=== PATIENT | female | born 1950 | race Caucasian/White ===

== ENCOUNTER → 2017-04-02 | Outpatient (CLI) | payer OTHER ==
--- NOTE | 2017-04-02 16:41 | MAMMOGRAPHY REPORT ---
BILATERAL DIGITAL SCREENING MAMMOGRAM WITH CAD: 04/02/2017 CLINICAL HISTORY: Routine screening. Patient has no complaints. TECHNIQUE: Bilateral CC and MLO views were obtained. Current study was also evaluated with a Comput er Aided Detection (CAD) system. COMPARISON: Comparison is made to exams dated: 03/29/2016 mammogram, 03/28/2015 mammogram, 01/13/2014 m ammogram - [facility], 01/20/2013 mammogram, and 02/02/2013 mammogram - [facility]. BREAST COMPOSITION: The tissue of both breasts is heterogeneously dense, which may obscure small ma sses. FINDINGS: There is a 10 mm focal asymmetry in the upper outer posterior left breast, for which charlie tional spot compression tomosynthesis views and targeted ultrasound are recommended. A possible clu ster of microcalcifications in the posterior left breast, along the posterior nipple line on the CC view, thought to project inferiorly on the MLO view, warrant additional spot magnification views. There are stable postsurgical changes in the right breast, with a few stable coarse benign-appearing calcifications. No other suspicious mass, architectural distortion or cluster of microcalcification s is seen. IMPRESSION: ACR BI-RADS CATEGORY 0: INCOMPLETE EVALUATION: NEED ADDITIONAL IMAGING EVALUATION The 10 mm focal asymmetry in the left upper outer breast, and possible cluster of microcalcification s in the posterior left breast need additional evaluation. The patient will be called to schedule an appointment. Approximately 10% of breast cancers are not detected with mammography. A negative mammographic repor t should not delay biopsy if a clinically suggestive mass is present. Johana Hahn M.D. ay/:04/02/2017 15:35:44 Line Repairer: Katya LOMBARDO(Lou)(Malia), [facility] letter sent: Addl Imaging 0 BI-RADS Code: ACR BI-RADS Category 0: Incomplete Evaluation: Need Additional Imaging Evaluation
== END | disposition home or self-care (01) ==
LOC: C.MAMM 08:57
PROVIDERS: ATTEND Family Medicine
DX: Z12.31 Encounter for screening mammogram for malignant neoplasm of breast (principal); N64.9 Disorder of breast, unspecified

== ENCOUNTER → 2017-04-10 | Outpatient (CLI) | payer OTHER ==
--- NOTE | 2017-04-10 14:11 | MAMMOGRAPHY REPORT ---
UNILATERAL LEFT DIGITAL DIAGNOSTIC MAMMOGRAM TOMOSYNTHESIS AND TARGETED LEFT ULTRASOUND: 04/10/2017 CLINICAL HISTORY: Callback from screening mammogram for left breast asymmetry and left breast calcif ications. TECHNIQUE: Breast tomosynthesis in addition to standard 2D mammography was performed. Spot giorgi khris left CC and MLO 2-D and tomosynthesis images, spot magnification left CC and ML views, and 2-D left MLO views were obtained. COMPARISON: Comparison is made to exams dated: 04/02/2017 mammogram, 03/29/2016 mammogram, 03/28/2015 mammogram, 01/13/2014 mammogram, 10/02/2013 specimen, and 10/02/2013 [facility]. BREAST COMPOSITION: The tissue of the left breast is heterogeneously dense, which may obscure small masses. FINDINGS: Spot compression views of the left breast demonstrate a focal asymmetry in the left upper outer quadrant with a nodular 7 mm component, best seen on the MLO view. The asymmetry appears some what similar to the January 2014 exam although the nodular component is new. Spot magnification views of the left breast demonstrate a 9 mm group of punctate and round calcifications in the left centra l breast posteriorly, which appear slightly increased compared to prior exams. Given the interval i ncrease, the calcifications are indeterminate and stereotactic biopsy is recommended for further dmitry luation. Targeted ultrasound was performed of the left upper outer quadrant in the region of the focal asymme try. In the left breast at 1:00, 8 cm from the nipple, there is a grouping of 3 oval anechoic circu mscribed masses, two measuring 4 mm and the other measuring 3 mm. These are consistent with benign simple cysts and correspond with the focal asymmetry. No suspicious solid masses are seen in this r egion. IMPRESSION: ACR BI-RADS CATEGORY 4: SUSPICIOUS, TARGETED ULTRASOUND ACR BI-RADS CATEGORY 4: SUSPICI OUS 1. Grouped calcifications in the left central breast posteriorly are increased compared to prior ex ams and are therefore indeterminant. Recommend stereotactic biopsy for further evaluation. 2. Group of 3 adjacent benign cysts in the left breast at 1:00 on ultrasound, which correspond with the mammographic focal asymmetry. A phone call was made to the physician's office to confirm faxed results were received. The patient has been verbally notified of the results. She tentatively scheduled the biopsy before leaving the department. Approximately 10% of breast cancers are not detected with mammography. A negative mammographic repor t should not delay biopsy if a clinically suggestive mass is present. Martina Ty M.D. ah/:04/10/2017 12:03:17 Pathology Manager: Kellie PHAM (R)), [facility] letter sent: Abnormal 4/5 BI-RADS Code: ACR BI-RADS Category 4: Suspicious Ultrasound BI-RADS: ACR BI-RADS Category 4: Suspic ious
== END | disposition home or self-care (01) ==
LOC: C.MAMM 11:16
PROVIDERS: ATTEND Family Medicine
DX: R92.0 Mammographic microcalcification found on diagnostic imaging of breast (principal)

== ENCOUNTER → 2017-04-16 | Outpatient (CLI) | payer OTHER ==
--- NOTE | 2017-04-16 13:29 | Discharge Instructions ---
Discharge Instructions Procedure Procedure Date: Apr 16, 2017. Reason for visit: Left Calcifications. Discharge Discharge Date: Apr 16, 2017. Discharge Diagnosis: post left breast stereotactic guided biopsy Instructions Activity Recommendations: Additional Limitations (see below) Return to School/Work: no limitations Recommended Home Diet: No Limitations Provider Instructions: ACTIVITY RECOMMENDATIONS: * No lifting, pushing, pulling or exercising the affected side for three days. RETURN TO SCHOOL/WORK: * You may return to work/school after the procedure, but do not perform any strenuous activities for 24 to 48 hours. MEDICATIONS: * Tylenol (two 325 mg) every four to six hours if needed for mild pain (if not allergic to Tylenol). DIET: * Resume previous diet. SPECIAL CARE INSTRUCTIONS: * Keep biopsy site dry for 24 hours. May shower after 24 hours, but do not soak (bathe) incision. * May remove Tegaderm (plastic patch) tomorrow AFTER showering. * Leave the steri-strips on for one week. Allow the steri-strips to fall off by themselves. If not off after one week, you may remove them. You may place a Bandaid crosswise over the strips, if desired. * Apply ice 10 minutes on and 10 minutes off as needed. * Wear a bra at bedtime to sleep more comfortably for 2-3 days. * Your referring physician should have the results after approximately 5 to 7 business days. * Call for unusual bleeding, fever, drainage, etc or if you have any questions call [phone] during normal business hours or after hours call Dr Hahn, . FOLLOW UP VISIT: Follow-up with Referring Physician as scheduled. Allergies Coded Allergies: Propoxyphene (Verified Allergy, Unknown, GI SYMPTOMS, 10/02/13) Tom Coronado Recommendations: Call your doctor if: * Temperature above 101 degrees * Pain not relieved by pain medicine ordered * There is increased drainage or redness from any incision * You have any unanswered questions or concerns. Your Doctors Instructions noted above were prepared by provider Johana Hahn. Patient Signature Section: Patient Instructions Signature Page Suzanne Maddox Patient (or Guardian) Signature/Date: I have read and understand the instructions given to me by my caregivers. Caregiver/RN/Doctor Signature/Date: The above-named patient and/or guardian has received patient instructions on this date. + Original Patient Signature Page (only) stays with chart. Please make copy for patient.
--- NOTE | 2017-04-16 16:15 | MAMMOGRAPHY REPORT ---
THIS REPORT HAS BEEN AMENDED. AMENDMENT: 04/24/2017 Johana Hahn M.D. Pathology results from a stereotactic guided biopsy of clustered microcalcifications in the 6:00 post erior left breast yielded a fibroadenomatoid nodule with microcalcifications. Negative for in situ a nd invasive carcinoma. The pathology results are concordant with the imaging appearance. Given that a another similar appearing cluster of microcalcifications was identified posterior to the biopsied cluster during the biopsy imaging, a six-month follow-up diagnostic left mammogram including repeat s pot magnification views is recommended to ensure stability of the other cluster in 6 months. STEREOTACTIC GUIDED BIOPSY LEFT BREAST: 04/16/2017 CLINICAL HISTORY: Indeterminate clustered microcalcifications in the 6:00 posterior left breast. Pat ient present for stereotactic biopsy. COMPARISON: Comparison is made to exams dated: 04/10/2017 ultrasound, 04/10/2017 mammogram, 04/02/2017 mammogram, 03/29/2016 mammogram, 03/28/2015 mammogram, and 01/13/2014 mammogram - [facility]. PATIENT CONSENT: After explaining the risks, benefits and alternatives of the procedure to the patien t, informed consent was obtained both verbally and in writing. Specific risks include: Bleeding, inf ection, puncture of adjacent structure, pain, nontarget biopsy, sampling error, metal allergy and med ication reaction. PROCEDURE DESCRIPTION: A time-out was performed and the left breast was confirmed as the site of biop sy. The patient was placed prone on the stereotactic biopsy table and the breast was placed in CC fro m below compression. A battery plate remover image was obtained that demonstrated the clustered microcalcifications i n question. They are amenable to sterotactic biopsy. Then +15 and -15 stereo pair images were obta ined. The calcifications were targeted utilizing the coordinates obtained by the computer. The skin was prepped with Betadine. 1% Lidocaine with and without epinipherine was administered as local anest hesia. A small skin incision was made. Through the incision, the needle was inserted to the depth de termined by the computer. 6 samples were obtained using a batterii 9-gauge vacuum-assisted biopsy device. The specimen radiograph demonstrated several sales representative sales manager microcalcifications, therefore, a metallic marker was placed at the biopsy site. There was no immediate complication. Hemostasis was a chieved after several minutes of manual compression. The samples were sent to pathology in 1 appropr iately labeled container, as calcifications were scattered throughout all of the specimen obtained. Postprocedure CC and ML views of the left breast were obtained. There is a new dumbbell shaped meta llic biopsy marker and no significant hematoma in the 6:00 far posterior left breast, at the site of the clustered microcalcifications in question. It should be noted that a second similar appearing cl uster of round and punctate microcalcifications is identified 16 mm posterior to the metallic biopsy marker, which are located more posterior than the biopsied cluster and were not identified on prior e xams given the far posterior location. Given that the morphology is similar to the biopsied cluster, pending benign pathology results could follow this additional cluster in 6 months to ensure stabilit y. IMPRESSION: STEREOTACTIC GUIDED BIOPSY 1. Status post left breast stereotactic guided biopsy of a cluster of microcalcifications in the 6:0 0 posterior left breast, with biopsy marker placed at the site. 2. A second similar appearing cluster of rounded punctate microcalcifications was visualized posteri or to the biopsy marker clip on the postprocedure mammograms, and given the far posterior location wa s not seen on prior screening or diagnostic mammograms. Given that the morphology is similar to the biopsied cluster, pending benign pathology results could follow this second cluster in 6 months to en sure stability. The patient will receive notification of the biopsy results from her referring physician. Johana Hahn M.D. ay/:04/16/2017 13:41:27 Attending Technologist: Katya Russell RT(R)(M), [facility] Senior Ios Software Engineer: Ame LOMBARDO(R)(M), [facility]
--- NOTE | 2017-04-16 16:17 | MAMMOGRAPHY REPORT ---
UNILATERAL LEFT DIGITAL DIAGNOSTIC MAMMOGRAM: 04/16/2017 CLINICAL HISTORY: Status post stereotactic guided biopsy of clustered microcalcifications in the 6:00 posterior left breast. Please refer to the report from left breast stereotactic biopsy performed at the same time for full d etail. IMPRESSION: POST PROCEDURE IMAGING FOR MARKER PLACEMENT Please refer to the report from left breast stereotactic biopsy performed at the same time for full d etail. Approximately 10% of breast cancers are not detected with mammography. A negative mammographic report should not delay biopsy if a clinically suggestive mass is present. Johana Hahn M.D. ay/:04/16/2017 13:30:16 Attending Technologist: Katya Russell RT(R)(M), [facility] [employer] Specialists: Ame Rothman RT(R)(M), [facility] BI-RADS Code: Post Procedure Imaging For Marker Placement
== END | disposition home or self-care (01) ==
LOC: C.MAMM 12:06
PROVIDERS: ATTEND Family Medicine
DX: R92.0 Mammographic microcalcification found on diagnostic imaging of breast (principal); D24.2 Benign neoplasm of left breast

== ENCOUNTER → 2017-10-17 | Outpatient (CLI) | payer OTHER ==
--- NOTE | 2017-10-17 14:36 | MAMMOGRAPHY REPORT ---
UNILATERAL LEFT DIGITAL DIAGNOSTIC MAMMOGRAM WITH CAD: 10/17/2017 CLINICAL HISTORY: History of benign stereotactic biopsy of left breast calcifications, with pathology yielding a fibroadenomatoid nodule. The patient presents for short interval follow-up another clust er of calcifications in the left breast. TECHNIQUE: Current study was also evaluated with a Computer Aided Detection (CAD) system. Left CC a nd MLO and spot magnification left CC and MLO views were obtained. COMPARISON: Comparison is made to exams dated: 04/16/2017 mammogram, 04/16/2017 stereotactic biopsy, 03/13 ultrasound, 04/10/2017 mammogram, 04/02/2017 mammogram, and 03/29/2016 mammogram - [facility]. BREAST COMPOSITION: The tissue of the left breast is heterogeneously dense, which may obscure small masses. FINDINGS: A biopsy marker clip is seen within the left 6:00 posterior breast from prior benign stere otactic biopsy. In the left central breast, posterior to the biopsy marker clip on the cc view, ther e is a small 2 mm cluster of punctate calcifications. The calcifications are stable compared to the postprocedural mammograms dated 04/16/2017. Additionally, the calcifications appear similar to the rec ently biopsied calcifications which yielded benign pathology. The calcifications are probably benign and another short interval follow-up is recommended. The remainder of the left breast is stable compared to prior exams, without suspicious masses, calcif ications, or areas of architectural distortion noted. Other scattered benign-appearing calcification s are not significantly changed. Left superior breast asymmetry on the MLO view is stable compared t o multiple prior exams. IMPRESSION: ACR-BI-RADS CATEGORY 3: PROBABLY BENIGN Small 2 mm cluster of calcifications in the left central posterior breast is stable compared to the J une 2017 exam and appears similar to the recently biopsied calcifications which yielded benign pathol ogy. The calcifications are probably benign and recommend bilateral diagnostic mammograms in 6 month s to reevaluate the left breast calcifications and for routine mammography of the right breast. The patient has been verbally notified of the results. Approximately 10% of breast cancers are not detected with mammography. A negative mammographic report should not delay biopsy if a clinically suggestive mass is present. Martina Ty M.D. ah/:10/17/2017 14:09:17 Spray Gun Sizer: Susu Carter, [facility] letter sent: Follow Up Recommended 3 BI-RADS Code: ACR-BI-RADS Category 3: Probably Benign
== END | disposition home or self-care (01) ==
LOC: C.MAMM 13:19
PROVIDERS: ATTEND Family Medicine
DX: Z12.31 Encounter for screening mammogram for malignant neoplasm of breast (principal); R92.1 Mammographic calcification found on diagnostic imaging of breast

== ENCOUNTER 2018-01-21 17:45 | Inpatient (IN) | payer OTHER ==
[~2018-01-21] VITALS: Ht 165.1 cm; Wt 91.2 kg
[2018-01-21] MEDS ORDERED: DILTIAZEM HCL 5 MG/ML 5 ML VIAL IV STA (19:57)
[2018-01-21] MEDS ORDERED: DILTIAZEM BOLUS / DRIP IV STA ×2 (19:57→21:01)
[2018-01-21] MEDS ORDERED: COEN1CAP PO (20:12)
[2018-01-21] MEDS ORDERED: FERR1TAB13 PO (20:12)
[2018-01-21] MEDS ORDERED: GLC/500 PO (20:12)
[2018-01-21] MEDS ORDERED: CRS10 PO (20:12)
[2018-01-21] MEDS ORDERED: GLIM1TAB PO (20:12)
[2018-01-21] MEDS ORDERED: KRIL1CAP24 (20:12)
[2018-01-21] MEDS ORDERED: CZR50 PO (20:12)
[2018-01-21] MEDS ORDERED: FURO-85 PO (20:12)
[2018-01-21] MEDS ORDERED: FERR1TAB23 PO (20:12)
[2018-01-21 20:24] LABS: BASO % 0.2 %; BASO ABS # 0.02 K/uL (0-0.2); EOS % 0.1 %; EOS ABS # 0.01 K/uL (0-0.5); HEMATOCRIT 40.3 % (37-47); HEMOGLOBIN 13.5 g/dL (12.0-16.0); IG# 0.03 K/uL (0.00-0.02); LYMPH % 15.7 %; LYMPH ABS # 1.72 K/uL (1.2-3.4); MEAN CELL VOLUME 83.8 fL (80-100); MEAN CORPUSCULAR HEMOGLOBIN 28.1 pg (25-34); MEAN CORPUSCULAR HGB CONC 33.5 g/dl (32-36); MEAN PLATELET VOLUME 10.3 fL (7.4-10.4); MONO % 5.3 %; MONO ABS # 0.58 K/uL (0.11-0.59); NEUT % 78.4 %; NEUT ABS # 8.63 K/uL (1.4-6.5); PLATELET COUNT 487 K/uL (130-400); RED CELL DISTRIBUTION WIDTH SD 46.4 fL (36.4-46.3); WHITE BLOOD COUNT 10.99 K/uL (4.8-10.8)
[2018-01-21] MEDS: DILTIAZEM HCL INJ 125 MG in DEXTROSE 5% 100ML IV PRN (20:35)
[2018-01-21 20:38] LABS: CALCIUM 9.6 mg/dl (8.5-10.1); CREATININE 1.01 mg/dl (0.60-1.20); POTASSIUM 3.7 mmol/L (3.5-5.1)
--- NOTE | 2018-01-21 20:42 | DIAGNOSTIC IMAGING REPORT ---
CHEST ONE VIEW PORTABLE CLINICAL HISTORY: Shortness of breath. COMPARISON STUDY: No previous studies for comparison. FINDINGS: Lung volumes are normal. No pneumothorax or pleural effusion is noted. There is no evidence for pulmonary edema. Moderate cardiomegaly is noted. Lower mediastinal contour abnormality favors a hiatal hernia. IMPRESSION: 1. No consolidation to suggest pneumonia. 2. Moderate cardiomegaly without evidence for pulmonary edema. 3. Lower mediastinal contour abnormality which is nonspecific but favors a hiatal hernia. Follow-up PA and lateral chest radiographs are recommended. Electronically signed by: Hussain German M.D. 01/21/2018 8:41 PM Dictated Date/Time: 01/21/2018 8:40 PM
[2018-01-21] MEDS ORDERED: ALUMINUM/MAGNESIUM/SIMETH (MAALOX MAX) 30 ML UDC PO PRN (21:15)
[2018-01-21] MEDS ORDERED: ACETAMINOPHEN 325 MG TAB PO PRN (21:15)
[2018-01-21] MEDS ORDERED: ONDANSETRON INJ 2 MG/ML 2 ML VIAL IV PRN (21:15)
[2018-01-21] MEDS ORDERED: POLYETHYLENE (MIRALAX) 17 GM PACK PO PRN (21:15)
[2018-01-21] MEDS ORDERED: MAGNESIUM HYDROXIDE SUSP 30 ML UDC PO PRN (21:15)
[2018-01-21] MEDS ORDERED: MoRPHine SULFATE 2 MG/ML CARP IV PRN (21:15)
[2018-01-21] MEDS ORDERED: ZOLPIDEM TARTRATE 5 MG TAB PO PRN (21:15)
[2018-01-21] MEDS ORDERED: ENOXAPARIN 100 MG/1ML SYR SQ STA (21:30)
--- NOTE | 2018-01-21 21:37 | History and Physical ---
History & Physical Date & Time of Service: Jan 21, 2018 at 21:29 Chief Complaint: A-Fib,Irregular Heart Beat Primary Care Physician: Rickey Maddox D.O. History of Present Illness Source: patient, hospital records 67 y/o F Hx DM II, HTN, HPL, obese. Pt visited her primary MD for a 3 month routine DM visit. Her MD listened to her heart and noted and irregular rapid rate. AN EKG was obtained confirming AF w a rapid response. She was referred to the hospital for further evaluation. She denies CP, SOB, N/V or fevers. She c/o some fatigue over the last few months. She has otherwise not been aware of her irregular, rapid heart rhythm. Past Medical/Surgical History 1) DM 2) HTN 3) HPL 4) Obese Family History No pertinent family history Mother living - DM Father CAD Social History Smoking Status: Never Smoker Allergies Coded Allergies: Propoxyphene (Verified Allergy, Unknown, GI SYMPTOMS, 01/21/18) Home Medications Scheduled Ferrous Sulfate (Kp Ferrous Sulfate), 1 TAB PO DAILY Furosemide (Lasix), 20 MG PO DAILY Glimepiride (Amaryl), 1 MG PO QPM Losartan Potassium (Losartan Potassium), 50 MG PO DAILY Metformin Hcl (Glucophage), 500 MG PO BID Rosuvastatin Calcium (Crestor), 10 MG PO QPM Miscellaneous Medications Coenzyme Q10 (Ubidecarenone) (Co Q10), 1 CAP PO Ferrous Sulfate (Iron), 325 MG PO Krill Oil (Krill Oil 500 mg) Review of Systems Constitutional: + fatigue, No fever, No chills, No sweats Eyes: No worsening of vision ENT: No hearing loss, No nasal symptoms Respiratory: No cough, No sputum, No wheezing Cardiovascular: No chest pain, No orthopnea, No PND Abdomen: No pain, No nausea, No vomiting Musculoskeletal: No joint pain Genitourinary - Female: No dysuria, No urinary frequency, No urinary urgency Neurologic: No memory loss, No paralysis, No weakness Psychiatric: No depression symptoms Endocrine: + fatigue Hematologic / Lymphatic: No abnormal bleeding/bruising Integumentary: No rash Physical Exam Vital Signs Date Time Temp Pulse Resp B/P (MAP) Pulse Ox O2 Delivery O2 Flow Rate FiO2 01/21/18 20:15 135 16 97 01/21/18 20:14 137 01/21/18 20:11 128/97 01/21/18 18:00 96 Room Air 01/21/18 17:56 36.9 123 20 136/97 96 Room Air General Appearance: WD/WN, no apparent distress Head: normocephalic Eyes: normal inspection ENT: normal ENT inspection, pharynx normal Neck: supple, no adenopathy, no JVD Respiratory/Chest: chest non-tender, lungs clear, normal breath sounds Cardiovascular: regular rate, rhythm, no edema, no gallop Abdomen/GI: normal bowel sounds, non tender, soft Back: normal inspection, no CVA tenderness Extremities/Musculoskelatal: normal inspection, no calf tenderness, normal capillary refill Neurologic/Psych: nozzle operator II-XII nml as tested, no motor/sensory deficits, alert Skin: normal color Diagnostics Laboratory Results Results Past 24 Hours Test 01/21/18 20:05 01/21/18 20:10 Range/Units White Blood Count 10.99 4.8-10.8 K/uL Red Blood Count 4.81 4.2-5.4 M/uL Hemoglobin 13.5 12.0-16.0 g/dL Hematocrit 40.3 37-47 % Mean Corpuscular Volume 83.8 80-100 fL Mean Corpuscular Hemoglobin 28.1 25-34 pg Mean Corpuscular Hemoglobin Concent 33.5 32-36 g/dl Platelet Count 487 130-400 K/uL Mean Platelet Volume 10.3 7.4-10.4 fL Neutrophils (%) (Auto) 78.4 % Lymphocytes (%) (Auto) 15.7 % Monocytes (%) (Auto) 5.3 % Eosinophils (%) (Auto) 0.1 % Basophils (%) (Auto) 0.2 % Neutrophils # (Auto) 8.63 1.4-6.5 K/uL Lymphocytes # (Auto) 1.72 1.2-3.4 K/uL Monocytes # (Auto) 0.58 0.11-0.59 K/uL Eosinophils # (Auto) 0.01 0-0.5 K/uL Basophils # (Auto) 0.02 0-0.2 K/uL RDW Standard Deviation 46.4 36.4-46.3 fL RDW Coefficient of Variation 15.0 11.5-14.5 % Immature Granulocyte % (Auto) 0.3 % Immature Granulocyte # (Auto) 0.03 0.00-0.02 K/uL Prothrombin Time 10.6 9.0-12.0 SECONDS Prothromb Time International Ratio 1.0 0.9-1.1 Activated Partial Thromboplast Time 26.0 21.0-31.0 SECONDS Partial Thromboplastin Ratio 1.0 Sodium Level 136 136-145 mmol/L Potassium Level 3.7 3.5-5.1 mmol/L Chloride Level 101 98-107 mmol/L Carbon Dioxide Level 26 21-32 mmol/L Anion Gap 9.0 3-11 mmol/L Blood Urea Nitrogen 12 7-18 mg/dl Creatinine 1.01 0.60-1.20 mg/dl Est Creatinine Clear Calc Drug Dose 59.3 ml/min Estimated GFR () 65.8 Estimated GFR (Non- 56.8 BUN/Creatinine Ratio 11.9 10-20 Random Glucose 215 70-99 mg/dl Calcium Level 9.6 8.5-10.1 mg/dl Magnesium Level 2.2 1.8-2.4 mg/dl Thyroid Stimulating Hormone (TSH) 2.090 0.300-4.500 uIu/ml Free Thyroxine 1.20 0.80-1.60 ng/dl Bedside Troponin I 0.030 0-0.045 ng/ml EKG AF, RVR - rate ~ 150 Impression Assessment and Plan 67 y/o F Hx DM II, HTN, HPL, obese. Pt visited her primary MD for a 3 month routine DM visit. Her MD listened to her heart and noted and irregular rapid rate. AN EKG was obtained confirming AF w a rapid response. She was referred to the hospital for further evaluation. She denies CP, SOB, N/V or fevers. She c/o some fatigue over the last few months. She has otherwise not been aware of her irregular, rapid heart rhythm. 1) AF/RVR - placed on a Cardizem drip and anticoagulated with Lovenox. We will request an echo and cardiology evaluation AM. She is seemingly a good candidate for oral anticoagulation and qualifies based on her CHADs score. 2) HTN - Losartan held to allow for additional rate agents at present 3) DM - placed on SS 4) HPL - cont Crestor Full code - Lovenox prophylaxis Total time for this admit including review of labs, meds, imaging, records, EKG - discussion with pt and ER attending - 45 min Resuscitation Status VTE Prophylaxis Will order VTE Prophylaxis: Yes
[2018-01-21] MEDS: INSULIN ASPART 100 UNITS/ML 3 ML PEN SC SCH (22:00)
--- NOTE | 2018-01-21 22:09 | EMERGENCY ROOM VISIT NOTE ---
History Report prepared by Mani: Ramirez Miramontes Under the Supervision of: Dr. Edilberto Tan M.D. First contact with patient: 19:50 Chief Complaint: IRREGULAR HEARTBEAT Stated Complaint: A-FIB,IRREGULAR HEART BEAT Nursing Triage Summary: Patient ambulatory to triage with an upright and steady gait, states "I had my 3 month diabetes check with my PCP. He listened to my heart and said it was irregular. He said my heart has never sounded like this before. I have been told that I have an extra beat before. Today, they did an EKG and said that I am in A.Fib. I have never had that before. I have been feeling tired a lot recently. Sometimes, while doing steps, I feel short of breath." History of Present Illness The patient is a 67 year old female with a history of diabetes who presents to the Emergency Room with complaints of a persistent irregular heartbeat that was detected earlier this afternoon. She states that she went to her primary care physician's office for a routine checkup, and the doctor noticed that the patient had an irregular heartbeat that was most likely atrial fibrillation. The patient says that she has been a bit fatigued recently, and has noticed some shortness of breath when walking up and down stairs, but has mostly been feeling fine. She notes that she has not been having any pain. The patient adds that a year ago her primary care physician noticed that the patient had an extra beat. She denies any history of bleeding in her head or abdomen. The patient denies any fevers, chest pain, sensations of heart racing, vomiting, diarrhea, melena, or hematochezia. She also denies ever feeling like she will pass out. Source of History: patient Onset: Detected earlier this afternoon Position: other (heart) Symptom Intensity: atrial fibrillation Quality: other (irregular heartbeat) Timing: other (persistent) Associated Symptoms: No LOC, No fevers, No chest pain, No melena, No hematochezia Note: Associated symptoms: Denies sensations of heart racing. Review of Systems See HPI for pertinent positives & negatives. A total of 10 systems reviewed and were otherwise negative. Past Medical & Surgical Medical Problems: (1) Atrial fibrillation with rapid ventricular response (2) Diabetes (3) History of irregular heartbeat Family History No pertinent family history Social History Smoking Status: Never Smoker Drug Use: none Marital Status: Housing Status: lives with family Current/Historical Medications Scheduled Ferrous Sulfate ( Ferrous Sulfate), 1 TAB PO DAILY Furosemide (Lasix), 20 MG PO DAILY Glimepiride (Amaryl), 1 MG PO QPM Losartan Potassium (Losartan Potassium), 50 MG PO DAILY Metformin Hcl (Glucophage), 500 MG PO BID Rosuvastatin Calcium (Crestor), 10 MG PO QPM Miscellaneous Medications Coenzyme Q10 (Ubidecarenone) (Co Q10), 1 CAP PO Ferrous Sulfate (Iron), 325 MG PO Krill Oil (Krill Oil 500 mg) Allergies Coded Allergies: Propoxyphene (Verified Allergy, Unknown, GI SYMPTOMS, 01/21/18) Physical Exam Vital Signs Date Time Temp Pulse Resp B/P (MAP) Pulse Ox O2 Delivery O2 Flow Rate FiO2 01/21/18 21:06 132/90 01/21/18 21:05 126 14 97 01/21/18 21:01 117/87 01/21/18 21:00 126 15 97 01/21/18 20:56 125/84 01/21/18 20:55 122 12 97 01/21/18 20:51 117/80 01/21/18 20:50 124 12 96 01/21/18 20:46 127/105 01/21/18 20:45 136 12 97 01/21/18 20:41 127/88 01/21/18 20:40 121 13 97 01/21/18 20:36 124/99 01/21/18 20:35 116 21 97 01/21/18 20:33 132/95 01/21/18 20:31 128/92 01/21/18 20:30 125 14 99 01/21/18 20:25 142 19 97 01/21/18 20:20 134 14 97 01/21/18 20:15 135 16 97 01/21/18 20:14 137 01/21/18 20:11 128/97 01/21/18 18:00 96 Room Air 01/21/18 17:56 36.9 123 20 136/97 96 Room Air Physical Exam Constitutional: Vital signs reviewed. Eyes: Pupils are equal round reactive to light. Conjunctiva are noninjected. ENT: Pharynx is clear without erythema or exudate. Mucous membranes are moist. Neck supple without meningeal signs. Respiratory: Clear to auscultation bilaterally. Breath sounds are equal bilaterally. Cardiovascular: Tachycardic with a rate of 150. No rubs or gallops. GI: Soft, nondistended and nontender. Bowel sounds are present. Musculoskeletal: No peripheral edema. No lower extremity tenderness. Integumentary: No cyanosis. Neurological: The patient is awake and alert. No focal deficits. Psychiatric: Normal affect. Medical Decision & Procedures ER Provider Diagnostic Interpretation: X-ray results as stated below per interpretation by me and the radiologist: CHEST ONE VIEW PORTABLE CLINICAL HISTORY: Shortness of breath. COMPARISON STUDY: No previous studies for comparison. FINDINGS: Lung volumes are normal. No pneumothorax or pleural effusion is noted. There is no evidence for pulmonary edema. Moderate cardiomegaly is noted. Lower mediastinal contour abnormality favors a hiatal hernia. IMPRESSION: 1. No consolidation to suggest pneumonia. 2. Moderate cardiomegaly without evidence for pulmonary edema. 3. Lower mediastinal contour abnormality which is nonspecific but favors a hiatal hernia. Follow-up PA and lateral chest radiographs are recommended. Electronically signed by: Hussain German M.D. 01/21/2018 8:41 PM Dictated Date/Time: 01/21/2018 8:40 PM Laboratory Results 01/21/18 20:05 Red Blood Count 4.81, Mean Corpuscular Volume 83.8, Mean Corpuscular Hemoglobin 28.1, Mean Corpuscular Hemoglobin Concent 33.5, Mean Platelet Volume 10.3, Neutrophils (%) (Auto) 78.4, Lymphocytes (%) (Auto) 15.7, Monocytes (%) (Auto) 5.3, Eosinophils (%) (Auto) 0.1, Basophils (%) (Auto) 0.2, Neutrophils # (Auto) 8.63, Lymphocytes # (Auto) 1.72, Monocytes # (Auto) 0.58, Eosinophils # (Auto) 0.01, Basophils # (Auto) 0.02 01/21/18 20:05 Test 01/21/18 20:05 01/21/18 20:10 White Blood Count 10.99 K/uL (4.8-10.8) Red Blood Count 4.81 M/uL (4.2-5.4) Hemoglobin 13.5 g/dL (12.0-16.0) Hematocrit 40.3 % (37-47) Mean Corpuscular Volume 83.8 fL (80-100) Mean Corpuscular Hemoglobin 28.1 pg (25-34) Mean Corpuscular Hemoglobin Concent 33.5 g/dl (32-36) Platelet Count 487 K/uL (130-400) Mean Platelet Volume 10.3 fL (7.4-10.4) Neutrophils (%) (Auto) 78.4 % Lymphocytes (%) (Auto) 15.7 % Monocytes (%) (Auto) 5.3 % Eosinophils (%) (Auto) 0.1 % Basophils (%) (Auto) 0.2 % Neutrophils # (Auto) 8.63 K/uL (1.4-6.5) Lymphocytes # (Auto) 1.72 K/uL (1.2-3.4) Monocytes # (Auto) 0.58 K/uL (0.11-0.59) Eosinophils # (Auto) 0.01 K/uL (0-0.5) Basophils # (Auto) 0.02 K/uL (0-0.2) RDW Standard Deviation 46.4 fL (36.4-46.3) RDW Coefficient of Variation 15.0 % (11.5-14.5) Immature Granulocyte % (Auto) 0.3 % Immature Granulocyte # (Auto) 0.03 K/uL (0.00-0.02) Prothrombin Time 10.6 SECONDS (9.0-12.0) Prothromb Time International Ratio 1.0 (0.9-1.1) Activated Partial Thromboplast Time 26.0 SECONDS (21.0-31.0) Partial Thromboplastin Ratio 1.0 Anion Gap 9.0 mmol/L (3-11) Est Creatinine Clear Calc Drug Dose 59.3 ml/min Estimated GFR () 65.8 Estimated GFR (Non- 56.8 BUN/Creatinine Ratio 11.9 (10-20) Calcium Level 9.6 mg/dl (8.5-10.1) Magnesium Level 2.2 mg/dl (1.8-2.4) Thyroid Stimulating Hormone (TSH) 2.090 uIu/ml (0.300-4.500) Free Thyroxine 1.20 ng/dl (0.80-1.60) Bedside Troponin I 0.030 ng/ml (0-0.045) Laboratory results as reviewed by me. Medications Administered Medications (Trade) Dose Ordered Sig/Charis Route Start Time Stop Time Status Last Admin Dose Admin Diltiazem HCl (Cardizem Inj) 10 mg NOW STAT IV 01/21/18 19:57 01/21/18 20:00 DC 01/21/18 20:13 10 MG Diltiazem HCl 125 mg/Dextrose 125 ml @ 0 mls/hr Q0M PRN IV 01/21/18 20:30 02/20/18 20:29 01/21/18 20:35 10 MLS/HR ECG Per My Interpretation Indication: other (irregular heartbeat) Rate (beats per minute): 156 Rhythm: atrial fibrillation Findings: other (no ST elevations, QTS is 84 ms) ED Course 1950: The patient was evaluated in room B10. A complete history and physical exam was performed. 1956: Cardizem Inj 10 mg IV, Cardizem Bolus/Drip 1 ea IV. 2049: I reevaluated the patient and the Cardizem drip is running. Her heart rate is 125. She has no complaints. I discussed the test results and treatment plan with her, and she is agreeable. She will be evaluated for further treatment. 2058: Heparin on hold as hospitalist put in order for Lovenox. 2104: I reevaluated the patient and her heart rate is in the 120s still. I discussed the risk and benefits of IV Heparin. 2107: Dr. Pineda of [facility] internal medicine was informed of the patient. The patient will be further evaluated by Dr. Pineda. Medical Decision This is a 67-year-old female presents with an irregular heartbeat. Differential diagnosis includes dysrhythmia, atrial fibrillation, A. fib with RVR, electrolyte abnormality, metabolic derangement. I did perform a limited focused review of portions of the patient's old chart on the electronic medical record. The patient has had no recent pertinent visits to this hospital. I did evaluate the patient as noted above. IV access was established. The patient was placed on a continuous groundwater monitoring technician. I did order and personally review the patient's 12-lead EKG and chest x-ray as described above. The patient has atrial fibrillation with RVR. I did treat her with Cardizem 10 mg IV. She was also started on a Cardizem drip at 10 mg/h IV. I did order and review the patient's blood work as noted in the electronic medical record. I did discuss the case with the geriatric case manager. The hospitalist was informed of the patient. I did discuss risks and benefits of IV heparin with her. I did initially order IV heparin but told the nurse to hold this as the hospitalist had written for Lovenox. I did reassess the patient multiple times. Her heart rate did improve significantly. Medication Reconcilliation Current Medication List: was personally reviewed by me Blood Pressure Screening Patient's blood pressure: Elevated blood pressure Consults Time Called: 2100 Consulting Physician: Dr. Pineda of [facility] internal medicine Returned Call: [id number] Dr. Pineda of [facility] internal medicine was informed of the patient. The patient will be further evaluated by Dr. Pineda. Impression Primary Impression: Atrial fibrillation with RVR Additional Impression: New onset a-fib Critical Care I have personally spent 33 minutes of critical care time in the direct management of this patient. This includes bedside care, interpretation of diagnostic studies and testing, discussion with consultants and patient, and other required patient management activities. This time is in excess of all separately billable procedures. Scribe Attestation The scribe's documentation has been prepared under my direct and personally reviewed by me in its entirety. I confirm that the note above accurately reflects all work, treatment, procedures, and medical decision making performed by me. Departure Information Dispostion Being Evaluated By Hospitalist Referrals Rickey Maddox D.O. (PCP) Patient Instructions My [facility] Problem Qualifiers
[2018-01-21 22:40] VITALS: BP 149/94; PULSE 122; TEMP 36.8; O2SAT 96; Ht 165.1 cm; Wt 91.2 kg
[2018-01-21] MEDS ORDERED: DEXTROSE 50% 50 ML SYR IV PRN (22:45)
[2018-01-21] MEDS ORDERED: GLUCOSE 10 TABS/TUBE PO PRN (22:45)
[2018-01-21] MEDS ORDERED: GLUCOSE 40% GEL 15 GM TUBE PO PRN (22:45)
[2018-01-21] MEDS ORDERED: GLUCAGON FOR INJ 1 MG VIAL SQ PRN (22:45)
[2018-01-21] MEDS ORDERED: POTASSIUM CHLORIDE 20 MEQ TABCR PO SCH (23:00)
[2018-01-21] MEDS: ROSUVASTATIN CALCIUM 10 MG TAB PO SCH (23:35)
[2018-01-22] VITALS (16 sets, daily range): BP systolic 107–135; BP diastolic 61–104; PULSE 91–121; TEMP 36.4–37; O2SAT 95–97
[2018-01-22] MEDS: DILTIAZEM HCL INJ 125 MG in DEXTROSE 5% 100ML IV PRN (06:02)
[2018-01-22 06:45] LABS: HEMOGLOBIN 12.2 g/dL (12.0-16.0); MEAN CELL VOLUME 83.5 fL (80-100); MEAN CORPUSCULAR HEMOGLOBIN 27.5 pg (25-34); PLATELET COUNT 432 K/uL (130-400); RED CELL DISTRIBUTION WIDTH CV 15.1 % (11.5-14.5); RED CELL DISTRIBUTION WIDTH SD 46.2 fL (36.4-46.3); WHITE BLOOD COUNT 9.22 K/uL (4.8-10.8)
--- NOTE | 2018-01-22 06:57 | Family Medicine Progress Note ---
Progress Note Date of Service Jan 22, 2018. Subjective Pt evaluation today including: conversation w/ patient, physical exam, chart review, lab review, review of studies, conversation w/ computer consultant, review of inpatient medication list Patient feeling better since her heart rate has come down. In retrospect, she feels she started appreciating a sensation of fluttering ~2 days ago. She denies chest pain, lightheadedness, orthopnea or PND. She has noted more dyspnea with exertion and fatigued generally but attributed this to residual symptoms from a respiratory illness several months ago. She otherwise denies fevers/chills, headaches, abdominal pain. She has had mild chronic lower extremity swelling, for which she takes furosemide PRN. She has not noted recent worsening in the swelling. She has been tolerating diet without nausea or vomiting, ambulating without exacerbating symptoms, and voiding and stooling appropriately. ROS is unremarkable except as noted above. Objective Vital Signs Date Time Temp Pulse Resp B/P (MAP) Pulse Ox O2 Delivery O2 Flow Rate FiO2 01/22/18 06:04 102 133/73 (93) 01/22/18 05:30 93 121/80 (94) 01/22/18 04:14 37.0 108 20 130/85 (100) 95 Room Air 01/22/18 04:00 102 124/73 (90) 01/22/18 04:00 95 Room Air 01/22/18 03:30 121 132/79 (96) 01/22/18 02:00 99 109/61 (77) 01/22/18 01:30 107 132/104 (113) 01/22/18 01:07 101 121/95 (104) 01/22/18 00:30 108 118/82 (94) 01/22/18 00:00 121 135/97 (110) 01/21/18 22:40 36.8 122 149/94 96 Room Air 01/21/18 22:28 116 15 141/113 97 Room Air 01/21/18 22:01 127/91 01/21/18 21:56 129 16 97 01/21/18 21:46 118/82 01/21/18 21:41 115 18 94 01/21/18 21:31 128/80 01/21/18 21:26 137 16 97 01/21/18 21:20 111/90 01/21/18 21:11 124 24 96 01/21/18 21:06 132/90 01/21/18 21:05 126 14 97 01/21/18 21:01 117/87 01/21/18 21:00 126 15 97 01/21/18 20:56 125/84 01/21/18 20:55 122 12 97 01/21/18 20:51 117/80 01/21/18 20:50 124 12 96 01/21/18 20:46 127/105 01/21/18 20:45 136 12 97 01/21/18 20:41 127/88 01/21/18 20:40 121 13 97 01/21/18 20:36 124/99 01/21/18 20:35 116 21 97 01/21/18 20:33 132/95 01/21/18 20:31 128/92 01/21/18 20:30 125 14 99 01/21/18 20:25 142 19 97 01/21/18 20:20 134 14 97 01/21/18 20:15 135 16 97 01/21/18 20:14 137 01/21/18 20:11 128/97 01/21/18 18:00 96 Room Air 01/21/18 17:56 36.9 123 20 136/97 96 Room Air Physical Exam General Appearance: WD/WN, no apparent distress Eyes: normal inspection ENT: hearing grossly normal Neck: supple Respiratory/Chest: lungs clear, normal breath sounds, no respiratory distress, no accessory muscle use Cardiovascular: + tachycardia, + irregularly irregular Abdomen: normal bowel sounds, non tender, soft Extremities: normal inspection, no pedal edema Neurologic/Psychiatric: alert, normal mood/affect, oriented x 3 Skin: normal color, warm/dry, no rash Laboratory Results Results Past 24 Hours Test 01/21/18 20:05 01/21/18 20:10 01/21/18 23:03 01/22/18 06:23 Range/Units White Blood Count 10.99 9.22 4.8-10.8 K/uL Red Blood Count 4.81 4.43 4.2-5.4 M/uL Hemoglobin 13.5 12.2 12.0-16.0 g/dL Hematocrit 40.3 37.0 37-47 % Mean Corpuscular Volume 83.8 83.5 80-100 fL Mean Corpuscular Hemoglobin 28.1 27.5 25-34 pg Mean Corpuscular Hemoglobin Concent 33.5 33.0 32-36 g/dl Platelet Count 487 432 130-400 K/uL Mean Platelet Volume 10.3 10.0 7.4-10.4 fL Neutrophils (%) (Auto) 78.4 % Lymphocytes (%) (Auto) 15.7 % Monocytes (%) (Auto) 5.3 % Eosinophils (%) (Auto) 0.1 % Basophils (%) (Auto) 0.2 % Neutrophils # (Auto) 8.63 1.4-6.5 K/uL Lymphocytes # (Auto) 1.72 1.2-3.4 K/uL Monocytes # (Auto) 0.58 0.11-0.59 K/uL Eosinophils # (Auto) 0.01 0-0.5 K/uL Basophils # (Auto) 0.02 0-0.2 K/uL RDW Standard Deviation 46.4 46.2 36.4-46.3 fL RDW Coefficient of Variation 15.0 15.1 11.5-14.5 % Immature Granulocyte % (Auto) 0.3 % Immature Granulocyte # (Auto) 0.03 0.00-0.02 K/uL Prothrombin Time 10.6 9.0-12.0 SECONDS Prothromb Time International Ratio 1.0 0.9-1.1 Activated Partial Thromboplast Time 26.0 21.0-31.0 SECONDS Partial Thromboplastin Ratio 1.0 Sodium Level 136 140 136-145 mmol/L Potassium Level 3.7 3.8 3.5-5.1 mmol/L Chloride Level 101 104 98-107 mmol/L Carbon Dioxide Level 26 29 21-32 mmol/L Anion Gap 9.0 6.0 3-11 mmol/L Blood Urea Nitrogen 12 9 7-18 mg/dl Creatinine 1.01 0.82 0.60-1.20 mg/dl Est Creatinine Clear Calc Drug Dose 59.3 72.9 ml/min Estimated GFR () 65.8 84.6 Estimated GFR (Non- 56.8 73.0 BUN/Creatinine Ratio 11.9 10.8 10-20 Random Glucose 215 140 70-99 mg/dl Calcium Level 9.6 8.9 8.5-10.1 mg/dl Magnesium Level 2.2 2.2 1.8-2.4 mg/dl Thyroid Stimulating Hormone (TSH) 2.090 0.300-4.500 uIu/ml Free Thyroxine 1.20 0.80-1.60 ng/dl Bedside Troponin I 0.030 0-0.045 ng/ml Bedside Glucose 124 70-90 mg/dl Troponin I < 0.015 0-0.045 ng/ml Test 01/22/18 07:00 Range/Units Bedside Glucose 131 70-90 mg/dl Assessment and Plan 67 year old female with PMHx DM II, HTN, HLD, obesity, referred to hospital by PCP for new found a.fib Afib with RVR Cardiology consulted, recs appreciated - Diltiazem 60mg qid initiated, with titration down of diltiazem drip as appropriate to maintain rate control - Anticoagulation with Eliquis 5mg BID - Echo pending - May consider anti-arrhythmics and elective cardioversion once rate controlled , and depending on echo findings hx of snoring and new onset a fib - consider sleep study as outpatient. DMII - Home regimen held, placed on ISS HTN - Losartan held to allow for additional rate agents at present HLD - Continue atorvastatin Leg edema - Furosemide PRN worsening swelling Full code Continued [facility] stay due to: abnormal vital signs Discharge planning: home Resident Tracking Resident Involvement: Resident Care Provided Care Provided: Adult Hospital Medicine Reviewed: Pt Seen/Exam by Me History palpitation better on questioning - does reports significant snoring Constitutional: denies: fever Respiratory: negative: short of breath Cardiovascular: denies chest pain General Appearance: no apparent distress Respiratory: lungs clear, no respiratory distress Cardiovascular: irregularly irregular Neurologic/Psychiatric: alert, oriented x 3 Skin Characteristics: warm/dry Assessment/Plan Resident Physician Supervision Note: I independently interviewed and examined the patient and verified the davis history and physical, reviewed labs and image studies, discussed the case with the resident Dr. Kelly and agree with the findings and care plan.
[2018-01-22 07:24] LABS: BLOOD UREA NITROGEN 9 mg/dl (7-18); CALCIUM 8.9 mg/dl (8.5-10.1); CARBON DIOXIDE 29 mmol/L (21-32); CREATININE 0.82 mg/dl (0.60-1.20); GLUCOSE 140 mg/dl (70-99); POTASSIUM 3.8 mmol/L (3.5-5.1); SODIUM 140 mmol/L (136-145)
[2018-01-22] MEDS: INSULIN ASPART 100 UNITS/ML 3 ML PEN SC SCH ×4 (08:41→21:33)
[2018-01-22] MEDS: FUROSEMIDE 20 MG TAB PO SCH (08:41)
[2018-01-22] MEDS ORDERED: ENOXAPARIN 100 MG/1ML SYR SQ SCH (10:00)
--- NOTE | 2018-01-22 11:01 | CARDIOLOGY CONSULTATION ---
DATE OF CONSULTATION: 01/22/2018 REQUESTING PHYSICIAN: Dr. Paula Kelly. FIREPERSON: Masood Nichols D.O., [facility]. REASON FOR CONSULTATION: Atrial fibrillation with a rapid ventricular response. Dear Dr. Kelly, Thank you for requesting cardiology consultation with regards to Suzanne's new onset of atrial fibrillation. She notes she had a very significant upper respiratory tract infection in November and over a 2-week period, she was incredibly ill. She had no appetite. She was short of breath. She felt very tired. She notes food, which is not appealing. She was having a regularly scheduled followup with her primary care provider. During the examination, her heart rate was found to be very fast and irregular. An EKG confirmed atrial fibrillation with a rapid ventricular response. In questioning her in retrospect once she was told she was in atrial fibrillation, she might have noticed some very mild fluttering in her chest, but prior to that, she really did not notice any palpitations or fluttering or feeling her heart racing. She did not notice any increasing shortness of breath, chest tightness, chest pressure, lightheadedness, dizziness nor did she notice any worsening heart failure symptoms. In questioning her whether she has noticed a decline in her exercise capacity in the last 3-6 months, she has not really noticed any change. She was able to climb the basement stairs. 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 She can climb 2 flights of stairs denying any chest pain or chest pressure at the top nor does she note any panting when she reaches the top of 2 flights. Today, she does seem slightly short of breath talking in sentences, although she describes this as normal. She denies any palpitations, lightheadedness, dizziness, presyncope, or syncope. She does have mild chronic lower extremity edema for which she takes Lasix as needed. She sleeps on 1-1/2-2 pillows normally. She denies any bleeding, bruising, dark stools, black stools, fevers, chills, sweats, cough, or productive sputum. Her appetite and weight have been stable. She denies any increased abdominal distention. PAST MEDICAL HISTORY: 1. Atrial fibrillation of unknown duration, although she notes being having an office visit in November for which she was told she had extra beats, but was not described to be in atrial fibrillation. 2. Hypertension. 3. Diabetes mellitus type 2. 4. Hyperlipidemia. 5. Obesity. FAMILY HISTORY: Mom is still living at 94 with diabetes. Her father in his early to mid 80s from a heart attack. SOCIAL HISTORY: She is a lifetime nonsmoker. She denies any significant alcohol. She is . 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 ALLERGIES: PROPOXYPHENE. MEDICATIONS: Outpatient medications are reviewed as well as her inpatient medications are reviewed. PHYSICAL EXAMINATION: GENERAL: She is awake, alert, oriented x3. She is in no acute distress. VITAL SIGNS: Her heart rate is 91, respirations 16, blood pressure 118/70. Her sats are 95% on room air. HEENNT: 1+ carotid upstrokes, no evidence of carotid bruits. Jugular venous pressure appeared normal. Her sclerae is anicteric. Her hearing is normal. LUNGS: Clear to auscultation bilaterally. No rales, rhonchi or wheezing. HEART: Irregular rate and rhythm. No appreciable murmurs, rubs or gallops. There is no evidence of an RV lift. ABDOMEN: Soft, nontender, nondistended. Positive bowel sounds. EXTREMITIES: Mild bilateral lower extremity edema to the mid tibia. PSYCHIATRIC: Affect appeared appropriate. DIAGNOSTIC STUDIES: Chest x-ray no pneumonia, moderate cardiomegaly, no evidence of pulmonary edema, hiatal hernia. LABORATORY DATA: Her hemoglobin is 12.2. Her platelet count is 432. Her BMP is normal. Her troponins are negative. Her TSH and free T4 were normal. Her coags were normal. EKG, as interpreted by me, coarse atrial fibrillation with a rapid ventricular response, poor R-wave progression. IMPRESSION: 1. Atrial fibrillation of unknown duration with a CHADS2-VASc score of 4, that being her age, gender, hypertension and diabetes. 2. Longstanding diabetes mellitus type 2. 3. Longstanding hypertension. 4. Chronic mild lower extremity edema, question diastolic dysfunction. PLAN AND RECOMMENDATIONS: As I discussed with Suzanne, our first priority is to slow her heart rate down and protect her from having a stroke with her elevated CHADS2-VASc score. It sounds like at least in November when she was last evaluated in her family physician's office, she was in sinus rhythm, possibly with PACs or PVCs and now she has atrial fibrillation. I discussed with her the idea of rate control versus rhythm control strategies. Once we slow her heart rate down, we will have to see how she feels. Based on that, we can make a determination with regards to elective cardioversion. She is awaiting an echocardiogram and it will be important to assess her LV function and also her left atrial size. I would not be surprised with longstanding hypertension and diabetes that she has significant diastolic dysfunction and a dilated left atrium, which will make maintenance of sinus rhythm if we consider cardioversion much more difficult without antiarrhythmic therapy. At this point, I have stopped her Lovenox and switched her over to apixaban 5 mg b.i.d. I have added diltiazem 60 mg q.i.d. and her diltiazem drip can be titrated down as her heart rate and blood pressure allow. If we have difficulty controlling her heart rate, then at that point TANJA/cardioversion becomes an option. All this was discussed with her in detail. Clinically, she is not in heart failure nor is she having any anginal symptoms. Thank you for allowing us to participate in her care. WALI
[2018-01-22] MEDS: APIXABAN 2.5 MG TAB PO SCH ×2 (12:29→21:34)
[2018-01-22] MEDS: DILTIAZEM HCL 60 MG TAB PO SCH ×3 (12:29→21:34)
--- NOTE | 2018-01-22 14:12 | DIAGNOSTIC IMAGING REPORT ---
CHEST 2 VIEWS ROUTINE HISTORY: 67 years-old Female assess for hiatal as per radiology recommendations follow-up study to assess a mediastinal contour abnormality seen on comparison chest radiograph. COMPARISON: Chest radiograph 01/21/2018 TECHNIQUE: PA and lateral views of the chest FINDINGS: Cardiac silhouette is enlarged, unchanged. Atherosclerosis of the aorta. Moderate sized hiatal hernia with partially intrathoracic stomach redemonstrated. There is no pneumothorax, pleural effusion or overt pulmonary edema. Linear subsegmental left basilar opacities compatible with atelectasis/scarring. The lungs are mildly hyperinflated. There is increased kyphotic curvature of the thoracic spine with mildly demineralized appearance of the bones. Degenerative changes are seen within the shoulders and spine. IMPRESSION: 1. Cardiomegaly without acute process. 2. Moderate sized hiatal hernia. 3. Linear subsegmental left basilar opacities compatible with scarring/atelectasis. The above report was generated using voice recognition software. It may contain grammatical, syntax or spelling errors. Electronically signed by: Phoenix Noel M.D. 01/22/2018 2:11 PM Dictated Date/Time: 01/22/2018 2:08 PM
--- NOTE | 2018-01-22 17:20 | ECHOCARDIOGRAM REPORT ---
*NOTICE TO RECEIVING LIBERTARIAN AGENCY This information is strictly Confidential and protected under [place] law. [place] law prohibits you from making any further disclosure of this information unless further disclosure is expressly permitted by the written consent of the person to whom it pertains or is authorized by law. A general authorization for the release of medical or other information is not sufficient for this purpose. Hospital accepts no responsibility if the information is made available to any other person, INCLUDING THE PATIENT. Interpretation Summary * Name: BETSEY MUNIZ Study Date: 01/22/2018 01:20 PM BP: 125/95 mmHg * Patient Location: .2E\S\E210\S\1 HR: 96 * : 1950 (M/d/yyyy) Gender: Female Height: 65 in * Age: 67 yrs Ethnicity: [place] Weight: 204 lb * Ordering Physician: Paula Kelly. * Referring Physician: Rickey Maddox D.O. * Performed By: Rupal Franco RCS * * Reason For Study: A-FIB * BSA: 2.0 m2 * -- Conclusions -- * 1. Normal LV size, mild concentric LVH. * 2. Normal LV systolic function. LVEF 55-60%. No regional wall motion abnormalities. * 3. Normal RV size and function. * 4. Mild mitral regurgitation. * 5. Severe biatrial enlargement. * 6. Diastolic dysfunction. * 7. Severe pulmonary hypertension. Est PASP >60 mmHg. * 8. No prior studies for comparison. Procedure Details * A complete two-dimensional transthoracic echocardiogram was performed (2D, M-mode, Doppler and color flow Doppler). Left Ventricle * The left ventricle is grossly normal size. * There is mild concentric left ventricular hypertrophy. * Ejection Fraction = 55-60%. * No regional wall motion abnormalities noted. Right Ventricle * The right ventricle is grossly normal size. * The right ventricular systolic function is normal as assessed by tricuspid annular plane systolic excursion (TAPSE) (normal >1.5 cm). Atria * The left atrium is severely dilated. * The right atrium is severely dilated. * No ASD detected; PFO is not assessed. Mitral Valve * The mitral valve is grossly normal. * There is no mitral valve stenosis. * There is mild mitral regurgitation. Tricuspid Valve * There is no tricuspid stenosis. * There is mild to moderate tricuspid regurgitation. * Right ventricular systolic pressure is elevated at 50-60mmHg. Aortic Valve * The aortic valve opens well. * The aortic valve is trileaflet. * No hemodynamically significant valvular aortic stenosis. * There is no significant aortic regurgitation. Pulmonic Valve * There is no pulmonic valvular stenosis. * Trace pulmonic valvular regurgitation. Great Vessels * The aortic root and proximal ascending aorta are normal sized. Pericardium/Pleural * There is no pericardial effusion. Great Vessels * Dilated inferior vena cava with reduced collapsability with sniff indicates an elevated right atrial pressure of 15 mmHg Left Ventricular Diastolic Function * Diastolic dysfunction. MMode 2D Measurements and Calculations IVSd 1.4 cm IVSs 1.7 cm LVIDd 4.9 cm LVIDs 4.4 cm LVPWs 1.9 cm FS 10.3 % EDV(Teich) 111.9 ml ESV(Teich) 86.8 ml EF(Teich) 22.4 % EDV(cubed) 116.5 ml ESV(cubed) 84.1 ml EF(cubed) 27.8 % % IVS thick 18.4 % LV mass(C)s 356.2 grams LV mass(C)sI 178.6 grams/m\S\2 SV(Teich) 25.1 ml SI(Teich) 12.6 ml/m\S\2 SV(cubed) 32.4 ml SI(cubed) 16.2 ml/m\S\2 Ao root diam 3.3 cm Ao root area 8.3 cm\S\2 ACS 1.8 cm LA dimension 4.4 cm LA/Ao 1.3 LVOT diam 2.0 cm LVOT area 3.1 cm\S\2 LVAd ap4 23.4 cm\S\2 LVLd ap4 6.3 cm EDV(MOD-sp4) 69.2 ml EDV(sp4-el) 73.5 ml LVAs ap4 17.3 cm\S\2 LVLs ap4 5.5 cm ESV(MOD-sp4) 44.5 ml ESV(sp4-el) 46.5 ml EF(MOD-sp4) 35.7 % EF(sp4-el) 36.8 % SV(MOD-sp4) 24.7 ml SI(MOD-sp4) 12.4 ml/m\S\2 SV(sp4-el) 27.0 ml SI(sp4-el) 13.5 ml/m\S\2 Doppler Measurements and Calculations MV E max marshal 73.3 cm/sec MV P1/2t max marshal 97.6 cm/sec MV P1/2t 59.7 msec MVA(P1/2t) 3.7 cm\S\2 MV dec slope 479.1 cm/sec\S\2 MV dec time 0.16 sec Ao V2 max 106.8 cm/sec Ao max PG 4.6 mmHg Ao max PG (full) 2.2 mmHg [place](V,A) 2.2 cm\S\2 [place](V,D) 2.2 cm\S\2 LV V1 max PG 2.3 mmHg LV V1 max 76.0 cm/sec MR max marshal 427.9 cm/sec MR max PG 73.3 mmHg PA V2 max 77.0 cm/sec PA max PG 2.4 mmHg PI max marshal 219.6 cm/sec PI max PG 19.3 mmHg PI dec slope 240.0 cm/sec\S\2 PI P1/2t 267.9 msec TR max marshal 303.1 cm/sec
[2018-01-22] MEDS: ROSUVASTATIN CALCIUM 10 MG TAB PO SCH (21:33)
[2018-01-23] VITALS (9 sets, daily range): BP systolic 112–128; BP diastolic 67–100; PULSE 87–118; TEMP 36.5–37; O2SAT 95–96
[2018-01-23] MEDS: INSULIN ASPART 100 UNITS/ML 3 ML PEN SC SCH ×4 (07:00→21:00)
[2018-01-23] MEDS: APIXABAN 2.5 MG TAB PO SCH ×2 (07:42→21:00)
[2018-01-23] MEDS: DILTIAZEM HCL 60 MG TAB PO SCH ×4 (07:42→20:59)
[2018-01-23] MEDS: FUROSEMIDE 20 MG TAB PO SCH (07:43)
--- NOTE | 2018-01-23 08:26 | Cardiology Follow-Up ---
Subjective General Date of Service: Jan 23, 2018. Pt evaluation today including: conversation w/ patient, chart review, lab review, review of studies History of Present Illness The patient is a 67 year old female Allergies Coded Allergies: Propoxyphene (Verified Allergy, Unknown, GI SYMPTOMS, 01/21/18) Social History Smoking Status: Unknown if Ever Smoked Hx Tobacco Use In Past Year?: No Hx Alcohol Use - Type And Amou: No Hx Substance Use - Type And Am: No Problem List Medical Problems: (1) Atrial fibrillation with RVR Status: Acute (2) New onset a-fib Status: Acute Review of Systems Respiratory: No cough, No shortness of breath, No dyspnea at rest Cardiac: + edema, + palpitations, No chest pain Physical Exam Vital Signs Last Vital Signs Documentation Date Time Temp Pulse Resp B/P (MAP) Pulse Ox O2 Delivery O2 Flow Rate FiO2 01/23/18 08:00 96 Room Air 01/23/18 07:26 36.8 112 16 126/82 (97) Physical Exam Constitutional: General Apperance: heathly-appearing Level of Distress: NAD Lungs: Respiratory effort: no dyspnea Auscultation: breath sounds normal, no wheezing, no rales/crackles, no rhonchi Cardiovascular: Heart Auscultation: no murmurs, no rubs, tachycardia, irregular rate rhythm Abdomen: Bowel Sounds: normal Inspection & Palpation: soft, non-distended, no tenderness, guarding & rebound Extremities: edema (mild ) Assessment and Plan Assessment and Plan IMPRESSION: 1. Atrial fibrillation of unknown duration with a CHADS2-VASc score of 4, that being her age, gender, hypertension and diabetes. 2. Longstanding diabetes mellitus type 2. 3. Longstanding hypertension. 4. Chronic mild lower extremity edema- diastolic dysfunction and Pulm HTN 5. Severe Pulm HTN 6. Severe Biatrial enlargement Increase cardizem to 90 Q6 Dig load 0.25 x 3 doses then 0.125 daily Apixaban 5 BID Continue with lasix with severe Pum HTN and severe biatrial enlargement she will not maintain NSR even with an attempted CV needs outpt sleep study as she likely has JAZMYNE and possibly Obesity hypoventilation syndrome needs V/Q scan to r/o chronic thromboembolic disease (no Hx DVT or PE) Needs autoimmune workup (ESR, CELESTE, RF, CRP). If rate still fast tomorrow with change cardizem to 240mg CD BID Laboratory Results Last 24 Hours Test 01/22/18 11:26 01/22/18 16:12 01/22/18 20:41 01/23/18 06:32 Bedside Glucose 126 mg/dl 120 mg/dl 145 mg/dl 145 mg/dl
--- NOTE | 2018-01-23 09:02 | Family Medicine Progress Note ---
Progress Note Date of Service Jan 23, 2018. Subjective Pt evaluation today including: conversation w/ patient, physical exam, chart review, lab review, review of studies, conversation w/ business intelligence consultant, review of inpatient medication list Patient was feeling palpitations overnight. She feels better since her heart rate has come down with the increase in the diltiazem dose. She denies chest pain, lightheadedness, dyspnea at rest. She denies fevers/chills, headaches, abdominal pain. She has not noted changes in her lower extremity swelling. She has been tolerating diet without nausea or vomiting, and voiding and stooling appropriately. ROS is unremarkable except as noted above. Objective Vital Signs Date Time Temp Pulse Resp B/P (MAP) Pulse Ox O2 Delivery O2 Flow Rate FiO2 01/23/18 08:00 96 Room Air 01/23/18 07:26 36.8 112 16 126/82 (97) 96 Room Air 01/23/18 04:00 36.8 118 18 126/100 (109) 96 Room Air 01/23/18 04:00 96 Room Air 01/23/18 00:00 96 Room Air 01/23/18 00:00 36.5 115 123/73 (90) 96 Room Air 01/22/18 20:10 96 Room Air 01/22/18 19:26 36.7 107 20 126/93 (104) 96 Room Air 01/22/18 16:00 97 Room Air 01/22/18 15:30 36.8 95 18 107/69 (82) 96 Room Air 01/22/18 12:00 Room Air 01/22/18 11:03 36.5 102 18 125/95 (105) 96 01/22/18 09:08 Room Air Physical Exam Notes: General Appearance: WD/WN, no apparent distress Eyes: normal inspection ENT: hearing grossly normal Neck: supple Respiratory/Chest: lungs clear, normal breath sounds, no respiratory distress, no accessory muscle use Cardiovascular: + tachycardia, + irregularly irregular Abdomen: normal bowel sounds, non tender, soft Extremities: normal inspection, no pedal edema Neurologic/Psychiatric: alert, normal mood/affect, oriented x 3 Skin: normal color, warm/dry, no rash Laboratory Results Results Past 24 Hours Test 01/23/18 06:32 01/23/18 11:36 01/23/18 16:36 3/15/18 21:01 Range/Units Bedside Glucose 145 135 112 111 70-90 mg/dl Assessment and Plan 67 year old female with PMHx DM II, HTN, HLD, obesity, referred to hospital by PCP for new found a.fib Afib with RVR Cardiology consulted, recs appreciated - Diltiazem increased to 90mg qid to improve rate control - Echo showed severe biatrial enlargement, this makes her not ideal for cardioversion due to high likelihood of recurrence. As such anti-arrhythmic digoxin started: loading dose 250mcg x 3, followed by maintenance dose 125mcg daily. - Anticoagulation with Eliquis 5mg BID Right sided increased pressure and Severe pulmonary HTN - Echo shows severe pulmonary hypertension with estimated PASP >60 mmHg. Associated with normal RV size and function, mild mitral regurgitation, diastolic dysfunction - Given also the history of snoring and new onset a fib, consider sleep study as outpatient. - Likely contributing to leg edema DMII - Home regimen held, placed on ISS HTN - Consistent with echo findings of mild concentric LVH, LVEF normal 55-60% - Losartan held to allow for additional rate agents at present HLD - Continue atorvastatin Leg edema - Furosemide PRN worsening swelling Full code Continued [facility] stay due to: abnormal vital signs Discharge planning: home Resident Tracking Resident Involvement: Resident Care Provided Care Provided: Adult Hospital Medicine Reviewed: Pt Seen/Exam by Me History breathing and palpitation better Constitutional: denies: fever Cardiovascular: denies chest pain General Appearance: no apparent distress Respiratory: lungs clear, no respiratory distress Cardiovascular: irregularly irregular Neurologic/Psychiatric: alert, oriented x 3 Assessment/Plan Resident Physician Supervision Note: I independently interviewed and examined the patient and verified the davis history and physical, reviewed labs and image studies, discussed the case with the resident Dr. Kelly and agree with the findings and care plan.
[2018-01-23] MEDS: DIGOXIN IV 250 MCG in SYRINGE 9 ML IV SCH ×3 (10:05→20:59)
[2018-01-23] MEDS: ROSUVASTATIN CALCIUM 10 MG TAB PO SCH (21:00)
[2018-01-24] VITALS (7 sets, daily range): BP systolic 124–131; BP diastolic 77–95; PULSE 81–108; TEMP 36.5–36.8; O2SAT 95–96
[2018-01-24 07:00] LABS: HEMATOCRIT 44.7 % (37-47); HEMOGLOBIN 14.7 g/dL (12.0-16.0); MEAN CELL VOLUME 84.5 fL (80-100); MEAN CORPUSCULAR HEMOGLOBIN 27.8 pg (25-34); MEAN CORPUSCULAR HGB CONC 32.9 g/dl (32-36); MEAN PLATELET VOLUME 10.5 fL (7.4-10.4); PLATELET COUNT 494 K/uL (130-400); RED CELL DISTRIBUTION WIDTH SD 46.3 fL (36.4-46.3)
[2018-01-24] MEDS: INSULIN ASPART 100 UNITS/ML 3 ML PEN SC SCH ×2 (07:00→11:00)
[2018-01-24 07:28] LABS: CALCIUM 9.2 mg/dl (8.5-10.1); CREATININE 0.89 mg/dl (0.60-1.20); POTASSIUM 3.9 mmol/L (3.5-5.1)
[2018-01-24] MEDS: DILTIAZEM HCL 60 MG TAB PO SCH (08:30)
[2018-01-24] MEDS: FUROSEMIDE 20 MG TAB PO SCH (08:31)
[2018-01-24] MEDS: APIXABAN 2.5 MG TAB PO SCH (08:31)
--- NOTE | 2018-01-24 08:54 | Cardiology Follow-Up ---
Subjective General Date of Service: Jan 24, 2018. Pt evaluation today including: conversation w/ patient, chart review, lab review, review of studies History of Present Illness The patient is a 67 year old female Allergies Coded Allergies: Propoxyphene (Verified Allergy, Unknown, GI SYMPTOMS, 01/21/18) Social History Smoking Status: Unknown if Ever Smoked Hx Tobacco Use In Past Year?: No Hx Alcohol Use - Type And Amou: No Hx Substance Use - Type And Am: No Problem List Medical Problems: (1) Atrial fibrillation with RVR Status: Acute (2) New onset a-fib Status: Acute Review of Systems Respiratory: No shortness of breath, No dyspnea at rest Cardiac: + edema, No chest pain, No palpitations Additional ROS Details: Feels better Physical Exam Vital Signs Last Vital Signs Documentation Date Time Temp Pulse Resp B/P (MAP) Pulse Ox O2 Delivery O2 Flow Rate FiO2 01/24/18 07:58 36.5 108 18 129/95 (106) 95 Room Air Physical Exam Constitutional: General Apperance: heathly-appearing Level of Distress: NAD Lungs: Respiratory effort: no dyspnea Auscultation: breath sounds normal, no wheezing, no rales/crackles, no rhonchi Cardiovascular: Heart Auscultation: no murmurs, no rubs, tachycardia, irregular rate rhythm Abdomen: Bowel Sounds: normal Inspection & Palpation: soft, non-distended, no tenderness, guarding & rebound Extremities: edema ( left minimal right side) Assessment and Plan Assessment and Plan IMPRESSION: 1. Atrial fibrillation of unknown duration with a CHADS2-VASc score of 4, that being her age, gender, hypertension and diabetes. 2. Longstanding diabetes mellitus type 2. 3. Longstanding hypertension. 4. Chronic mild lower extremity edema- diastolic dysfunction and Pulm HTN 5. Severe Pulm HTN 6. Severe Biatrial enlargement Increase cardizem to CD 240mg BID Dig 0.125 daily Apixaban 5 BID Continue with lasix with severe Pum HTN and severe biatrial enlargement she will not maintain NSR even with an attempted CV needs outpt sleep study as she likely has JAZMYNE and possibly Obesity hypoventilation syndrome needs V/Q scan to r/o chronic thromboembolic disease (no Hx DVT or PE) Needs autoimmune workup (ESR, CELESTE, RF, CRP). Ok to home. rates much better although still room to improve (reason for increase cardizem this am) will arrange for outpt follow up next week Laboratory Results Last 24 Hours Test 01/23/18 11:36 01/23/18 16:36 01/23/18 21:01 01/24/18 06:21 Bedside Glucose 135 mg/dl 112 mg/dl 111 mg/dl 141 mg/dl Test 01/24/18 06:50 01/24/18 07:46 White Blood Count 12.10 K/uL Red Blood Count 5.29 M/uL Hemoglobin 14.7 g/dL Hematocrit 44.7 % Mean Corpuscular Volume 84.5 fL Mean Corpuscular Hemoglobin 27.8 pg Mean Corpuscular Hemoglobin Concent 32.9 g/dl RDW Standard Deviation 46.3 fL RDW Coefficient of Variation 15.0 % Platelet Count 494 K/uL Mean Platelet Volume 10.5 fL Sodium Level 137 mmol/L Potassium Level 3.9 mmol/L Chloride Level 103 mmol/L Carbon Dioxide Level 27 mmol/L Anion Gap 7.0 mmol/L Blood Urea Nitrogen 8 mg/dl Creatinine 0.89 mg/dl Est Creatinine Clear Calc Drug Dose 66.6 ml/min Estimated GFR () 76.6 Estimated GFR (Non- 66.1 BUN/Creatinine Ratio 8.8 Random Glucose 152 mg/dl Calcium Level 9.2 mg/dl Erythrocyte Sedimentation Rate 30 mm/hr C-Reactive Protein < 0.29 mg/dl
[2018-01-24] MEDS ORDERED: DILTIAZEM HCL 240 MG CAPCR PO SCH (09:00)
[2018-01-24] MEDS ORDERED: ELQ25 PO (10:17)
[2018-01-24] MEDS ORDERED: DLTCD/240 PO (10:17)
[2018-01-24] MEDS ORDERED: LNX125 PO (10:17)
[2018-01-24] MEDS ORDERED: APIX1TAB3 PO (10:34)
--- NOTE | 2018-01-24 10:55 | Discharge Instructions ---
Discharge Instructions Date of Service Jan 24, 2018. Admission Reason for Admission: A-Fib W/ Rapid Ventricular Response Discharge Discharge Diagnosis / Problem: Atrial fibrillation with rapid venrticular rate Discharge Goals Goal(s): Decrease discomfort, Improve disease control, Diagnostic testing, Therapeutic intervention Activity Recommendations Activity Limitations: resume your previous activity . Instructions / Follow-Up Instructions / Follow-Up You were admitted to the hospital with newly discovered atrial fibrillation with rapid ventricular rate. While in the hospital, goal of treatment was to control the rate of the heart. The ultra sound of the heart helped to determine that the addition of a rhythm control medication was also necessary. On discharge Diltazem (Cardizem) CD 240mg has been prescribed to be taken twice daily, and digoxin 125mcg is to be taken once daily. Additionally, it is recommended that we keep the blood anticoagulated. For this you have been prescribed apixaban (Eliquis) 5mg to be taken twice daily also. Follow up with cardiology, Dr Nichols, can be arranged in 1-2 weeks, and he will help to organize a V/Q mismatch scan. The echo also showed severe pulmonary hypertension. This can be caused by a number of things. We have ordered some blood tests, which are pending on discharge, to rule out rheumatologic causes. The most likely culprit is sleep apnea and or chronic thromboembolic disease On follow up with your PCP, please discuss referral for a sleep study. Please continue all other medications as previous. Thank you for allowing us to participate in your care. Current Hospital Diet Patient's current hospital diet: AHA Diet (Heart Healthy), Diabetes Type 2 Diet Discharge Diet Recommended Diet: AHA Diet (Heart Healthy), Diabetes Type 2 Diet Pending Studies Studies pending at discharge: yes List of pending studies: RF, CELESTE Medical Emergencies . Who to Call and When: Medical Emergencies: If at any time you feel your situation is an emergency, please call 911 immediately. . Non-Emergent Contact Non-Emergency issues call your: Primary Care Provider, Hospice Home Health Aide . . "Provider Documentation" section prepared by Paula Kelly. . Resident Tracking Resident Involvement: Resident Care Provided Care Provided: Adult Hospital Medicine
--- NOTE | 2018-01-24 10:59 | Discharge Summary ---
Discharge Summary Date of Service Jan 24, 2018. Discharge Summary Admission Date: Jan 21, 2018 at 21:08 Discharge Date: Jan 24, 2018 Discharge Disposition: Home Principal Diagnosis: Afib with RVR Problems/Secondary Diagnoses: Severe pulm HTN Procedures: ECHOCARDIOGRAM Interpretation Summary * Name: BETSEY MUNIZ Study Date: 01/22/2018 01:20 PM BP: 125/95 mmHg * -- Conclusions -- * 1. Normal LV size, mild concentric LVH. * 2. Normal LV systolic function. LVEF 55-60%. No regional wall motion abnormalities. * 3. Normal RV size and function. * 4. Mild mitral regurgitation. * 5. Severe biatrial enlargement. * 6. Diastolic dysfunction. * 7. Severe pulmonary hypertension. Est PASP >60 mmHg. * 8. No prior studies for comparison. Procedure Details * A complete two-dimensional transthoracic echocardiogram was performed (2D, M-mode, Doppler and color flow Doppler). Left Ventricle * The left ventricle is grossly normal size. * There is mild concentric left ventricular hypertrophy. * Ejection Fraction = 55-60%. * No regional wall motion abnormalities noted. Right Ventricle * The right ventricle is grossly normal size. * The right ventricular systolic function is normal as assessed by tricuspid annular plane systolic excursion (TAPSE) (normal >1.5 cm). Atria * The left atrium is severely dilated. * The right atrium is severely dilated. * No ASD detected; PFO is not assessed. Mitral Valve * The mitral valve is grossly normal. * There is no mitral valve stenosis. * There is mild mitral regurgitation. Tricuspid Valve * There is no tricuspid stenosis. * There is mild to moderate tricuspid regurgitation. * Right ventricular systolic pressure is elevated at 50-60mmHg. Aortic Valve * The aortic valve opens well. * The aortic valve is trileaflet. * No hemodynamically significant valvular aortic stenosis. * There is no significant aortic regurgitation. Pulmonic Valve * There is no pulmonic valvular stenosis. * Trace pulmonic valvular regurgitation. Great Vessels * The aortic root and proximal ascending aorta are normal sized. Pericardium/Pleural * There is no pericardial effusion. Great Vessels * Dilated inferior vena cava with reduced collapsability with sniff indicates an elevated right atrial pressure of 15 mmHg Left Ventricular Diastolic Function * Diastolic dysfunction. Medication Reconciliation New Medications: Apixaban (Eliquis) 5 Mg Tab 5 MG PO BID, #60 TAB Digoxin (Digoxin) 0.125 Mg Tab 0.125 MG PO DAILY@16, #30 TAB 2 Refills Diltiazem Hcl (Diltiazem Cd) 240 Mg Capcr 240 MG PO BID, #60 TAB 2 Refills Continued Medications: Coenzyme Q10 (Ubidecarenone) (Co Q10) 30 Mg Cap 1 CAP PO, CAP Ferrous Sulfate (Iron) 325 Mg Tab 325 MG PO Ferrous Sulfate (Kp Ferrous Sulfate) 325 Mg Tab 1 TAB PO DAILY for 30 Days, #30 TAB 3 Refills Furosemide (Lasix) 20 Mg Tab 20 MG PO DAILY, TAB Glimepiride (Amaryl) 1 Mg Tab 1 MG PO QPM, TAB Krill Oil (Krill Oil 500 mg) 1 Cap Cap Metformin Hcl (Glucophage) 500 Mg Tab 500 MG PO BID, TAB Rosuvastatin Calcium (Crestor) 10 Mg Tab 10 MG PO QPM Discontinued Medications: Losartan Potassium (Losartan Potassium) 50 Mg Tab 50 MG PO DAILY Discharge Exam Patient has feeling well with the increased dose of medication. She denies chest pain, lightheadedness, dyspnea at rest. She denies fevers/chills, headaches, abdominal pain. She has not noted changes in her lower extremity swelling. She has been tolerating diet without nausea or vomiting, and voiding and stooling appropriately. ROS is unremarkable except as noted above. Physical Exam General Appearance: WD/WN, no apparent distress Eyes: normal inspection ENT: hearing grossly normal Neck: supple Respiratory/Chest: lungs clear, normal breath sounds, no respiratory distress, no accessory muscle use Cardiovascular: + irregularly irregular Abdomen: normal bowel sounds, non tender, soft Extremities: normal inspection, no pedal edema Neurologic/Psychiatric: alert, normal mood/affect, oriented x 3 Skin: normal color, warm/dry, no rash Hospital Course 67 year old female with PMHx DM II, HTN, HLD, obesity, referred to hospital by PCP for new found a.fib Afib with RVR - Cardiology consulted - Echo showed severe biatrial enlargement, reducing her candidacy for cardioversion due to high likelihood of recurrence. - On discharge, prescribed diltiazem CD 240mg BID + digoxin 125mcg daily + anticoagulation with Eliquis 5mg BID Right sided increased pressure and Severe pulmonary HTN - Echo shows severe pulmonary hypertension with estimated PASP >60 mmHg. Associated with normal RV size and function, mild mitral regurgitation, diastolic dysfunction. Likely contributing to leg edema - Given also the history of snoring and new onset a fib, most likely culprit is sleep apnea, - rheumatoid factor and CELESTE are pending at discharge, ordered to rule out rheumatologic causes/?pul fibrosis - Follow up with cardiology, Dr Nichols, in 1-2 weeks, and he will help to organize a V/Q mismatch scan to rule out chronic thromboembolic disease - Follow up with your PCP, and consider referral for a sleep study. DMII - Continue home regimen HTN - Consistent with echo findings of mild concentric LVH, LVEF normal 55-60% - Losartan held to allow for additional rate agents while in hospital. - Continue to hold on discharge, as BP adequately controlled with diltiazem - Follow up with PCP for titration/re-addition of losartan if BP elevated HLD - Continue atorvastatin Leg edema - Continue furosemide PRN worsening swelling Full code Total Time Spent: Greater than 30 minutes This includes examination of the patient, discharge planning, medication reconciliation, and communication with other providers. Discharge Instructions Please refer to the electronic Patient Visit Report (Discharge Instructions) for additional information. Additional Copies To Rickey Maddox D.O. Resident Tracking Resident Involvement: Resident Care Provided Care Provided: Adult Hospital Medicine Reviewed: Pt Seen/Exam by Me Constitutional: denies: fever Respiratory: negative: cough, short of breath Cardiovascular: denies chest pain, denies palpitations General Appearance: no apparent distress Respiratory: lungs clear, no respiratory distress Cardiovascular: irregularly irregular Neurologic/Psychiatric: alert, oriented x 3 Skin Characteristics: warm/dry Assessment/Plan Resident Physician Supervision Note: I independently interviewed and examined the patient and verified the davis history and physical, reviewed labs and image studies, discussed the case with the resident Dr. Kelly and agree with the findings and care plan. Time spent in discharge 35 min
[2018-01-24] MEDS ORDERED: DIGOXIN 0.125 MG TAB PO SCH (16:00)
[2018-01-27 14:40] LABS: ANA SCREEN TC 249X NEGATIVE (NEGATIVE)
== END 2018-01-24 14:43 | disposition home or self-care (01) | DRG 310 ==
LOC: C.EDB 17:46 → C.2E 21:08 → ENRESERV 22:08
PROVIDERS: ADMIT Internal Medicine; ATTEND Family Medicine
DX: I48.91 Unspecified atrial fibrillation (principal); I27.20 Pulmonary hypertension, unspecified; R60.0 Localized edema; E11.9 Type 2 diabetes mellitus without complications; I10 Essential (primary) hypertension; E78.5 Hyperlipidemia, unspecified; E66.9 Obesity, unspecified; Z68.34 Body mass index [BMI] 34.0-34.9, adult; Z79.84 Long term (current) use of oral hypoglycemic drugs; Z79.899 Other long term (current) drug therapy; Z88.8 Allergy status to other drugs, medicaments and biological substances; Z83.3 Family history of diabetes mellitus

== ENCOUNTER → 2018-02-13 | Outpatient (CLI) | payer OTHER ==
[~2018-02-13] MED LIST: APIX1TAB3 PO; COEN1CAP PO; CRS10 PO; DLTCD/240 PO; FERR1TAB13 PO; FERR1TAB23 PO; FURO-85 PO; GLC/500 PO; GLIM1TAB PO; KRIL1CAP24; LNX125 PO
[2018-02-13 18:06] LABS: BLOOD UREA NITROGEN 10 mg/dl (7-18); CALCIUM 9.1 mg/dl (8.5-10.1); CARBON DIOXIDE 28 mmol/L (21-32); CREATININE 0.97 mg/dl (0.60-1.20); GLUCOSE 175 mg/dl (70-99); POTASSIUM 3.2 mmol/L (3.5-5.1); SODIUM 135 mmol/L (136-145)
== END | disposition home or self-care (01) ==
LOC: C.LABMFLN 15:42
PROVIDERS: ATTEND Physician Assistant
DX: R60.0 Localized edema (principal); I48.91 Unspecified atrial fibrillation

== ENCOUNTER → 2018-02-14 | Outpatient (CLI) | payer OTHER ==
[~2018-02-14] MED LIST changes: +OPTIRAY 320 IV PRN
--- NOTE | 2018-02-14 07:39 | DIAGNOSTIC IMAGING REPORT ---
CT ANGIOGRAM OF THE CHEST CLINICAL HISTORY: Atypical chest pain. Tachycardia. Hypoxia. COMPARISON STUDY: Chest x-ray dated 01/22/2018. TECHNIQUE: Following the IV administration of 93 cc of Optiray 320, CT angiogram of the chest was performed from the upper abdomen to the thoracic inlet utilizing the pulmonary embolus protocol. Images are reviewed in the axial, sagittal, and coronal planes. 3-D MIPS images are created and assessed. IV contrast was administered without complication. A dose lowering technique was utilized adhering to the principles of ALARA. Examination is modestly degraded by motion artifact. CT DOSE: 487.84 mGy.cm FINDINGS: Thyroid: Imaged portions of the thyroid gland are normal in size and attenuation. A small calcification is noted in the left lobe. Thoracic aorta: The thoracic aorta is normal in caliber and demonstrates bovine variant arch anatomy. No dissection is seen. Pulmonary vasculature: The pulmonary trunk is dilated, measuring 3.1 cm in diameter. This suggests pulmonary artery hypertension. There are no filling defects identified in main, lobar, or segmental pulmonary branches to suggest pulmonary embolus. Heart: The heart is enlarged and without pericardial effusion. There are scattered coronary artery calcifications. Lungs and pleural spaces: The trachea and central airways are clear. There are trace pleural effusions. There is bibasilar atelectasis. No lobar consolidation is identified. A calcified granuloma seen in the right upper lobe. Mild tree-in-bud nodularity is noted in the right lower lobe. Mediastinum: Scattered subcentimeter mediastinal lymph nodes are not pathologically enlarged by size criteria. Debbie: No hilar adenopathy is seen. There are calcified right hilar nodes. Axillae: There is no axillary lymphadenopathy. Upper abdomen: There is a large hiatal hernia, with nearly the entire stomach located in the thoracic cavity. A 2.7 cm left adrenal nodule meets CT criteria for a fat-containing adenoma. There is a 9 mm splenic artery aneurysm seen on image #14. Skeletal structures: The skeletal structures are osteopenic. Degenerative change and hyperkyphosis are noted in the thoracic spine. No lytic or blastic bony lesions are seen. IMPRESSION: 1. There is no evidence of pulmonary embolus in the main, lobar, or segmental pulmonary arteries. 2. Tree-in-bud airspace opacities are seen in the right lower lobe. This likely represents a mild infectious/inflammatory pneumonitis. Clinical correlation will be required. 3. Trace pleural effusions. 4. Cardiomegaly with evidence of pulmonary artery hypertension. 5. Large hiatal hernia. 6. There is a 9 mm splenic artery aneurysm. 7. Additional findings as above. Electronically signed by: Italo Winters M.D. 02/14/2018 7:37 AM Dictated Date/Time: 02/14/2018 7:31 AM
== END | disposition home or self-care (01) ==
LOC: C.CTS 06:20
PROVIDERS: ATTEND Physician Assistant
DX: I27.20 Pulmonary hypertension, unspecified (principal); K44.9 Diaphragmatic hernia without obstruction or gangrene; I72.8 Aneurysm of other specified arteries

== ENCOUNTER → 2018-03-04 | Outpatient (CLI) | payer OTHER ==
[~2018-03-04] MED LIST changes: -OPTIRAY 320 IV PRN
[2018-03-04 18:06] LABS: BLOOD UREA NITROGEN 10 mg/dl (7-18); CALCIUM 9.1 mg/dl (8.5-10.1); CARBON DIOXIDE 27 mmol/L (21-32); CREATININE 1.01 mg/dl (0.60-1.20); GLUCOSE 223 mg/dl (70-99); POTASSIUM 3.6 mmol/L (3.5-5.1); SODIUM 135 mmol/L (136-145)
== END | disposition home or self-care (01) ==
LOC: C.LABMFLN 15:42
PROVIDERS: ATTEND Physician Assistant
DX: I10 Essential (primary) hypertension (principal); I48.91 Unspecified atrial fibrillation

== ENCOUNTER → 2018-03-19 | Outpatient (CLI) | payer OTHER ==
[2018-03-19 18:06] LABS: BLOOD UREA NITROGEN 8 mg/dl (7-18); CALCIUM 8.9 mg/dl (8.5-10.1); CARBON DIOXIDE 30 mmol/L (21-32); CREATININE 1.01 mg/dl (0.60-1.20); GLUCOSE 284 mg/dl (70-99); POTASSIUM 3.3 mmol/L (3.5-5.1); SODIUM 137 mmol/L (136-145)
== END | disposition home or self-care (01) ==
LOC: C.LABMFLN 14:45
PROVIDERS: ATTEND Physician Assistant
DX: I48.91 Unspecified atrial fibrillation (principal); R60.0 Localized edema

== ENCOUNTER → 2018-03-31 | Outpatient (CLI) | payer OTHER ==
--- NOTE | 2018-04-01 06:18 | PAP/PSG TECHNICIAN REPORT ---
[facility] Assurance Sourcing Manager Polysomnogram Report Study name: None Report date: 04/01/2018 Study date: 03/31/2018 Referring Physician: EMILY PIÑA PA-C Name: BETSEY MUNIZ Interpreting Physician: Erwin Matamoros D.O. Date of : 1950 Assurance Sourcing Manager: Armando Villanueva RPSGT. Sex: Female Age: 67 StudyType: PSG Weight: 204 lbs Height: 67 years, Height 5' 6" BMI: 32.92 Medications: AMARYL 1 MG, CO-ENZYME Q-10 30 MG, CRESTOR 10 MG, DIGOXIN 125 MCG, DILTLIAZEM CD 240 MG, ELIQUIS 5 MG, FERROUS SULFATE 325 MG, LASIX 20 MG, METFORMIN HCL ER 500 MG, Patient History PATIENT HAS HISTORY OF PULMONARY HYPERTENSION, EDEMA, DYSLIPIDEMIA AND ATRIAL FIBRILLATION. SHE ALSO HAS HISTORY OF SNORING, FATIGUE AND DAYTIME SLEEPINESS. SHE IS HERE TODAY FOR AN EVALUATION FOR JAZMYNE. ESS = 3 RM 1 Parameters Monitored NPSG: E1-M2, E2-M1, Fp1-M2, Fp2-M1, F3-M2, F4-M2, F4-M1, C3-M2, C4-M2, C4-M1, O1-M2, O2-M2, O2-M1, T3-M2, T4-M1, P3-M2, P4-M1, CHIN1, CHIN2, HR, EKG, Legs, PFLOW, SNOR, FLOW, CFLOW, Tidal Volume, THOR, ABDO, SpO2, PLTH, CPRESS, ETCO2 Wave, ETCO2, pH Sleep Architecture Sleep Stages Time at Lights Off 9:52:25 PM STAGES Time (min.) TST (%) Time at Lights On 5:31:25 AM Wake 314.5 -- Total Recording Time (TRT) 459.50 min. N1 34.5 24 Total Sleep Period (TSP) 380.0 min. N2 91.5 63 Total Sleep Time (TST) 144.5min. N3 18.5 13 Awake Time 314.5 min. REM 0.0 0 Wake after Sleep Onset 235.5 min. Sleep Efficiency (SE) 31 % Sleep Onset Latency (BRITTANY) 79.0 min. Number of Stage 1 Shifts None Awakenings 51 Stage Changes 144 Number of REM periods N/A REM 0.0 0 REM Latency NONE min. NREM 144.5 100 Body Position Analysis Supine Right Left Side Prone Vertical Total Sleep Time (min.) 127.0 23.5 105.8 129.34 0.0 0.0 Total Sleep Time (%) 10% 16% 73% 90 0% N/A% Total Sleep Time REM (min.) 0.0 0.0 0.0 None 0.0 0.0 Total Sleep Time NREM (min.) 15.2 23.5 105.8 None 0.0 0.0 Intermittent Wake (min.) 111.8 70.2 132.5 None 0.0 0.0 Total Sleep Period (%) 26% None None None None None Arousals Myoclonus (PLM) * Events Count Index Events Count Index Spontaneous 36 15 Events Awake (PLMW) 193 36.8 Respiratory 34 17.4 Events Asleep w/ Arousal (PLMA) 3 1.2 PLM 3 1 Events Asleep w/o Arousal (PLMS) 30 12.5 Snoring 2 1 Total Asleep 33 13.7 Total 75 31 Total 226 30 Respiratory Analysis * CA OA MA CH H RERA Total Count 1 7 0 0 82 1 90 Index 0.4 2.9 0.0 0 34.0 0 37.8 Mean Duration 17.2 15.6 0.0 0.00 19.8 17.3 19.4 Longest Duration 17.2 18.2 0.0 0.00 0.0 17.3 50.5 Respiratory Event Summary Total Supine ~Supine Right Left Prone REM NREM Apneas Count 8 7 1 1 0 N/A N/A 8 Index 3.3 28 0 2.6 0.0 N/A N/A 3 Hypopneas (4% Desat) Count 82 10 72 30 42 N/A N/A 82 Index 34.0 39.6 33 76.6 23.8 N/A N/A 34.0 Apneas & All Hypopneas Count 90 17 73 31 42 N/A N/A 90 Index 37.4 67 34 79 24 N/A N/A 37.4 Respiratory Events (Rotary Shear Cutter+All Hyp+RERA) Count 90 17 74 31 43 N/A N/A 90 Index 37.8 67 34 79.1 24.4 N/A N/A 37.8 Respiratory Related Arousal Count 34 17 30 15 15 N/A N/A 42 Index 17.4 47 14 38 9 N/A N/A 17 Snoring Analysis Supine Right Left Prone REM NREM Total Snore duration 4.9 min Snores count 1 1 233 N/A N/A 235 235 Snore mean duration 1.3 Sec Snores index 4 3 132 N/A N/A 97.6 97.6 TST with snoring (%) 3.4% Desaturation Event Summary: Minimum %SpO2 Event Count Mean/Min/Max Duration(sec.) Desaturation Index % Time In Bed > 90 157 22.7 / 7.8 / 59.3 38.6 55.5 86 - 90 77 23.6 / 8.5 / 59.3 25.2 41.7 81 - 85 1 12.3 / 12.3 / 12.3 4.9 2.8 76 - 80 0 N/A 0.0 0.0 71 - 75 0 N/A 0.0 0.0 66 - 70 0 N/A 0.0 0.0 61 - 65 0 N/A 0.0 0.0 56 - 60 0 N/A 0.0 0.0 51 - 55 0 N/A 0.0 0.0 < 50 0 N/A 0.0 0.0 Total REM NREM Awake <50% 0.0 min. 0.0 min. 0.0 min. 0.0 min. 51 - 60% 0.0 min. 0.0 min. 0.0 min. 0.0 min. 61 - 70% 0.0 min. 0.0 min. 0.0 min. 0.0 min. 71 - 80% 0.1 min. 0.0 min. 0.0 min. 0.1 min. 81 - 90% 195.6 min. 0.0 min. 112.1 min. 83.5 min. 91 - 100% 244.1 min. 0.0 min. 32.4 min. 211.7 min. Average 90 0 89 91 Minimum SpO2 75 N/A 83 75 Desaturation Event Index 24.7 0.0 39.0 19.5 # Desat. Events below 89% 146 N/A 79 67 Time(%) with Saturation below 89% 23.9 0.0 18.4 5.5 Time(min.) with Saturation below 89% 105.3 0.0 81.0 24.3 Time (mins) REM (mins) NREM (mins) % of TST SpO2 Below 90% 88 N/A N88 68.9 SpO2 Below 88% 30 0 0 35 Heart Rate Analysis Min (bpm) Max (bpm) Average (bpm) Awake 44 300 77 NREM 58 95 77 REM N/A N/A N/A Overall 58 95 77 Supplemental O2 Values Minimum O2 level: None Value Start Time End Time Assurance Sourcing Manager Comments Mrs. Muniz slept in the right, left and supine positions. Irregular EKG noted at times. Leg movements noted. No bruxism noted. Snoring was noted and scored as a 3 on a scale of 1 through 5. (0=no snoring, 5=snoring loud enough to be heard through a closed door or down the freitas way) Mrs. Muniz awoke to use the restroom 3 times during the night. Mrs. Muniz stated I did not sleep as well as I do when I am in my own bed. The final report will be interpreted and signed by a sleep physician. The completed physician report will then be placed in the patient medical record. Therapy (cm H2O) 0 TIB (min.) 459.0 TST (min.) 144.5 Sleep Onset (min.) 79.0 REM Onset From Sleep (min.) NONE Sleep Efficiency % 31 Wakefulness (%) 69 Wakefulness (min.) 314.5 NREM 1 (%) 24 NREM 1 (min.) 34.5 NREM 2 (%) 63 NREM 2 (min.) 91.5 NREM 3 (%) 13 NREM 3 (min.) 18.5 REM (%) 0 REM (min.) 0.0 # Arousals 75 Arousal Index 31 # Snore 235 Snore Index 97.6 AHI 37.4 AHI Supine 67 AHI Non-Supine 34 NREM AHI 37.4 REM AHI N/A RDI 37.8 # Obstructive Apnea 7 # Central Apnea 1 # Mixed Apnea 0 # Hypopneas 82 RERAs 1 Total Respiratory Events 103 Time Below SpO2 89% (min.) 81.0 Mean NREM SpO2 (%) 89 Mean REM SpO2 (%) N/A Mean Sleep SpO2 (%) 89 Min NREM SpO2 (%) 83 Min REM SpO2 (%) N/A Position Supine (min.) 127.0 Position Non-supine (min.) 129.3 LM Index Sleep 13.7 LM Index NREM 13.7 LM Index REM N/A Mean Heart Rate (bpm) 77 Min Heart Rate (bpm) 58
--- NOTE | 2018-04-03 21:32 | POLYSOMNOGRAPH REPORT ---
CLINICAL DATA: The patient is a 67-year-old female who has a history of snoring, fatigue, and daytime sleepiness. She has a history of atrial fibrillation and pulmonary hypertension. Her [place] Sleepiness Scale score is 3. This was an in-lab overnight polysomnography. SLEEP ARCHITECTURE: The total sleep period was 380 minutes. The total sleep time was reduced to 144.5 minutes. The sleep efficiency was severely reduced to 31%. The sleep latency was prolonged to 79 minutes. Wake after sleep onset was prolonged to 235.5 minutes. Sleep consisted of stage N1 of 24%, stage N2 of 63%, stage N3 of 13%, stage REM 0%. AROUSAL DATA: The patient had a total of 75 arousals including 36 spontaneous arousals, 34 respiratory arousals, 3 PLM arousals, and 2 snoring arousals. The arousal index is 31. PLM DATA: The patient had a total of 33 periodic limb movements of sleep for a PLM index of 13.7. There were 3 arousals, associated with limb movements for a PLM arousal index of 1.2. EKG: The underlying cardiac rhythm was atrial fibrillation. The cardiac rates ranged from 58-95 beats per minute with an average heart rate of 77 beats per minute. RESPIRATORY DATA: The patient had a total of 90 respiratory events including 1 central apnea, 7 obstructive apneas, and 82 hypopneas. The longest apnea was 18.2 seconds. The mean duration of the hypopneas was 19.8 seconds. There was 1 RERA. The apnea hypopnea index is elevated at 37.4. This reflects moderately severe obstructive sleep apnea. OXIMETRY DATA: The average saturation for the night was 90%. The minimum saturation was 75%. There was a total of 105.3 minutes with saturations less than 89%. MASTER AT ARMS COMMENTS: Ms. Maddox slept in the right, left, and supine positions. Irregular EKG noted. Leg movements noted. No bruxism noted. Snoring was noted and scored as a 3 on a scale of 1 through 5. Ms. Maddox awakened to use the restroom 3 times during the night. She stated she did not sleep as well as she does in her own bed. IMPRESSION: 1. Moderately severe obstructive sleep apnea. 2. Insomnia. 3. Cardiac arrhythmia -- atrial fibrillation. COMMENTS: The patient had very poor sleep. Her sleep efficiency was severely reduced. When she did sleep, she typically had respiratory events. This was more pronounced when she was supine. The apnea-hypopnea index in the supine position was 67. Her sleep was poorly consolidated. She had no REM sleep at all. RECOMMENDATIONS: 1. It is advised that the patient be treated with nasal CPAP. This could be accomplished either by referring her to the sleep lab for a CPAP titration study or she could be treated with auto CPAP. 2. Consideration could be given to a sleep medicine consultation. 3. The patient should be advised to avoid sleeping in the supine position. 4. Weight loss is advised in light of the elevation of body mass index at 32.92.
== END | disposition home or self-care (01) ==
LOC: C.NEUR 20:00
PROVIDERS: ATTEND Physician Assistant
DX: G47.33 Obstructive sleep apnea (adult) (pediatric) (principal); I27.20 Pulmonary hypertension, unspecified; I48.91 Unspecified atrial fibrillation; G47.00 Insomnia, unspecified

== ENCOUNTER → 2018-07-04 | Outpatient (CLI) | payer OTHER ==
[2018-07-04 12:36] LABS: HEMATOCRIT 39.5 % (37-47); HEMOGLOBIN 12.4 g/dL (12.0-16.0); MEAN CELL VOLUME 87.6 fL (80-100); MEAN CORPUSCULAR HEMOGLOBIN 27.5 pg (25-34); MEAN CORPUSCULAR HGB CONC 31.4 g/dl (32-36); PLATELET COUNT 461 K/uL (130-400); RED CELL DISTRIBUTION WIDTH CV 14.1 % (11.5-14.5); RED CELL DISTRIBUTION WIDTH SD 45.5 fL (36.4-46.3); WHITE BLOOD COUNT 11.17 K/uL (4.8-10.8)
[2018-07-04 12:56] LABS: BLOOD UREA NITROGEN 10 mg/dl (7-18); CARBON DIOXIDE 26 mmol/L (21-32); CREATININE 1.03 mg/dl (0.60-1.20); GLUCOSE 231 mg/dl (70-99); POTASSIUM 3.7 mmol/L (3.5-5.1); SODIUM 137 mmol/L (136-145)
== END | disposition home or self-care (01) ==
LOC: C.LABMFLN 10:40
PROVIDERS: ATTEND Physician Assistant
DX: I48.91 Unspecified atrial fibrillation (principal)

== ENCOUNTER 2020-09-26 14:51 | Inpatient (IN) ==
[2020-09-26] MEDS ORDERED: ACETAMINOPHEN 1,000 MG/100 ML VIAL IV STA (16:32)
[2020-09-26] MEDS ORDERED: SODIUM CHLORIDE 0.9% 1000ML 500 ML IV ONE (16:32)
[2020-09-26] MEDS ORDERED: ONDANSETRON INJ 2 MG/ML 2 ML VIAL IV STA (16:32)
[2020-09-26] MEDS ORDERED: AMPICILLIN/SULBACTAM SOD 3,000 MG in 0.9 % SODIUM CHLORIDE 100 ML IV STA (16:32)
[2020-09-26] MEDS ORDERED: bisacodyL 10 MG SUPP PR STA (16:37)
--- NOTE | 2020-09-26 16:42 | Emergency Department Note ---
Impression & Plan Diffuse abdominal pain, Diverticulitis, Abdominal distension, Leukocytosis ED Provider Note NAME: BETSEY MUNIZ AGE: 69 SEX: F : 1950 ARRIVES VIA: Walk-In INFORMANT: [Patient] ED PROVIDER(S): [Italo Bryan MD] CHIEF COMPLAINT: Abdominal pain HISTORY OF PRESENT ILLNESS: The patient is a 69-year-old female who presents with diffuse abdominal pain. She states there is a colicky nature to the pain. The pain becomes severe at a 7/10 at times. She states that she has not had a bowel movement in a week. She is quite bloated. There has been nausea, no vomiting. No fever. The patient states that she was here last evening. She was discharged home. This morning, she was called back from the ED and told to report once again to our department. The over read on the CT scan was concerning for the possibility of diverticulitis versus fistula. The patient did have a white blood cell count of 15,000 last evening. She states that she tried the magnesium citrate that was suggested last evening however, it did not help her have a bowel movement, she actually felt somewhat worse. REVIEW OF SYSTEMS: See HPI for pertinent positives and negatives. A total of ten systems were reviewed and were otherwise negative. PMHx/PSHx: See Below SOCIAL HISTORY: See Below. PHYSICAL EXAM: GENERAL: Patient is in no acute distress. HEENT: No acute trauma, normocephalic atraumatic, mucous membranes moist, no nasal congestion, no scleral icterus. NECK: No stridor, no adenopathy, no meningismus, trachea is midline. LUNGS: Clear to auscultation bilaterally, no wheeze, no rhonchi, breath sounds equal. HEART: Without murmurs gallops or rubs, slightly irregular rhythm, normal rate. ABDOMEN: Soft, small reducible nontender umbilical hernia. She is significantly distended. There is tympany with percussion and she is mildly diffusely tender. Bowel sounds are heard. EXTREMITIES: No cyanosis or edema, full range of motion of all the joints with out pain or difficulty, no signs for acute trauma. NEUROLOGIC: Oriented x 3, no acute motor or sensory deficits, no focal weakness. SKIN: No rash, no jaundice, no diaphoresis. Rectal: There is no rectal mass felt. There is some stool in the rectal vault although, it is scant DIFFERENTIAL DIAGNOSIS: Appendicitis, ovarian cyst, ovarian torsion, malignancy, infections, divert iculitis, UTI, obstruction, mesenteric ischemia, aortic pathology, inflammatory bowel disease, renal colic, PUD, pancreatitis, biliary pathology, hernia, volvulus, constipation, as well as other pathologies. EMERGENCY DEPARTMENT COURSE/PROCEDURES: ECG: Indication was abdominal pain. The ECG shows atrial fibrillation with a rate of 94. There is diffuse nonspecific ST change. The QTc is 437. There are no PVCs, no ST elevation. Continuous Cardiac Monitoring: An order was placed for continuous cardiac monitoring. The monitor shows a rate of 88 with atrial fibrillation. MEDICAL DECISION MAKING: There is a moderate leukocytosis with a white count of 15,000, platelet count is mildly elevated. No anemia. No significant electrolyte abnormality or kidney failure. Digoxin level is not elevated. CT scan of the abdomen performed last evening did suggest a possible large diverticulum with surrounding inflammation consistent with diverticulitis. There was colonic distention seen. The possibility of a incomplete fistula was noted. Given the abdominal distention, given the lack of a bowel movement in 6 days, given the increasing pain and the leukocytosis, given the abnormal CT scan findings, I do think a hospital stay is warranted. I am concerned about diverticulitis, colonic mass is also a concern. Patient received IV saline, 500 cc. She was given IV Zofran, IV Unasyn and IV Tylenol. She was given a Dulcolax suppository. I did discuss her case with GI and general surgery. For now, no enema is to be administered. Patient is being hospitalized for further work-up and care. I spoke to the patient, I talked to case management, the on-call hospitalist was consulted. At this point, the true cause for all her complaints is not completely clear. Past Med/Surg History Medical History Atrial fibrillation dx 01/2018. on Eliquis. Follows w/ Dr. Harvey. DM type 2 (diabetes mellitus, type 2) NIDDM Hypertension On anticoagulant therapy Pulmonary hypertension Scoliosis Sleep apnea CPAP Surgical History History of benign breast biopsy History of cataract surgery RT History of D&C History of tooth extraction Family History Sister Colorectal cancer Other No family history of adverse response to anesthesia Social History Smoking Status: Never smoker Second Hand Exposure: No; Hx Alcohol Use: No Hx Substance Use: No Preferred Language: Malaysian Communication Ability: Effective Collector [place] Required: No Beliefs That Will Affect Care: None marital status: Current Living Situation: Spouse and Other Current Living Situation Comment: son current occupational status: employed Other Information That Helps Us Care for You: No Feels Safe at Home: Yes Safety Concerns: Feels Safe At This Time Assistive Devices: CPAP Allergies Allergies Allergy/AdvReac Type Severity Reaction Status Date / Time propoxyphene AdvReac Unknown Depression Verified 09/26/20 18:33 Home Meds Home Medications Medication Instructions Recorded Confirmed apixaban 5 mg tablet 5 mg PO BID #60 tab 08/21/19 09/26/20 ferrous sulfate 325 mg (65 mg 325 mg PO QAM #30 tab 08/21/19 09/26/20 iron) tablet metformin 500 mg tablet,extended 500 mg PO BID tab 08/21/19 09/26/20 release 24hr metoprolol succinate 100 mg 100 mg PO QAM #30 tab 08/21/19 09/26/20 tablet,extended release 24 hr rosuvastatin 10 mg tablet 10 mg PO HS #90 tab 08/21/19 09/26/20 empagliflozin 10 mg tablet 10 mg PO QAM 10/27/19 09/26/20 furosemide 40 mg tablet 40 mg PO QAM #45 tab 10/27/19 09/26/20 glimepiride 2 mg PO DAILY 09/26/20 09/26/20 potassium gluconate 595 mg PO DAILY 09/26/20 09/26/20 Previous Rx's Medication Instructions Recorded diltiazem HCl 240 mg 240 mg PO QAM #90 cap 05/27/20 capsule,extended release 24 hr digoxin 125 mcg (0.125 mg) tablet 125 mcg PO QPM #90 tab 07/12/20 Results & Data (ED) Vital Signs Vital Signs - 24 hr 09/26/20 15:09 09/26/20 16:51 09/26/20 18:00 Temperature 36.6 C Temperature Source Oral Pulse Rate 96 H Pulse Rate [Right Finger] 87 78 Respiratory Rate 18 20 20 Respiratory Effort / Characteristics Non-Labored Spontaneous Non-Labored Spontaneous Non-Labored Spontaneous Respiratory Depth Normal Normal Normal Respiratory Pattern Regular Blood Pressure 138/85 Blood Pressure [Left Arm] 154/97 H 128/66 Blood Pressure Mean 102 Blood Pressure Mean [Left Arm] 116 86 Blood Pressure Position Sitting Blood Pressure Position [Left Arm] Sitting Lying Pulse Oximetry 97 96 97 Oxygen Delivery Method Room Air Room Air Room Air Sepsis Recent Fever Within 48 Hours No Sepsis New/Unexplained Change in Mental Status No Sepsis Action Taken by Nursing No Action Required 09/26/20 19:00 Temperature Temperature Source Pulse Rate Pulse Rate [Right Finger] 81 Respiratory Rate 20 Respiratory Effort / Characteristics Respiratory Depth Normal Respiratory Pattern Blood Pressure Blood Pressure [Left Arm] 130/77 Blood Pressure Mean Blood Pressure Mean [Left Arm] 94 Blood Pressure Position Blood Pressure Position [Left Arm] Pulse Oximetry 96 Oxygen Delivery Method Room Air Sepsis Recent Fever Within 48 Hours Sepsis New/Unexplained Change in Mental Status Sepsis Action Taken by Prison Medications Current Medication List: was personally reviewed by me Laboratory Data Attestation: I reviewed the patient's lab results. Result diagrams: 09/26/20 16:50 09/26/20 16:50 Lab Results 09/26/20 09/26/20 09/26/20 Range/Units 15:14 16:50 16:50 WBC 15.41 H (4.8-10.8) K/uL RBC 5.31 (4.2-5.4) M/uL Hgb 15.9 (12.0-16.0) g/dL Hct 47.8 H (37-47) % MCV 90.0 (80-100) fL MCH 29.9 (25-34) pg MCHC 33.3 (32-36) g/dL RDW Std Deviation 45.4 (36.4-46.3) fL RDW Coeff of Ama 13.8 (11.5-14.5) % Plt Count 602 H (130-400) K/uL MPV 11.1 H (7.4-10.4) fL Immature Gran % (Auto) 0.3 % Neut % (Auto) 87.6 % Lymph % (Auto) 7.1 % [place] % (Auto) 4.9 % Eos % (Auto) 0.0 % Baso % (Auto) 0.1 % Neut # (Auto) 13.51 H (1.4-6.5) K/uL Lymph # (Auto) 1.10 L (1.2-3.4) K/uL [place] # (Auto) 0.75 H (0.11-0.59) K/uL Eos # (Auto) 0.00 (0-0.5) K/uL Baso # (Auto) 0.01 (0-0.2) K/uL Immature Gran # (Auto) 0.04 H (0.00-0.02) K/uL Sodium 136 (136-145) mmol/L Potassium 3.8 (3.5-5.1) mmol/L Chloride 99 (98-107) mmol/L Carbon Dioxide 27 (21-32) mmol/L Anion Gap 10.0 (3-11) BUN 15 (7-18) mg/dl Creatinine 1.00 (0.6-1.2) mg/dl Est Cr Clr Drug Dosing 52.8 ml/min Est GFR ( Amer) 65.6 Est GFR (Non-Af Amer) 56.6 BUN/Creatinine Ratio 14.7 (10-20) Glucose 143 H (70-99) mg/dl Lactate (0.4-2.0) mmol/L Calcium 9.7 (8.5-10.1) mg/dl Urine Color Yellow Urine Appearance Cloudy A (Clear) Urine pH 5.0 (4.5-7.5) Ur Specific [place] 1.040 H (1.000-1.030) Urine Protein Negative (Negative) Urine Glucose (UA) 3+ H (Negative) Urine Ketones 1+ H (Negative) Urine Blood Negative (Negative) Urine Nitrite Negative (Negative) Urine Bilirubin Negative (Negative) Urine Urobilinogen Negative (Negative) Ur Leukocyte Esterase Trace H (Negative) Urine WBC (Auto) >30 H (0-5) /hpf Urine RBC (Auto) 0-4 (0-4) /hpf U Hyaline Cast (Auto) 1-5 (0-5) /lpf U Epithel Cells (Auto) >30 H (0-5) /lpf Urine Bacteria (Auto) Negative (Negative) Digoxin (0.8-2.0) ng/ml COVID-19 Eval Order SARS-CoV-2, RNA, NAAT (NEGATIVE) 09/26/20 09/26/20 09/26/20 Range/Units 16:50 17:52 19:15 WBC (4.8-10.8) K/uL RBC (4.2-5.4) M/uL Hgb (12.0-16.0) g/dL Hct (37-47) % MCV (80-100) fL MCH (25-34) pg MCHC (32-36) g/dL RDW Std Deviation (36.4-46.3) fL RDW Coeff of Ama (11.5-14.5) % Plt Count (130-400) K/uL MPV (7.4-10.4) fL Immature Gran % (Auto) % Neut % (Auto) % Lymph % (Auto) % [place] % (Auto) % Eos % (Auto) % Baso % (Auto) % Neut # (Auto) (1.4-6.5) K/uL Lymph # (Auto) (1.2-3.4) K/uL [place] # (Auto) (0.11-0.59) K/uL Eos # (Auto) (0-0.5) K/uL Baso # (Auto) (0-0.2) K/uL Immature Gran # (Auto) (0.00-0.02) K/uL Sodium (136-145) mmol/L Potassium (3.5-5.1) mmol/L Chloride (98-107) mmol/L Carbon Dioxide (21-32) mmol/L Anion Gap (3-11) BUN (7-18) mg/dl Creatinine (0.6-1.2) mg/dl Est Cr Clr Drug Dosing ml/min Est GFR ( Amer) Est GFR (Non-Af Amer) BUN/Creatinine Ratio (10-20) Glucose (70-99) mg/dl Lactate 2.0 (0.4-2.0) mmol/L Calcium (8.5-10.1) mg/dl Urine Color Urine Appearance (Clear) Urine pH (4.5-7.5) Ur Specific [place] (1.000-1.030) Urine Protein (Negative) Urine Glucose (UA) (Negative) Urine Ketones (Negative) Urine Blood (Negative) Urine Nitrite (Negative) Urine Bilirubin (Negative) Urine Urobilinogen (Negative) Ur Leukocyte Esterase (Negative) Urine WBC (Auto) (0-5) /hpf Urine RBC (Auto) (0-4) /hpf U Hyaline Cast (Auto) (0-5) /lpf U Epithel Cells (Auto) (0-5) /lpf Urine Bacteria (Auto) (Negative) Digoxin 0.8 (0.8-2.0) ng/ml COVID-19 Eval [facility] SARS-CoV-2, RNA, NAAT (NEGATIVE) 09/26/20 Range/Units 19:15 WBC (4.8-10.8) K/uL RBC (4.2-5.4) M/uL Hgb (12.0-16.0) g/dL Hct (37-47) % MCV (80-100) fL MCH (25-34) pg MCHC (32-36) g/dL RDW Std Deviation (36.4-46.3) fL RDW Coeff of Ama (11.5-14.5) % Plt Count (130-400) K/uL MPV (7.4-10.4) fL Immature Gran % (Auto) % Neut % (Auto) % Lymph % (Auto) % [place] % (Auto) % Eos % (Auto) % Baso % (Auto) % Neut # (Auto) (1.4-6.5) K/uL Lymph # (Auto) (1.2-3.4) K/uL [place] # (Auto) (0.11-0.59) K/uL Eos # (Auto) (0-0.5) K/uL Baso # (Auto) (0-0.2) K/uL Immature Gran # (Auto) (0.00-0.02) K/uL Sodium (136-145) mmol/L Potassium (3.5-5.1) mmol/L Chloride (98-107) mmol/L Carbon Dioxide (21-32) mmol/L Anion Gap (3-11) BUN (7-18) mg/dl Creatinine (0.6-1.2) mg/dl Est Cr Clr Drug Dosing ml/min Est GFR ( Amer) Est GFR (Non-Af Amer) BUN/Creatinine Ratio (10-20) Glucose (70-99) mg/dl Lactate (0.4-2.0) mmol/L Calcium (8.5-10.1) mg/dl Urine Color Urine Appearance (Clear) Urine pH (4.5-7.5) Ur Specific [place] (1.000-1.030) Urine Protein (Negative) Urine Glucose (UA) (Negative) Urine Ketones (Negative) Urine Blood (Negative) Urine Nitrite (Negative) Urine Bilirubin (Negative) Urine Urobilinogen (Negative) Ur Leukocyte Esterase (Negative) Urine WBC (Auto) (0-5) /hpf Urine RBC (Auto) (0-4) /hpf U Hyaline Cast (Auto) (0-5) /lpf U Epithel Cells (Auto) (0-5) /lpf Urine Bacteria (Auto) (Negative) Digoxin (0.8-2.0) ng/ml COVID-19 Eval Order SARS-CoV-2, RNA, NAAT NEGATIVE (NEGATIVE) Administered Medications Digoxin (Digoxin 0.125 Mg Tab) 0.125 mg PO QPM ZELDA Stop: 10/26/20 20:59 Last Admin: 09/26/20 21:51 Dose: 0.125 mg Documented by: [id number] Sodium Chloride (Nss 1000ml) 1,000 mls @ 80 mls/hr IV .[id number] ZELDA Stop: 10/26/20 19:59 Last Admin: 09/26/20 21:23 Dose: 80 mls/hr Documented by: [id number] Ampicillin Sodium/Sulbactam Sodium 3,000 mg/ Sodium Chloride 108 mls @ 200 mls/hr IV Q6H ZELDA; Protocol Stop: 10/06/20 19:59 Last Infusion: 09/26/20 21:09 Dose: 0 mls/hr Documented by: [id number] Admin: 09/26/20 20:09 Dose: 200 mls/hr Documented by: [id number] Rosuvastatin Calcium (Rosuvastatin Calcium 10 Mg Tab) 10 mg PO HS ZELDA Stop: 10/26/20 20:59 Last Admin: 09/26/20 21:51 Dose: 10 mg Documented by: [id number] Discontinued Medications Bisacodyl (Bisacodyl 10 Mg Supp) 10 mg VT NOW STA Stop: 09/26/20 16:38 Last Admin: 09/26/20 17:18 Dose: 10 mg Documented by: [id number] Sodium Chloride (Nss 1000ml) 500 mls @ 999 mls/hr IV .Q31M ONE Stop: 09/26/20 17:02 Last Infusion: 09/26/20 18:08 Dose: 0 mls/hr Documented by: [id number] Admin: 09/26/20 17:18 Dose: 999 mls/hr Documented by: [id number] Ampicillin Sodium/Sulbactam Sodium 3,000 mg/ Sodium Chloride 108 mls @ 200 mls/hr IV NOW STA; Protocol Stop: 09/26/20 17:04 Last Infusion: 09/26/20 18:09 Dose: 0 mls/hr Documented by: [id number] Admin: 09/26/20 17:18 Dose: 200 mls/hr Documented by: [id number] Acetaminophen (Ofirmev) 1,000 mg in 100 mls @ 400 mls/hr IV NOW STA Stop: 09/26/20 16:46 Last Infusion: 09/26/20 17:42 Dose: 0 mls/hr Documented by: [id number] Admin: 09/26/20 17:18 Dose: 400 mls/hr Documented by: [id number] Ondansetron HCl (Ondansetron Inj 2 Mg/Ml 2 Ml Vial) 4 mg IV NOW STA Stop: 09/26/20 16:33 Last Admin: 09/26/20 17:18 Dose: 4 mg Documented by: [id number] Discharge Plan Visit Data Chief Complaint: Abdominal Pain Stated Complaint: ABD PAIN ED Provider: Italo Bryan Discharge Problem: Diffuse abdominal pain, Diverticulitis, Abdominal distension, Leukocytosis Patient Disposition: Admitted As Inpatient Condition: Fair Discharge Instructions Interventions: ED Discharge Assessment Last Done: 09/26/20 20:19 Discharge Problem: Leukocytosis Qualifiers: Leukocytosis type: unspecified Qualified Code(s): D72.829 - Elevated white blood cell count, unspecified
[2020-09-26 17:18] LABS: BUN Creatinine Ratio 14.7 (10-20); Calcium 9.7 mg/dl (8.5-10.1); Creatinine Clr Calc Pharmacy 52.8 ml/min; Est GFR (African American) 65.6; Est GFR (Non-African American) 56.6; Potassium 3.8 mmol/L (3.5-5.1)
[2020-09-26 17:22] LABS: Basophils # (auto) 0.01 K/uL (0-0.2); Basophils % (auto) 0.1 %; Hematocrit (blood only) 47.8 % (37-47); Hemoglobin 15.9 g/dL (12.0-16.0); Immature Granulocytes # (auto) 0.04 K/uL (0.00-0.02); Immature Granulocytes % (auto) 0.3 %; Lymphocytes % (auto) 7.1 %; Mean Corpuscular Hemoglobin 29.9 pg (25-34); Mean Corpuscular Hgb Conc 33.3 g/dL (32-36); Mean Platelet Volume 11.1 fL (7.4-10.4); Monocytes # (auto) 0.75 K/uL (0.11-0.59); Monocytes % (auto) 4.9 %; Neutrophils # (auto) 13.51 K/uL (1.4-6.5); Neutrophils % (auto) 87.6 %; Platelet Count 602 K/uL (130-400); RDW Coefficient of Variation 13.8 % (11.5-14.5); RDW Standard Deviation 45.4 fL (36.4-46.3); Red Blood Count 5.31 M/uL (4.2-5.4); White Blood Count 15.41 K/uL (4.8-10.8)
--- NOTE | 2020-09-26 19:03 | History & Physical Report ---
Date of Service September 26, 2020 Assessment & Plan (1) Abdominal pain: Presented twice to the ER on the day of admission for severe constipation x1 week along with abdominal distention. Failed MiraLAX, senna, and magnesium citrate at home. CT abdomen/pelvis with large hiatal hernia, severe constipation and colonic distention measuring up to 8.3 cm with significant wall thickening with pericolonic inflammation and fluid seen extending from the transverse colon to the distal descending colon likely representing stercoral colitis. There is also a large outpouching along the right sigmoid colon that is possibly a giant diverticulum with mild acute diverticulitis versus a developing fistulous tract. Abdominal pain does seem to be improved since this morning, but significant abdominal distention remains on examination and remains with severe constipation and stercoral colitis. With leukocytosis, is afebrile, no evidence of sepsis. She has a nonsurgical abdomen at this time. I discussed her case with general surgeon on-call who reviewed her CT scan and thinks that it is likely related to significant constipation. I reiterated to him that I did not think she had a surgical abdomen at this time. She has no nausea or vomiting, she is passing flatus. Lactate is normal at 2.0 -Admit to medical/surgical floor for further treatment and evaluation -Consult gastroenterology to see if needs colonoscopy for decompression -Consult general surgery in case of need for surgical intervention -Continue Unasyn which was started in the ER empirically for colitis versus diverticulitis -Serial abdominal exams-if pain worsens or she begins vomiting, would need NG tube for decompression -We will give another bisacodyl suppository in the morning -Keep n.p.o. except sips and chips and can take medications -Give gentle IV fluids with normal saline at 80 mL's per hour -Would not give anything further for constipation from above until she gets things moving from below Follow CBC, CMP, magnesium, phosphorus (2) Constipation: As above (3) Diverticulitis: Possible large diverticulum with superimposed mild acute diverticulitis as per radiology on CT scan -Continue Unasyn Draw blood cultures Follow CBC (4) Leukocytosis: Leukocytosis 15 K, could be related to stercoral colitis versus diverticulitis Also with thrombocytosis which seems to be chronic but worse than usual likely related to acute inflammatory process Follow CBC (5) On anticoagulant therapy: On apixaban at home for atrial fibrillation -Holding Eliquis at this time in case of need for procedural intervention Restart Eliquis when sure that there will be no procedures. (6) Pulmonary hypertension: Noted on previous echocardiogram Holding home furosemide in the setting of being n.p.o. (7) Atrial fibrillation, permanent: Rate controlled Holding Eliquis as above in case of need for procedural intervention Continue home p.o. metoprolol and diltiazem as well as digoxin No need for telemetry at this point (8) Sleep apnea: Continue CPAP-she does not have hers from home-ordered for here for 8 cm H2O (9) Diabetes: Blood sugars are well controlled here -Holding home Metformin, glimepiride, and Jardiance -Lantus and NovoLog ordered (10) Hypertension: Blood pressures here are controlled -Continue home metoprolol, diltiazem (11) Renal lesion: Incidentally noted on CT scan to have a 1.8 cm left renal lesion-radiology recommends a nonemergent contrast-enhanced renal protocol CT or MRI for further assessment -This can be done as an outpatient (12) Adrenal adenoma: Incidentally noted on CT scan to have a 2.7 cm left adrenal nodule which meets CT criteria for a fat-containing adenoma. Also with a 1.4 cm myelolipoma arising from the right adrenal gland Follow as an outpatient (13) DVT prophylaxis: Holding home Eliquis as above Disposition-admit to medical floor History of Present Illness Chief Complaint: Abdominal pain and distention, constipation Primary Care Provider: Rickey Maddox This patient is a 69-year-old pleasant female with a history of permanent atrial fibrillation on Eliquis, pulmonary hypertension by echo with RVSP of 60, sleep apnea on CPAP, hypertension, dyslipidemia, nonsustained ventricular tachycardia, and type 2 diabetes. Patient came to the EMD today following visit for constipation last night and re-read of CT scan today with concern for fistula versus large diverticulum of the sigmoid colon with possible associated diverticulitis. She also noted to have significant colonic distention. Patient's last BM was 1 week ago. She normally goes 3-5 days with BM, and has had constipation prior that was relieved with Senna, enemas, and Miralax. Patient did receive Magnesium Citrate last night and this morning. Patient abdomen is distended, taut, she reports no pain and is passing flatus. She has no nausea or vomiting and no change in bladder habits. She does have a mild leukocytosis at 15 (she is normally 10-12K), lactate is 2.0. GI consult and Gen Surg Consult were placed in the ER and GI suggested a bisacodyl suppository which was given with no relief/results of bowel movement. When I saw the patient, she reported that the abdominal pain she was experiencing last night was now significantly improved despite the significant distention of her abdomen. She has never had a colonoscopy in her lifetime. She denies any fevers or chills. She reported she was making plenty of urine. She will be admitted to the hospital given her severe constipation and significant colonic distention for serial abdominal exams and consultation with gastroenterology for possible colonoscopy as well as surgical consultation. Allergies Allergy/AdvReac Type Severity Reaction Status Date / Time propoxyphene AdvReac Unknown Depression Verified 09/26/20 18:33 Home Medications Medication Instructions Recorded Confirmed Type apixaban 5 mg tablet 5 mg PO BID #60 tab 08/21/19 09/26/20 History ferrous sulfate 325 mg (65 mg 325 mg PO QAM #30 tab 08/21/19 09/26/20 History iron) tablet metformin 500 mg tablet,extended 500 mg PO BID tab 08/21/19 09/26/20 History release 24hr metoprolol succinate 100 mg 100 mg PO QAM #30 tab 08/21/19 09/26/20 History tablet,extended release 24 hr rosuvastatin 10 mg tablet 10 mg PO HS #90 tab 08/21/19 09/26/20 History empagliflozin 10 mg tablet 10 mg PO QAM 10/27/19 09/26/20 History furosemide 40 mg tablet 40 mg PO QAM #45 tab 10/27/19 09/26/20 History diltiazem HCl 240 mg 240 mg PO QAM #90 cap 05/27/20 09/26/20 Rx capsule,extended release 24 hr digoxin 125 mcg (0.125 mg) tablet 125 mcg PO QPM #90 tab 07/12/20 09/26/20 Rx glimepiride 2 mg PO DAILY 09/26/20 09/26/20 History potassium gluconate 595 mg PO DAILY 09/26/20 09/26/20 History Past Med/Surg History Medical History Atrial fibrillation dx 01/2018. on Eliquis. Follows w/ Dr. Harvey. DM type 2 (diabetes mellitus, type 2) NIDDM Hypertension On anticoagulant therapy Pulmonary hypertension Scoliosis Sleep apnea CPAP Surgical History History of benign breast biopsy History of cataract surgery RT History of D&C History of tooth extraction Family History Sister Colorectal cancer Other No family history of adverse response to anesthesia Social History Smoking Status: Never smoker Second Hand Exposure: No; Hx Alcohol Use: No Hx Substance Use: No Preferred Language: Hungarian Communication Ability: Effective Sewer Connector Required: No Beliefs That Will Affect Care: None marital status: Current Living Situation: Spouse and Other Current Living Situation Comment: son current occupational status: employed Other Information That Helps Us Care for You: No Feels Safe at Home: Yes Safety Concerns: Feels Safe At This Time Assistive Devices: CPAP Review of Systems Review of Systems: All systems reviewed & are unremarkable except as noted in HPI & below Physical Exam Constitutional: WD/WN, vitals as above Eyes: PERRL, conjunctivae normal, anicteric sclerae ENMT: external ear and nose normal, oropharynx normal Neck: trachea midline, no thyromegaly Respiratory: normal respiratory effort, lungs clear to auscultation Cardiovascular: RRR, no murmur, no edema Chest (Breasts): Chest: normal inspection of chest Gastrointestinal (Abdomen): Inspection/Auscultation: + abdomen distended (But remains soft) and normal bowel sounds; + abdomen abnormal to inspection (With significant distention), no high-pitched sounds and no hyperactive bowel sounds Percussion/Palpation: abdomen nontender, no guarding, abdomen not rigid, no hepatosplenomegaly, no hernia and no abdominal mass Musculoskeletal: Extremities: extremities normal to inspection; no cyanosis and no clubbing Skin: no rashes, warm and dry Neurologic: moves all extremities and awake; no focal motor deficits Psychiatric: A+Ox3, euthymic affect Lymphatic: no lymphedema Results & Data Results & Data ([facility]) Vital Signs (Past 12 Hours) Vital Signs Temp Pulse Pulse Resp BP BP Pulse Ox 09/26/20 18:00 78 20 128/66 97 09/26/20 16:51 87 20 154/97 H 96 09/26/20 15:09 36.6 C 96 H 18 138/85 97 Laboratory Results 09/26/20 09/26/20 09/26/20 Range/Units 20:45 19:15 19:15 WBC (4.8-10.8) K/uL RBC (4.2-5.4) M/uL Hgb (12.0-16.0) g/dL Hct (37-47) % MCV (80-100) fL MCH (25-34) pg MCHC (32-36) g/dL RDW Std Deviation (36.4-46.3) fL RDW Coeff of Ama (11.5-14.5) % Plt Count (130-400) K/uL MPV (7.4-10.4) fL Immature Gran % (Auto) % Neut % (Auto) % Lymph % (Auto) % [place] % (Auto) % Eos % (Auto) % Baso % (Auto) % Neut # (Auto) (1.4-6.5) K/uL Lymph # (Auto) (1.2-3.4) K/uL [place] # (Auto) (0.11-0.59) K/uL Eos # (Auto) (0-0.5) K/uL Baso # (Auto) (0-0.2) K/uL Immature Gran # (Auto) (0.00-0.02) K/uL Sodium (136-145) mmol/L Potassium (3.5-5.1) mmol/L Chloride (98-107) mmol/L Carbon Dioxide (21-32) mmol/L Anion Gap (3-11) BUN (7-18) mg/dl Creatinine (0.6-1.2) mg/dl Est Cr Clr Drug Dosing ml/min Est GFR ( Amer) Est GFR (Non-Af Amer) BUN/Creatinine Ratio (10-20) Glucose (70-99) mg/dl POC Glucose 127 H (70-99) mg/dl Lactate (0.4-2.0) mmol/L Calcium (8.5-10.1) mg/dl Urine Color Urine Appearance (Clear) Urine pH (4.5-7.5) Ur Specific [place] (1.000-1.030) Urine Protein (Negative) Urine Glucose (UA) (Negative) Urine Ketones (Negative) Urine Blood (Negative) Urine Nitrite (Negative) Urine Bilirubin (Negative) Urine Urobilinogen (Negative) Ur Leukocyte Esterase (Negative) Urine WBC (Auto) (0-5) /hpf Urine RBC (Auto) (0-4) /hpf U Hyaline Cast (Auto) (0-5) /lpf U Epithel Cells (Auto) (0-5) /lpf Urine Bacteria (Auto) (Negative) Digoxin (0.8-2.0) ng/ml COVID-19 Eval Order Covid19 [facility] SARS-CoV-2, RNA, NAAT NEGATIVE (NEGATIVE) 09/26/20 09/26/20 09/26/20 Range/Units 17:52 16:50 16:50 WBC (4.8-10.8) K/uL RBC (4.2-5.4) M/uL Hgb (12.0-16.0) g/dL Hct (37-47) % MCV (80-100) fL MCH (25-34) pg MCHC (32-36) g/dL RDW Std Deviation (36.4-46.3) fL RDW Coeff of Ama (11.5-14.5) % Plt Count (130-400) K/uL MPV (7.4-10.4) fL Immature Gran % (Auto) % Neut % (Auto) % Lymph % (Auto) % [place] % (Auto) % Eos % (Auto) % Baso % (Auto) % Neut # (Auto) (1.4-6.5) K/uL Lymph # (Auto) (1.2-3.4) K/uL [place] # (Auto) (0.11-0.59) K/uL Eos # (Auto) (0-0.5) K/uL Baso # (Auto) (0-0.2) K/uL Immature Gran # (Auto) (0.00-0.02) K/uL Sodium 136 (136-145) mmol/L Potassium 3.8 (3.5-5.1) mmol/L Chloride 99 (98-107) mmol/L Carbon Dioxide 27 (21-32) mmol/L Anion Gap 10.0 (3-11) BUN 15 (7-18) mg/dl Creatinine 1.00 (0.6-1.2) mg/dl Est Cr Clr Drug Dosing 52.8 ml/min Est GFR ( Amer) 65.6 Est GFR (Non-Af Amer) 56.6 BUN/Creatinine Ratio 14.7 (10-20) Glucose 143 H (70-99) mg/dl POC Glucose (70-99) mg/dl Lactate 2.0 (0.4-2.0) mmol/L Calcium 9.7 (8.5-10.1) mg/dl Urine Color Urine Appearance (Clear) Urine pH (4.5-7.5) Ur Specific [place] (1.000-1.030) Urine Protein (Negative) Urine Glucose (UA) (Negative) Urine Ketones (Negative) Urine Blood (Negative) Urine Nitrite (Negative) Urine Bilirubin (Negative) Urine Urobilinogen (Negative) Ur Leukocyte Esterase (Negative) Urine WBC (Auto) (0-5) /hpf Urine RBC (Auto) (0-4) /hpf U Hyaline Cast (Auto) (0-5) /lpf U Epithel Cells (Auto) (0-5) /lpf Urine Bacteria (Auto) (Negative) Digoxin 0.8 (0.8-2.0) ng/ml COVID-19 Eval Order SARS-CoV-2, RNA, NAAT (NEGATIVE) 09/26/20 09/26/20 Range/Units 16:50 15:14 WBC 15.41 H (4.8-10.8) K/uL RBC 5.31 (4.2-5.4) M/uL Hgb 15.9 (12.0-16.0) g/dL Hct 47.8 H (37-47) % MCV 90.0 (80-100) fL MCH 29.9 (25-34) pg MCHC 33.3 (32-36) g/dL RDW Std Deviation 45.4 (36.4-46.3) fL RDW Coeff of Ama 13.8 (11.5-14.5) % Plt Count 602 H (130-400) K/uL MPV 11.1 H (7.4-10.4) fL Immature Gran % (Auto) 0.3 % Neut % (Auto) 87.6 % Lymph % (Auto) 7.1 % [place] % (Auto) 4.9 % Eos % (Auto) 0.0 % Baso % (Auto) 0.1 % Neut # (Auto) 13.51 H (1.4-6.5) K/uL Lymph # (Auto) 1.10 L (1.2-3.4) K/uL [place] # (Auto) 0.75 H (0.11-0.59) K/uL Eos # (Auto) 0.00 (0-0.5) K/uL Baso # (Auto) 0.01 (0-0.2) K/uL Immature Gran # (Auto) 0.04 H (0.00-0.02) K/uL Sodium (136-145) mmol/L Potassium (3.5-5.1) mmol/L Chloride (98-107) mmol/L Carbon Dioxide (21-32) mmol/L Anion Gap (3-11) BUN (7-18) mg/dl Creatinine (0.6-1.2) mg/dl Est Cr Clr Drug Dosing ml/min Est GFR ( Amer) Est GFR (Non-Af Amer) BUN/Creatinine Ratio (10-20) Glucose (70-99) mg/dl POC Glucose (70-99) mg/dl Lactate (0.4-2.0) mmol/L Calcium (8.5-10.1) mg/dl Urine Color Yellow Urine Appearance Cloudy A (Clear) Urine pH 5.0 (4.5-7.5) Ur Specific [place] 1.040 H (1.000-1.030) Urine Protein Negative (Negative) Urine Glucose (UA) 3+ H (Negative) Urine Ketones 1+ H (Negative) Urine Blood Negative (Negative) Urine Nitrite Negative (Negative) Urine Bilirubin Negative (Negative) Urine Urobilinogen Negative (Negative) Ur Leukocyte Esterase Trace H (Negative) Urine WBC (Auto) >30 H (0-5) /hpf Urine RBC (Auto) 0-4 (0-4) /hpf U Hyaline Cast (Auto) 1-5 (0-5) /lpf U Epithel Cells (Auto) >30 H (0-5) /lpf Urine Bacteria (Auto) Negative (Negative) Digoxin (0.8-2.0) ng/ml COVID-19 Eval Order SARS-CoV-2, RNA, NAAT (NEGATIVE) Diagnostic Findings CT SCAN OF THE ABDOMEN AND PELVIS WITHOUT IV CONTRAST CLINICAL HISTORY: Generalized abdominal pain. Distention. COMPARISON STUDY: Abdominal radiograph dated 09/26/2020. TECHNIQUE: CT scan of the abdomen and pelvis is performed from the lung bases to the proximal femora. Images are reviewed in the axial, sagittal, and coronal planes. IV contrast was not administered for this examination. Note that the examination was performed in suboptimal fashion without oral and IV contrast. A dose lowering technique was utilized adhering to the principles of ALARA. CT DOSE: 350.53 mGy.cm FINDINGS: Lung bases: The heart is normal in size and without pericardial effusion. There are small bilateral fat-containing Bochdalek hernias. The lung bases are clear otherwise clear noting mild bibasilar atelectasis. Liver: The unenhanced liver is normal in size, contour, and attenuation. There is no intrahepatic biliary ductal dilatation. Gallbladder: There are small calcified gallstones with no CT evidence of acute cholecystitis. Spleen: Normal in size and attenuation. Pancreas: The unenhanced pancreas is atrophic and grossly unremarkable. Adrenal glands: A 2.7 cm left adrenal nodule meets CT criteria for a fat- containing adenoma. 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 Kidneys: The unenhanced kidneys demonstrate mild cortical atrophy and are without hydronephrosis. There are no renal calculi identified. A 1.9 cm left renal cyst is seen on image #134. A 1.8 cm left renal lesion does not meet CT criteria for a simple cyst. This is seen on image #117. Abdominal vasculature: The abdominal aorta is normal in course and caliber noting mild atherosclerotic calcification. Stomach and bowel: There is a large hiatal hernia, with the majority of the stomach located in the thorax. There is severe constipation colonic distention measuring up to 8.3 cm. There is significant wall thickening with pericolonic inflammation and fluid seen extending from the transverse colon to the distal descending colon, likely representing stercoral colitis. There is mild to moderate colonic diverticulosis. There is a large outpouching along the right aspect of the sigmoid colon gallbladder seen on image #340. There is mild surrounding soft tissue infiltration. There is no pneumatosis intestinalis or portal venous gas. No bowel obstruction is seen. The small bowel loops are normal in caliber. The appendix is well-visualized and normal. Peritoneum: There is a small one of pericolic fluid. No intraperitoneal free air is seen. There is a large fat-containing umbilical hernia. Lymphadenopathy: None. Pelvic viscera: The bladder, uterus, and adnexa are normal as visualized. There are numerous calcified granulomas in the left gluteal soft tissues. Skeletal structures: The skeletal structures are osteopenic. There is moderate lumbosacral spondylosis. Sclerotic change is seen in the sacroiliac joints. No lytic or blastic lesions are seen. IMPRESSION: 1. Severe constipation with evidence of stercoral colitis. 2. There is mild to moderate colonic diverticulosis. 3. There is a large outpouching along the right aspect of the sigmoid colon with mild surrounding infiltration. This may represent a giant diverticulum with superimposed mild acute diverticulitis or possibly developing fistulous tract. Nonemergent follow-up with colonoscopy is recommended for further assessment. 4. There is no bowel obstruction. No intraperitoneal free air is identified. 5. A 1.8 cm left renal lesion does not meet CT criteria for simple cyst. Follow- up with a nonemergent contrast-enhanced renal protocol CT or MRI is recommended for further assessment. 6. Cholelithiasis. 7. Large hiatal hernia. 8. Additional findings as above. Code Status & VTE Plan Code Status Full code VTE Prophylaxis Plan VTE Prophylaxis will be ordered: Yes PG Care Time/CCT Total # of Minutes Spent Total Time Spent with Patient: Total time spent is greater than 50% in coordination of care (as documented) at patient's floor/unit and/or counseling patient: Coding Level of Care Code 68189 Initial Inpt Care Lvl 3 Diagnoses Abdominal pain R10.84 Abdominal location: generalized Constipation K59.00 Constipation type: unspecified constipation type Diverticulitis K57.92 Leukocytosis D72.829 Leukocytosis type: unspecified On anticoagulant therapy Z79.01 Pulmonary hypertension I27.20 Atrial fibrillation, permanent I48.21 Sleep apnea G47.30 Diabetes E11.9 Hypertension I10 Renal lesion N28.9 Adrenal adenoma D35.00 DVT prophylaxis Z29.9 (1) Abdominal pain Abdominal location: generalized Qualified Code(s): R10.84 - Generalized abdominal pain (2) Constipation Constipation type: unspecified constipation type Qualified Code(s): K59.00 - Constipation, unspecified (3) Leukocytosis Leukocytosis type: unspecified Qualified Code(s): D72.829 - Elevated white blood cell count, unspecified
[2020-09-26] MEDS: AMPICILLIN/SULBACTAM SOD 3,000 MG in 0.9 % SODIUM CHLORIDE 100 ML IV SCH (20:09)
[2020-09-26 20:44] LABS: Appearance Urine Cloudy (Clear); Bacteria Urine Automated Negative (Negative); Bilirubin Urine Negative (Negative); Blood Urine Negative (Negative); Color Urine Yellow; Epithelial Cell Urine Auto >30 /lpf (0-5); Glucose Urine UA 3+ (Negative); Ketones Urine 1+ (Negative); Leukocyte Esterase Urine Trace (Negative); Nitrite Urine Negative (Negative); Protein Urine Negative (Negative); RBC Urine Automated 0-4 /hpf (0-4); Urobilinogen Urine Negative (Negative); WBC Urine Automated >30 /hpf (0-5)
[2020-09-26] MEDS ORDERED: ONDANSETRON INJ 2 MG/ML 2 ML VIAL IV PRN (20:45)
[2020-09-26] MEDS: SODIUM CHLORIDE 0.9% 1000ML 1,000 ML IV SCH (21:23)
[2020-09-26] MEDS ORDERED: SIMETHICONE 80 MG CHEW PO PRN (21:29)
[2020-09-26] MEDS: DIGOXIN 0.125 MG TAB PO SCH (21:51)
[2020-09-26] MEDS: ROSUVASTATIN CALCIUM 10 MG TAB PO SCH (21:51)
[2020-09-27] MEDS ORDERED: GLUCOSE 10 TABS/TUBE PO PRN ×2 (00:42→01:19)
[2020-09-27] MEDS ORDERED: GLUCAGON FOR INJ 1 MG VIAL SQ PRN ×2 (00:42→01:19)
[2020-09-27] MEDS ORDERED: DEXTROSE 50% 50 ML SYRINGE IV PRN ×2 (00:42→01:19)
[2020-09-27] MEDS ORDERED: GLUCOSE 40% GEL 15 GM TUBE PO PRN ×2 (00:42→01:19)
[2020-09-27] MEDS ORDERED: CARBOHYDRATES FOR HYPOGLYCEMIA PO PRN ×2 (00:42→01:19)
[2020-09-27] MEDS ORDERED: PHARMACY GLYCEMIC MGMT CONSULT PRN (00:52)
[2020-09-27] MEDS: AMPICILLIN/SULBACTAM SOD 3,000 MG in 0.9 % SODIUM CHLORIDE 100 ML IV SCH ×4 (02:57→19:34)
[2020-09-27] MEDS: INSULIN ASPART 100 UNITS/ML 3 ML PEN SC SCH ×4 (06:15→20:59)
[2020-09-27 08:19] LABS: Basophils # (auto) 0.02 K/uL (0-0.2); Basophils % (auto) 0.1 %; Hematocrit (blood only) 44.8 % (37-47); Hemoglobin 14.5 g/dL (12.0-16.0); Immature Granulocytes # (auto) 0.05 K/uL (0.00-0.02); Immature Granulocytes % (auto) 0.3 %; Lymphocytes # (auto) 1.24 K/uL (1.2-3.4); Lymphocytes % (auto) 7.9 %; Mean Corpuscular Hemoglobin 29.6 pg (25-34); Mean Corpuscular Hgb Conc 32.4 g/dL (32-36); Mean Corpuscular Volume 91.4 fL (80-100); Monocytes # (auto) 1.06 K/uL (0.11-0.59); Monocytes % (auto) 6.7 %; Neutrophils # (auto) 13.37 K/uL (1.4-6.5); Platelet Count 521 K/uL (130-400); RDW Coefficient of Variation 13.9 % (11.5-14.5); RDW Standard Deviation 45.9 fL (36.4-46.3); White Blood Count 15.74 K/uL (4.8-10.8)
[2020-09-27 08:30] LABS: Estimated Average Glucose 166 mg/dl; Hemoglobin A1C 7.4 % (4.5-5.6)
[2020-09-27] MEDS: dilTIAZem HCL 240 MG CAPCR PO SCH (08:37)
[2020-09-27] MEDS: METOPROLOL SUCC 50MG EXT REL TAB PO SCH (08:38)
[2020-09-27] MEDS: SODIUM CHLORIDE 0.9% 1000ML 1,000 ML IV SCH ×2 (08:39→21:16)
[2020-09-27 08:46] LABS: Albumin Level 3.1 gm/dl (3.4-5.0); BUN Creatinine Ratio 13.8 (10-20); Calcium 8.9 mg/dl (8.5-10.1); Creatinine Clr Calc Pharmacy 56.6 ml/min; Est GFR (African American) 70.7; Magnesium 2.6 mg/dl (1.8-2.4); Potassium 4.4 mmol/L (3.5-5.1)
[2020-09-27 08:51] LABS: Albumin Globulin Ratio 0.9 (0.9-2); Bilirubin,Total 0.7 mg/dl (0.2-1); Globulin 3.4 gm/dl (2.5-4.0); Total Protein 6.5 gm/dl (6.4-8.2)
[2020-09-27] MEDS: bisacodyL 10 MG SUPP PR SCH (08:55)
[2020-09-27] MEDS ORDERED: INSULIN GLARGINE SOLOSTAR 100 UNITS/ML 3 ML PEN SC SCH (09:00)
--- NOTE | 2020-09-27 09:30 | Surgery Consultation ---
Date of Consultation September 27, 2020 Assessment & Plan (1) Constipation: This patient has constipation. Review of the CT with radiology does not indicate CT evidence of a mass lesion. There is evidence of colitis. She is passing flatus so there is no total obstruction. I do not feel there is any need for immediate surgical intervention. There is no evidence of peritonitis. Would recommend GI consult for recommendations. History of Present Illness Requesting Physician: Sharmin Santoro MD Attending Physician: Sharmin Santoro MD History of Present Illness I have been asked by Dr. Santoro to see this 69-year-old female who presented to the emergency room with abdominal distention and constipation. The patient states that she has not had a bowel movement since last Saturday or 8 days ago. She has tried many [id number] regimens none of which have been successful. Her abdominal distention began within about the last 2 days. Yesterday she had some crampy abdominal discomfort that was mild to moderate. She also developed nausea but had no vomiting. She has never had a colonoscopy. CT scan of the abdomen and pelvis demonstrated a large stool load especially in the distal sigmoid colon and rectum. There was some thickening of the colon wall consistent with colitis possibly stercoraceous in origin. Despite not being able to pass her bowel she has been passing flatus and in fact last night and this morning describes a large amount of flatus. She is having very little abdominal discomfort today. She has not seen any melena or hematochezia. She has not noted a change in the caliber of her stool. Allergies Allergy/AdvReac Type Severity Reaction Status Date / Time propoxyphene AdvReac Unknown Depression Verified 09/26/20 18:33 Home Medications Medication Instructions Recorded Confirmed Type apixaban 5 mg tablet 5 mg PO BID #60 tab 08/21/19 09/26/20 History ferrous sulfate 325 mg (65 mg 325 mg PO QAM #30 tab 08/21/19 09/26/20 History iron) tablet metformin 500 mg tablet,extended 500 mg PO BID tab 08/21/19 09/26/20 History release 24hr metoprolol succinate 100 mg 100 mg PO QAM #30 tab 08/21/19 09/26/20 History tablet,extended release 24 hr rosuvastatin 10 mg tablet 10 mg PO HS #90 tab 08/21/19 09/26/20 History empagliflozin 10 mg tablet 10 mg PO QAM 10/27/19 09/26/20 History furosemide 40 mg tablet 40 mg PO QAM #45 tab 10/27/19 09/26/20 History diltiazem HCl 240 mg 240 mg PO QAM #90 cap 05/27/20 09/26/20 Rx capsule,extended release 24 hr digoxin 125 mcg (0.125 mg) tablet 125 mcg PO QPM #90 tab 07/12/20 09/26/20 Rx glimepiride 2 mg PO DAILY 09/26/20 09/26/20 History potassium gluconate 595 mg PO DAILY 09/26/20 09/26/20 History Patient History Medical History (Updated 09/27/20 @ 01:08 by Sharmin Santoro MD) Adrenal adenoma Atrial fibrillation dx 01/2018. on Eliquis. Follows w/ Dr. Harvey. DM type 2 (diabetes mellitus, type 2) NIDDM Hypertension On anticoagulant therapy Pulmonary hypertension Renal lesion Scoliosis Sleep apnea CPAP Surgical History History of benign breast biopsy History of cataract surgery RT History of D&C History of tooth extraction Family History Sister Colorectal cancer Other No family history of adverse response to anesthesia Social History Smoking Status: Never smoker Second Hand Exposure: No; Hx Alcohol Use: No Hx Substance Use: No Preferred Language: Maori Communication Ability: Effective Emergency Management Coordinator Required: No Beliefs That Will Affect Care: None marital status: Current Living Situation: Spouse and Other Current Living Situation Comment: son current occupational status: employed Other Information That Helps Us Care for You: No Feels Safe at Home: Yes Safety Concerns: Feels Safe At This Time Assistive Devices: None Review of Systems Review of Systems: All systems reviewed & are unremarkable except as noted in HPI & below Physical Exam Constitutional: no acute distress Neck: trachea midline Respiratory: normal respiratory effort, lungs clear to auscultation Cardiovascular: Rate/Rhythm: regular rate and regular rhythm Gastrointestinal (Abdomen): Inspection/Auscultation: + abdomen distended and + hypoactive bowel sounds Percussion/Palpation: abdomen soft; abdomen nontender Skin: no rashes, warm and dry Lymphatic: no cervical lymphadenopathy Results & Data ([facility]) Vital Signs (Past 12 Hours) Vital Signs Temp Pulse Pulse Resp BP Pulse Ox 09/27/20 08:44 92 H 117/74 95 09/27/20 07:13 37.1 C 84 18 113/76 95 09/26/20 23:26 37.1 C 79 16 99/65 L 97 09/26/20 21:51 80 09/26/20 21:34 80 18 98 Laboratory Results 09/27/20 09/27/20 09/27/20 Range/Units 07:38 07:38 07:38 WBC 15.74 H (4.8-10.8) K/uL RBC 4.90 (4.2-5.4) M/uL Hgb 14.5 (12.0-16.0) g/dL Hct 44.8 (37-47) % MCV 91.4 (80-100) fL MCH 29.6 (25-34) pg MCHC 32.4 (32-36) g/dL RDW Std Deviation 45.9 (36.4-46.3) fL RDW Coeff of Ama 13.9 (11.5-14.5) % Plt Count 521 H (130-400) K/uL MPV 11.0 H (7.4-10.4) fL Immature Gran % (Auto) 0.3 % Neut % (Auto) 85.0 % Lymph % (Auto) 7.9 % [place] % (Auto) 6.7 % Eos % (Auto) 0.0 % Baso % (Auto) 0.1 % Neut # (Auto) 13.37 H (1.4-6.5) K/uL Lymph # (Auto) 1.24 (1.2-3.4) K/uL [place] # (Auto) 1.06 H (0.11-0.59) K/uL Eos # (Auto) 0.00 (0-0.5) K/uL Baso # (Auto) 0.02 (0-0.2) K/uL Immature Gran # (Auto) 0.05 H (0.00-0.02) K/uL Sodium 139 (136-145) mmol/L Potassium 4.4 D (3.5-5.1) mmol/L Chloride 103 (98-107) mmol/L Carbon Dioxide 28 (21-32) mmol/L Anion Gap 8.0 (3-11) BUN 13 (7-18) mg/dl Creatinine 0.94 (0.6-1.2) mg/dl Est Cr Clr Drug Dosing 56.6 ml/min Est GFR ( Amer) 70.7 Est GFR (Non-Af Amer) 61.0 BUN/Creatinine Ratio 13.8 (10-20) Glucose 121 H (70-99) mg/dl POC Glucose (70-99) mg/dl Estimat Average Glucose 166 mg/dl Hemoglobin A1c 7.4 H (4.5-5.6) % Lactate (0.4-2.0) mmol/L Calcium 8.9 (8.5-10.1) mg/dl Phosphorus 3.0 (2.5-4.9) mg/dl Magnesium 2.6 H (1.8-2.4) mg/dl Total Bilirubin 0.7 (0.2-1) mg/dl AST 7 L (15-37) U/L ALT 14 (12-78) U/L Alkaline Phosphatase 67 (45-117) U/L Total Protein 6.5 (6.4-8.2) gm/dl Albumin 3.1 L (3.4-5.0) gm/dl Globulin 3.4 (2.5-4.0) gm/dl Albumin/Globulin Ratio 0.9 (0.9-2) Urine Color Urine Appearance (Clear) Urine pH (4.5-7.5) Ur Specific [place] (1.000-1.030) Urine Protein (Negative) Urine Glucose (UA) (Negative) Urine Ketones (Negative) Urine Blood (Negative) Urine Nitrite (Negative) Urine Bilirubin (Negative) Urine Urobilinogen (Negative) Ur Leukocyte Esterase (Negative) Urine WBC (Auto) (0-5) /hpf Urine RBC (Auto) (0-4) /hpf U Hyaline Cast (Auto) (0-5) /lpf U Epithel Cells (Auto) (0-5) /lpf Urine Bacteria (Auto) (Negative) Digoxin (0.8-2.0) ng/ml COVID-19 Eval Order SARS-CoV-2, RNA, NAAT (NEGATIVE) 09/27/20 09/26/20 09/26/20 Range/Units 05:59 20:45 19:15 WBC (4.8-10.8) K/uL RBC (4.2-5.4) M/uL Hgb (12.0-16.0) g/dL Hct (37-47) % MCV (80-100) fL MCH (25-34) pg MCHC (32-36) g/dL RDW Std Deviation (36.4-46.3) fL RDW Coeff of Ama (11.5-14.5) % Plt Count (130-400) K/uL MPV (7.4-10.4) fL Immature Gran % (Auto) % Neut % (Auto) % Lymph % (Auto) % [place] % (Auto) % Eos % (Auto) % Baso % (Auto) % Neut # (Auto) (1.4-6.5) K/uL Lymph # (Auto) (1.2-3.4) K/uL [place] # (Auto) (0.11-0.59) K/uL Eos # (Auto) (0-0.5) K/uL Baso # (Auto) (0-0.2) K/uL Immature Gran # (Auto) (0.00-0.02) K/uL Sodium (136-145) mmol/L Potassium (3.5-5.1) mmol/L Chloride (98-107) mmol/L Carbon Dioxide (21-32) mmol/L Anion Gap (3-11) BUN (7-18) mg/dl Creatinine (0.6-1.2) mg/dl Est Cr Clr Drug Dosing ml/min Est GFR ( Amer) Est GFR (Non-Af Amer) BUN/Creatinine Ratio (10-20) Glucose (70-99) mg/dl POC Glucose 129 H 127 H (70-99) mg/dl Estimat Average Glucose mg/dl Hemoglobin A1c (4.5-5.6) % Lactate (0.4-2.0) mmol/L Calcium (8.5-10.1) mg/dl Phosphorus (2.5-4.9) mg/dl Magnesium (1.8-2.4) mg/dl Total Bilirubin (0.2-1) mg/dl AST (15-37) U/L ALT (12-78) U/L Alkaline Phosphatase (45-117) U/L Total Protein (6.4-8.2) gm/dl Albumin (3.4-5.0) gm/dl Globulin (2.5-4.0) gm/dl Albumin/Globulin Ratio (0.9-2) Urine Color Urine Appearance (Clear) Urine pH (4.5-7.5) Ur Specific [place] (1.000-1.030) Urine Protein (Negative) Urine Glucose (UA) (Negative) Urine Ketones (Negative) Urine Blood (Negative) Urine Nitrite (Negative) Urine Bilirubin (Negative) Urine Urobilinogen (Negative) Ur Leukocyte Esterase (Negative) Urine WBC (Auto) (0-5) /hpf Urine RBC (Auto) (0-4) /hpf U Hyaline Cast (Auto) (0-5) /lpf U Epithel Cells (Auto) (0-5) /lpf Urine Bacteria (Auto) (Negative) Digoxin (0.8-2.0) ng/ml COVID-19 Eval Order SARS-CoV-2, RNA, NAAT NEGATIVE (NEGATIVE) 09/26/20 09/26/20 09/26/20 Range/Units 19:15 17:52 16:50 WBC (4.8-10.8) K/uL RBC (4.2-5.4) M/uL Hgb (12.0-16.0) g/dL Hct (37-47) % MCV (80-100) fL MCH (25-34) pg MCHC (32-36) g/dL RDW Std Deviation (36.4-46.3) fL RDW Coeff of Ama (11.5-14.5) % Plt Count (130-400) K/uL MPV (7.4-10.4) fL Immature Gran % (Auto) % Neut % (Auto) % Lymph % (Auto) % [place] % (Auto) % Eos % (Auto) % Baso % (Auto) % Neut # (Auto) (1.4-6.5) K/uL Lymph # (Auto) (1.2-3.4) K/uL [place] # (Auto) (0.11-0.59) K/uL Eos # (Auto) (0-0.5) K/uL Baso # (Auto) (0-0.2) K/uL Immature Gran # (Auto) (0.00-0.02) K/uL Sodium (136-145) mmol/L Potassium (3.5-5.1) mmol/L Chloride (98-107) mmol/L Carbon Dioxide (21-32) mmol/L Anion Gap (3-11) BUN (7-18) mg/dl Creatinine (0.6-1.2) mg/dl Est Cr Clr Drug Dosing ml/min Est GFR ( Amer) Est GFR (Non-Af Amer) BUN/Creatinine Ratio (10-20) Glucose (70-99) mg/dl POC Glucose (70-99) mg/dl Estimat Average Glucose mg/dl Hemoglobin A1c (4.5-5.6) % Lactate 2.0 (0.4-2.0) mmol/L Calcium (8.5-10.1) mg/dl Phosphorus (2.5-4.9) mg/dl Magnesium (1.8-2.4) mg/dl Total Bilirubin (0.2-1) mg/dl AST (15-37) U/L ALT (12-78) U/L Alkaline Phosphatase (45-117) U/L Total Protein (6.4-8.2) gm/dl Albumin (3.4-5.0) gm/dl Globulin (2.5-4.0) gm/dl Albumin/Globulin Ratio (0.9-2) Urine Color Urine Appearance (Clear) Urine pH (4.5-7.5) Ur Specific [place] (1.000-1.030) Urine Protein (Negative) Urine Glucose (UA) (Negative) Urine Ketones (Negative) Urine Blood (Negative) Urine Nitrite (Negative) Urine Bilirubin (Negative) Urine Urobilinogen (Negative) Ur Leukocyte Esterase (Negative) Urine WBC (Auto) (0-5) /hpf Urine RBC (Auto) (0-4) /hpf U Hyaline Cast (Auto) (0-5) /lpf U Epithel Cells (Auto) (0-5) /lpf Urine Bacteria (Auto) (Negative) Digoxin 0.8 (0.8-2.0) ng/ml COVID-19 Eval Order Covid19 [facility] SARS-CoV-2, RNA, NAAT (NEGATIVE) 09/26/20 09/26/20 09/26/20 Range/Units 16:50 16:50 15:14 WBC 15.41 H (4.8-10.8) K/uL RBC 5.31 (4.2-5.4) M/uL Hgb 15.9 (12.0-16.0) g/dL Hct 47.8 H (37-47) % MCV 90.0 (80-100) fL MCH 29.9 (25-34) pg MCHC 33.3 (32-36) g/dL RDW Std Deviation 45.4 (36.4-46.3) fL RDW Coeff of Ama 13.8 (11.5-14.5) % Plt Count 602 H (130-400) K/uL MPV 11.1 H (7.4-10.4) fL Immature Gran % (Auto) 0.3 % Neut % (Auto) 87.6 % Lymph % (Auto) 7.1 % [place] % (Auto) 4.9 % Eos % (Auto) 0.0 % Baso % (Auto) 0.1 % Neut # (Auto) 13.51 H (1.4-6.5) K/uL Lymph # (Auto) 1.10 L (1.2-3.4) K/uL [place] # (Auto) 0.75 H (0.11-0.59) K/uL Eos # (Auto) 0.00 (0-0.5) K/uL Baso # (Auto) 0.01 (0-0.2) K/uL Immature Gran # (Auto) 0.04 H (0.00-0.02) K/uL Sodium 136 (136-145) mmol/L Potassium 3.8 (3.5-5.1) mmol/L Chloride 99 (98-107) mmol/L Carbon Dioxide 27 (21-32) mmol/L Anion Gap 10.0 (3-11) BUN 15 (7-18) mg/dl Creatinine 1.00 (0.6-1.2) mg/dl Est Cr Clr Drug Dosing 52.8 ml/min Est GFR ( Amer) 65.6 Est GFR (Non-Af Amer) 56.6 BUN/Creatinine Ratio 14.7 (10-20) Glucose 143 H (70-99) mg/dl POC Glucose (70-99) mg/dl Estimat Average Glucose mg/dl Hemoglobin A1c (4.5-5.6) % Lactate (0.4-2.0) mmol/L Calcium 9.7 (8.5-10.1) mg/dl Phosphorus (2.5-4.9) mg/dl Magnesium (1.8-2.4) mg/dl Total Bilirubin (0.2-1) mg/dl AST (15-37) U/L ALT (12-78) U/L Alkaline Phosphatase (45-117) U/L Total Protein (6.4-8.2) gm/dl Albumin (3.4-5.0) gm/dl Globulin (2.5-4.0) gm/dl Albumin/Globulin Ratio (0.9-2) Urine Color Yellow Urine Appearance Cloudy A (Clear) Urine pH 5.0 (4.5-7.5) Ur Specific [place] 1.040 H (1.000-1.030) Urine Protein Negative (Negative) Urine Glucose (UA) 3+ H (Negative) Urine Ketones 1+ H (Negative) Urine Blood Negative (Negative) Urine Nitrite Negative (Negative) Urine Bilirubin Negative (Negative) Urine Urobilinogen Negative (Negative) Ur Leukocyte Esterase Trace H (Negative) Urine WBC (Auto) >30 H (0-5) /hpf Urine RBC (Auto) 0-4 (0-4) /hpf U Hyaline Cast (Auto) 1-5 (0-5) /lpf U Epithel Cells (Auto) >30 H (0-5) /lpf Urine Bacteria (Auto) Negative (Negative) Digoxin (0.8-2.0) ng/ml COVID-19 Eval Order SARS-CoV-2, RNA, NAAT (NEGATIVE) Diagnostic Findings CT SCAN OF THE ABDOMEN AND PELVIS WITHOUT IV CONTRAST CLINICAL HISTORY: Generalized abdominal pain. Distention. COMPARISON STUDY: Abdominal radiograph dated 09/26/2020. TECHNIQUE: CT scan of the abdomen and pelvis is performed from the lung bases to the proximal femora. Images are reviewed in the axial, sagittal, and coronal planes. IV contrast was not administered for this examination. Note that the examination was performed in suboptimal fashion without oral and IV contrast. A dose lowering technique was utilized adhering to the principles of ALARA. CT DOSE: 350.53 mGy.cm FINDINGS: Lung bases: The heart is normal in size and without pericardial effusion. There are small bilateral fat-containing Bochdalek hernias. The lung bases are clear otherwise clear noting mild bibasilar atelectasis. Liver: The unenhanced liver is normal in size, contour, and attenuation. There is no intrahepatic biliary ductal dilatation. Gallbladder: There are small calcified gallstones with no CT evidence of acute cholecystitis. Spleen: Normal in size and attenuation. Pancreas: The unenhanced pancreas is atrophic and grossly unremarkable. Adrenal glands: A 2.7 cm left adrenal nodule meets CT criteria for a fat- containing adenoma. 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 Kidneys: The unenhanced kidneys demonstrate mild cortical atrophy and are without hydronephrosis. There are no renal calculi identified. A 1.9 cm left renal cyst is seen on image #134. A 1.8 cm left renal lesion does not meet CT criteria for a simple cyst. This is seen on image #117. Abdominal vasculature: The abdominal aorta is normal in course and caliber noting mild atherosclerotic calcification. Stomach and bowel: There is a large hiatal hernia, with the majority of the stomach located in the thorax. There is severe constipation colonic distention measuring up to 8.3 cm. There is significant wall thickening with pericolonic inflammation and fluid seen extending from the transverse colon to the distal descending colon, likely representing stercoral colitis. There is mild to moderate colonic diverticulosis. There is a large outpouching along the right aspect of the sigmoid colon gallbladder seen on image #340. There is mild surrounding soft tissue infiltration. There is no pneumatosis intestinalis or portal venous gas. No bowel obstruction is seen. The small bowel loops are normal in caliber. The appendix is well-visualized and normal. Peritoneum: There is a small one of pericolic fluid. No intraperitoneal free air is seen. There is a large fat-containing umbilical hernia. Lymphadenopathy: None. Pelvic viscera: The bladder, uterus, and adnexa are normal as visualized. There are numerous calcified granulomas in the left gluteal soft tissues. Skeletal structures: The skeletal structures are osteopenic. There is moderate lumbosacral spondylosis. Sclerotic change is seen in the sacroiliac joints. No lytic or blastic lesions are seen. IMPRESSION: 1. Severe constipation with evidence of stercoral colitis. 2. There is mild to moderate colonic diverticulosis. 3. There is a large outpouching along the right aspect of the sigmoid colon with mild surrounding infiltration. This may represent a giant diverticulum with superimposed mild acute diverticulitis or possibly developing fistulous tract. Nonemergent follow-up with colonoscopy is recommended for further assessment. 4. There is no bowel obstruction. No intraperitoneal free air is identified. 5. A 1.8 cm left renal lesion does not meet CT criteria for simple cyst. Follow- up with a nonemergent contrast-enhanced renal protocol CT or MRI is recommended for further assessment. 6. Cholelithiasis. 7. Large hiatal hernia. 8. Additional findings as above. (1) Constipation Constipation type: unspecified constipation type Qualified Code(s): K59.00 - Constipation, unspecified
--- NOTE | 2020-09-27 09:46 | Gastrointestinal Consultation ---
Date of Consultation September 27, 2020 Assessment & Plan (1) Constipation: (2) Leukocytosis: (3) Diverticulitis of colon: (4) Abnormal CT of the abdomen: Proceed with Dulcolax suppository this AM Recommend Miralax 136 g in 64 oz of Gatorade today, then Miralax 17 g by mouth daily thereafter. Continue IV Unasyn for questionable diverticulitis No colonoscopy at this time due to diverticulitis and colitis Plan on outpatient colonoscopy in 8 weeks History of Present Illness Reason for Consultation: Constipation, Abnormal CT scan abd/pelvis Attending Physician: Sharmin Santoro MD History of Present Illness 69 yo CF who presented to the ER last night with complaints of 2 days of abdominal distention. She states that she has not had a BM in 8 days, and is usually not constipated, and is not on any bowel regimen at home. She states that initially she was experiencing diffuse abdominal pain, 5/10 in intensity, relieved with passage of flatus, with no exacerbating factors. Upon arrival to the ER, she had an elevated WBC count, normal H/H and CT abd/pelvis showed large amount of stool retained with abdominal distention, colitis with evidence of stercoral inflammtion and questionable diverticulitis. She was subsequently admitted, and placed on IV abx. She states that overnight she passed a large amount of flatus, and felt much improved. At the time I saw her this AM, she was feeling much better. She states that she is not having any abdominal pain at this time. She is still having abdominal distention, but not nearly as bad as before. Nursing states that she is scheduled to get a dulcolax suppository this AM. Dr. Gardner from Surgery was consulted and does not feel that there are any surgical needs at this time, with which I agree. She has no further complaints and denies any fevers, chills, nausea, vomiting, diarrhea, hematemesis, melena or hematochezia. Allergies Allergy/AdvReac Type Severity Reaction Status Date / Time propoxyphene AdvReac Unknown Depression Verified 09/26/20 18:33 Home Medications Medication Instructions Recorded Confirmed Type apixaban 5 mg tablet 5 mg PO BID #60 tab 08/21/19 09/26/20 History ferrous sulfate 325 mg (65 mg 325 mg PO QAM #30 tab 08/21/19 09/26/20 History iron) tablet metformin 500 mg tablet,extended 500 mg PO BID tab 08/21/19 09/26/20 History release 24hr metoprolol succinate 100 mg 100 mg PO QAM #30 tab 08/21/19 09/26/20 History tablet,extended release 24 hr rosuvastatin 10 mg tablet 10 mg PO HS #90 tab 08/21/19 09/26/20 History empagliflozin 10 mg tablet 10 mg PO QAM 10/27/19 09/26/20 History furosemide 40 mg tablet 40 mg PO QAM #45 tab 10/27/19 09/26/20 History diltiazem HCl 240 mg 240 mg PO QAM #90 cap 05/27/20 09/26/20 Rx capsule,extended release 24 hr digoxin 125 mcg (0.125 mg) tablet 125 mcg PO QPM #90 tab 07/12/20 09/26/20 Rx glimepiride 2 mg PO DAILY 09/26/20 09/26/20 History potassium gluconate 595 mg PO DAILY 09/26/20 09/26/20 History Patient History Medical History Adrenal adenoma Atrial fibrillation dx 01/2018. on Eliquis. Follows w/ Dr. Harvey. DM type 2 (diabetes mellitus, type 2) NIDDM Hypertension On anticoagulant therapy Pulmonary hypertension Renal lesion Scoliosis Sleep apnea CPAP Surgical History History of benign breast biopsy History of cataract surgery RT History of D&C History of tooth extraction Family History Sister Colorectal cancer Other No family history of adverse response to anesthesia Social History Smoking Status: Never smoker Second Hand Exposure: No; Hx Alcohol Use: No Hx Substance Use: No Preferred Language: Mohawk Communication Ability: Effective Outsole Splicer Required: No Beliefs That Will Affect Care: None marital status: Current Living Situation: Spouse and Other Current Living Situation Comment: son current occupational status: employed Other Information That Helps Us Care for You: No Feels Safe at Home: Yes Safety Concerns: Feels Safe At This Time Assistive Devices: None Review of Systems Review of Systems: All systems reviewed & are unremarkable except as noted in Subjective Physical Exam Constitutional: + obese; no acute distress and not ill appearing Eyes: sclerae not anicteric ENMT: external ear and nose normal, oropharynx normal Neck: trachea midline, no thyromegaly Respiratory: normal respiratory effort; no respiratory distress and no labored breathing Cardiovascular: RRR, no murmur, no edema Gastrointestinal (Abdomen): Inspection/Auscultation: + abdomen distended; + abnormal bowel sounds Percussion/Palpation: abdomen soft; abdomen nontender, no guarding and abdomen not rigid Skin: no rashes, warm and dry Psychiatric: A+Ox3, euthymic affect Results & Data ([facility]) Vital Signs (Past 12 Hours) Vital Signs Temp Pulse Pulse Resp BP Pulse Ox 09/27/20 08:44 92 H 117/74 95 09/27/20 07:13 37.1 C 84 18 113/76 95 09/26/20 23:26 37.1 C 79 16 99/65 L 97 09/26/20 21:51 80 PG Care Time/CCT Total # of Minutes Spent Total Time Spent with Patient: Total time spent is greater than 50% in coordination of care (as documented) at patient's floor/unit and/or counseling patient: Coding Level of Care Code 97814 Initial Inpt Care Lvl 3 Diagnoses Constipation K59.00 Constipation type: unspecified constipation type Leukocytosis D72.829 Leukocytosis type: unspecified Diverticulitis of colon K57.[address] of the abdomen R93.5 (1) Constipation Constipation type: unspecified constipation type Qualified Code(s): K59.00 - Constipation, unspecified (2) Leukocytosis Leukocytosis type: unspecified Qualified Code(s): D72.829 - Elevated white blood cell count, unspecified
[2020-09-27] MEDS ORDERED: POLYETHYLENE (MIRALAX) 17 GM PACK PO ONE (10:00)
--- NOTE | 2020-09-27 10:07 | Pharmacy Report ---
Glycemic Control Consultation - Date of Service September 27, 2020 - Scope Scope: Glycemic Pharmacist consulted for glycemic control and to write orders per [facility] inpatient glycemic control protocol. - Objective Weight: 74.2 kg Accuchecks BSG (last 24hrs): 09/26/20 09/26/20 09/27/20 16:50 20:45 05:59 Glucose 143 H POC Glucose 127 H 129 H 09/27/20 07:38 Glucose 121 H POC Glucose Laboratory Data (last 24hrs): 09/26/20 09/27/20 16:50 07:38 Potassium 3.8 4.4 D Carbon Dioxide 27 28 Anion Gap 10.0 8.0 Creatinine 1.00 0.94 Est Cr Clr Drug Dosing 52.8 56.6 HbA1c: Hemoglobin A1c 7.4 % (4.5-5.6) H 09/27/20 07:38 - Recent Pertinent Medications Outpatient Anti-diabetic Regimen: * glimeperide 2 gm, metformin ER 500 mg BID * A1c = 7.4 % 09/27/20 The patient is currently receiving: * Correctional Insulin: Novolog Correction per scale ACHS Goal Range: Low 110 mg/dL - High 140 mg/dL Correction Factor: 35 mg/dL/unit * Prandial insulin: Per carb ratio of 1 unit per 15 grams CHO consumed * Oral Agents: Risk Factors for Insulin Resistance: * Infection: Unasyn (questionable diverticulitis) * Diet: NPO - Assessment & Plan Assessment & Plan: ASSESSMENT: * Patient is admitted for abdominal pain, questionable diverticulitis currently being treated with unasyn and is NPO * Has type II diabetes maintained on oral medications with reasonably well- controlled A1c for patient age (7.4%) * BSGs have been well controlled initially primarily in the 120s. Currently on novolog q6H with CF/CR set between weight based stress of 1 and 2. * No lantus currently ordered, fasting is within goal range. Will continue to monitor for need. PLAN FOR INPATIENT GLYCEMIC CONTROL: * Holding outpatient oral diabetes medications * Basal insulin -holding for now; may set lantus scale for PM if BSGs >180 mg/dL * Bolus insulin * NovoLog per scale ACHS or Q6hrs while NPO * Goal Range: Low 110 mg/dL - High 140 mg/dL * Correction Factor: 30 mg/dL/unit * Nutritional / Prandial insulin per carb ratio of 1 unit per 15 grams CHO consumed * Please note that the plan above was derived based on current level of insulin resistance and hospital stress. These recommendations are appropriate for inpatient admission only. Plan of care upon discharge will need to be reassessed to avoid potential outpatient hypo/hyperglycemia. Thank you.
--- NOTE | 2020-09-27 16:44 | Electrocardiogram Report ---
Test Reason : Blood Pressure : / mmHG Vent. Rate : 094 BPM Atrial Rate : 258 BPM P-R Int : 000 ms QRS Dur : 088 ms QT Int : 350 ms P-R-T Axes : 000 -20 167 degrees QTc Int : 437 ms Atrial fibrillation Nonspecific ST and T wave abnormality Abnormal ECG When compared with ECG of 21-JAN-2018 19:55, Atrial fibrillation has replaced Atrial flutter Vent. rate has decreased BY 62 BPM Confirmed by Alok Romero ([id number]) on 09/27/2020 4:44:09 PM Referred By: REFERRED SELF Confirmed By:Alok Romero
--- NOTE | 2020-09-27 20:13 | Hospitalist Progress Note ---
Date of Service September 27, 2020 Assessment & Plan (1) Constipation: severe, with associated stercoral colitis. appreciate GI and gen surg consultations with recs. continue miralax "prep". allow clear liquids tonight as desired/as tolerated. keep K and Mag wnl. ambulate. (2) Colitis: combination of sigmoid diverticulitis along with stercoral colitis. see above. continue IV unasyn to cover the possible diverticulitis. will need outpatient colonoscopy in 8 weeks. (3) Diverticulitis: Possible large diverticulum with superimposed mild acute diverticulitis in the sigmoid colon. Cont unasyn. Allow clears later today. Appreciate gen surg and GI consults. Outpatient colonoscopy in 8 weeks. (4) On anticoagulant therapy: On apixaban at home for atrial fibrillation. Holding Eliquis at this time in case of need for procedures. (5) Pulmonary hypertension: Noted on previous echocardiogram Holding home furosemide for now (6) Atrial fibrillation, permanent: Rates controlled Holding Eliquis as above in case of need for procedures Continue home metoprolol and diltiazem as well as digoxin (7) Sleep apnea: Continue CPAP 8 cm H2O (8) Diabetes: Holding home Metformin, glimepiride, and Jardiance Cont Lantus and NovoLog (9) Hypertension: controlled continue home metoprolol, diltiazem (10) Renal lesion: Incidentally noted on CT scan to have a 1.8 cm left renal lesion-radiology recommends a nonemergent contrast-enhanced renal protocol CT or MRI for further assessment Perform as outpatient (11) Adrenal adenoma: Incidentally noted on CT scan to have a 2.7 cm left adrenal nodule which meets CT criteria for a fat-containing adenoma. Also with a 1.4 cm myelolipoma arising from the right adrenal gland Follow as an outpatient (12) DVT prophylaxis: resume eliquis in am if doing well Admission and Anticipated Discharge Date Admission Date: September 26, 2020 Subjective patient still distended but finally had a hard, firm bowel movement after dulcolax suppository was given earlier today. she feels better after passing this. no abd pain despite the distension/bloating. no nausea or vomiting. Review of Systems Constitutional: no fever and no chills Respiratory: no cough and no dyspnea Cardiovascular: no chest pain Physical Exam Constitutional: well developed and well nourished; no acute distress and no altered mental status ENMT: external ear and nose normal, oropharynx normal Respiratory: normal respiratory effort, lungs clear to auscultation Cardiovascular: Rate/Rhythm: regular rate and + irregularly irregular Heart Sounds: normal S1 and normal S2; no murmur Vessels: posterior tibial pulses present and dorsalis pedis pulses present; no JVD Gastrointestinal (Abdomen): Inspection/Auscultation: + abdomen distended (Mod- severe with tympany to percussion ) and normal bowel sounds Percussion/Palpation: abdomen nontender, no guarding and no hepatosplenomegaly Psychiatric: A+Ox3, euthymic affect Results & Data Results & Data ([facility]) Vital Signs (Past 12 Hours) Vital Signs Pulse BP Pulse Ox 09/27/20 08:44 92 H 117/74 95 Laboratory Results Laboratory Results - last 24 hr 09/26/20 09/26/20 09/27/20 15:14 20:45 05:59 WBC RBC Hgb Hct MCV MCH MCHC RDW Std Deviation RDW Coeff of Ama Plt Count MPV Immature Gran % (Auto) Neut % (Auto) Lymph % (Auto) [place] % (Auto) Eos % (Auto) Baso % (Auto) Neut # (Auto) Lymph # (Auto) [place] # (Auto) Eos # (Auto) Baso # (Auto) Immature Gran # (Auto) Sodium Potassium Chloride Carbon Dioxide Anion Gap BUN Creatinine Est Cr Clr Drug Dosing Est GFR ( Amer) Est GFR (Non-Af Amer) BUN/Creatinine Ratio Glucose POC Glucose 127 H 129 H Estimat Average Glucose Hemoglobin A1c Calcium Phosphorus Magnesium Total Bilirubin AST ALT Alkaline Phosphatase Total Protein Albumin Globulin Albumin/Globulin Ratio Urine Color Yellow Urine Appearance Cloudy A Urine pH 5.0 Ur Specific [place] 1.040 H Urine Protein Negative Urine Glucose (UA) 3+ H Urine Ketones 1+ H Urine Blood Negative Urine Nitrite Negative Urine Bilirubin Negative Urine Urobilinogen Negative Ur Leukocyte Esterase Trace H Urine WBC (Auto) >30 H Urine RBC (Auto) 0-4 U Hyaline Cast (Auto) 1-5 U Epithel Cells (Auto) >30 H Urine Bacteria (Auto) Negative 09/27/20 09/27/20 09/27/20 07:38 07:38 07:38 WBC 15.74 H RBC 4.90 Hgb 14.5 Hct 44.8 MCV 91.4 MCH 29.6 MCHC 32.4 RDW Std Deviation 45.9 RDW Coeff of Ama 13.9 Plt Count 521 H MPV 11.0 H Immature Gran % (Auto) 0.3 Neut % (Auto) 85.0 Lymph % (Auto) 7.9 [place] % (Auto) 6.7 Eos % (Auto) 0.0 Baso % (Auto) 0.1 Neut # (Auto) 13.37 H Lymph # (Auto) 1.24 [place] # (Auto) 1.06 H Eos # (Auto) 0.00 Baso # (Auto) 0.02 Immature Gran # (Auto) 0.05 H Sodium 139 Potassium 4.4 D Chloride 103 Carbon Dioxide 28 Anion Gap 8.0 BUN 13 Creatinine 0.94 Est Cr Clr Drug Dosing 56.6 Est GFR ( Amer) 70.7 Est GFR (Non-Af Amer) 61.0 BUN/Creatinine Ratio 13.8 Glucose 121 H POC Glucose Estimat Average Glucose 166 Hemoglobin A1c 7.4 H Calcium 8.9 Phosphorus 3.0 Magnesium 2.6 H Total Bilirubin 0.7 AST 7 L ALT 14 Alkaline Phosphatase 67 Total Protein 6.5 Albumin 3.1 L Globulin 3.4 Albumin/Globulin Ratio 0.9 Urine Color Urine Appearance Urine pH Ur Specific [place] Urine Protein Urine Glucose (UA) Urine Ketones Urine Blood Urine Nitrite Urine Bilirubin Urine Urobilinogen Ur Leukocyte Esterase Urine WBC (Auto) Urine RBC (Auto) U Hyaline Cast (Auto) U Epithel Cells (Auto) Urine Bacteria (Auto) 09/27/20 09/27/20 12:24 17:18 WBC RBC Hgb Hct MCV MCH MCHC RDW Std Deviation RDW Coeff of Ama Plt Count MPV Immature Gran % (Auto) Neut % (Auto) Lymph % (Auto) [place] % (Auto) Eos % (Auto) Baso % (Auto) Neut # (Auto) Lymph # (Auto) [place] # (Auto) Eos # (Auto) Baso # (Auto) Immature Gran # (Auto) Sodium Potassium Chloride Carbon Dioxide Anion Gap BUN Creatinine Est Cr Clr Drug Dosing Est GFR ( Amer) Est GFR (Non-Af Amer) BUN/Creatinine Ratio Glucose POC Glucose 128 H 93 Estimat Average Glucose Hemoglobin A1c Calcium Phosphorus Magnesium Total Bilirubin AST ALT Alkaline Phosphatase Total Protein Albumin Globulin Albumin/Globulin Ratio Urine Color Urine Appearance Urine pH Ur Specific [place] Urine Protein Urine Glucose (UA) Urine Ketones Urine Blood Urine Nitrite Urine Bilirubin Urine Urobilinogen Ur Leukocyte Esterase Urine WBC (Auto) Urine RBC (Auto) U Hyaline Cast (Auto) U Epithel Cells (Auto) Urine Bacteria (Auto) PG Care Time/CCT Total # of Minutes Spent Total Time Spent with Patient: Total time spent is greater than 50% in coordination of care (as documented) at patient's floor/unit and/or counseling patient: Coding Level of Care Code 67484 Subseq Hosp Care Lvl 2 Diagnoses Constipation K59.00 Constipation type: unspecified constipation type Colitis K52.9 Diverticulitis K57.92 On anticoagulant therapy Z79.01 Pulmonary hypertension I27.20 Atrial fibrillation, permanent I48.21 Sleep apnea G47.30 Diabetes E11.9 Hypertension I10 Renal lesion N28.9 Adrenal adenoma D35.00 DVT prophylaxis Z29.9 (1) Constipation Constipation type: unspecified constipation type Qualified Code(s): K59.00 - Constipation, unspecified
[2020-09-27] MEDS: ROSUVASTATIN CALCIUM 10 MG TAB PO SCH (20:58)
[2020-09-27] MEDS: DIGOXIN 0.125 MG TAB PO SCH (20:59)
[2020-09-28] MEDS: AMPICILLIN/SULBACTAM SOD 3,000 MG in 0.9 % SODIUM CHLORIDE 100 ML IV SCH ×4 (01:45→20:22)
[2020-09-28] MEDS: SODIUM CHLORIDE 0.9% 1000ML 1,000 ML IV SCH ×2 (08:53→20:23)
[2020-09-28] MEDS: METOPROLOL SUCC 50MG EXT REL TAB PO SCH (08:56)
[2020-09-28] MEDS: dilTIAZem HCL 240 MG CAPCR PO SCH (08:57)
[2020-09-28] MEDS: INSULIN ASPART 100 UNITS/ML 3 ML PEN SC SCH ×4 (08:59→20:28)
[2020-09-28] MEDS: bisacodyL 10 MG SUPP PR SCH (09:03)
--- NOTE | 2020-09-28 09:40 | Gastroenterology Progress Note ---
Date of Service September 28, 2020 Assessment & Plan (1) Abnormal CT of the abdomen: -Ok to proceed with another Dulcolax suppository this AM -Once large dose of Miralax is complete, recommend Miralax 17 gm 1-2 times daily thereafter -Continue IV Unasyn for questionable diverticulitis -No colonoscopy at this time due to diverticulitis and colitis -Plan on outpatient colonoscopy in 8 weeks Admission and Anticipated Discharge Date Admission Date: September 26, 2020 Supervising Physician Co-Signing Physician Notes Agree with MILES Ordoñez as above Abd: Soft, NT, Distended, +BS Recommend Miralax 17 g by mouth in 8 oz glass of water twice daily Continue Unasyn as per Hospitalist team and will need 10 day course of antibiotics total Repeat CT scan with PO contrast in 1 week Outpatient colonoscopy in 8 weeks Subjective Patient is a 69 yo female with diverticulitis. She notes that she has been tolerating a liquid diet well. She reports some left sided abdominal pain. She had a bowel movement yesterday, but feels as though she needs to have another bowel movement. She denies bleeding. Overall feeling improved. Review of Systems Constitutional: no fever and no chills Respiratory: no cough and no dyspnea Cardiovascular: no chest pain Gastrointestinal: + abdominal pain and + constipation; no blood in stools Integumentary: no problem reported Physical Exam Constitutional: well developed Neck: normal visual inspection Respiratory: normal respiratory effort Cardiovascular: Extremities: no edema Gastrointestinal (Abdomen): Inspection/Auscultation: abdomen normal to inspection Percussion/Palpation: + abdomen tender and abdomen soft Musculoskeletal: Head/Neck/Chest: normocephalic Skin: no rashes Psychiatric: A+Ox3, euthymic affect Results & Data Results & Data ([facility]) Vital Signs (Past 12 Hours) Vital Signs Temp Pulse Resp BP Pulse Ox 09/28/20 07:20 36.8 C 73 16 125/73 93 09/27/20 23:35 36.7 C 83 20 141/88 H 96 PG Care Time/CCT Total # of Minutes Spent Total Time Spent with Patient: Total time spent is greater than 50% in coordination of care (as documented) at patient's floor/unit and/or counseling patient: Coding Level of Care Code 25473 Subseq Hosp Care Lvl [address] of the abdomen R93.5
--- NOTE | 2020-09-28 09:55 | Surgery Progress Note ---
Date of Service September 28, 2020 Assessment & Plan (1) Abnormal CT of the abdomen: Clinically much improved and tolerating a regular diet Bowels are moving Abdomen less distended No evidence of peritonitis No indication for surgical intervention at this time Admission and Anticipated Discharge Date Admission Date: September 26, 2020 Subjective Feels better today Denies abdominal pain Passing large amounts of flatus Had one large bowel movement yesterday and 2 small today Tolerating clear liquid diet this morning Physical Exam Gastrointestinal (Abdomen): Inspection/Auscultation: + abdomen distended (Less distended) and normal bowel sounds Percussion/Palpation: abdomen soft; abdomen nontender Results & Data ([facility]) Vital Signs (Past 12 Hours) Vital Signs Temp Pulse Resp BP Pulse Ox 09/28/20 07:20 36.8 C 73 16 125/73 93 09/27/20 23:35 36.7 C 83 20 141/88 H 96 Laboratory Results 09/28/20 09/27/20 09/27/20 Range/Units 07:59 20:38 17:18 POC Glucose 132 H 120 H 93 (70-99) mg/dl 09/27/20 Range/Units 12:24 POC Glucose 128 H (70-99) mg/dl
[2020-09-28] MEDS: DIGOXIN 0.125 MG TAB PO SCH (20:26)
[2020-09-28] MEDS: ROSUVASTATIN CALCIUM 10 MG TAB PO SCH (20:26)
--- NOTE | 2020-09-28 20:36 | Hospitalist Progress Note ---
Date of Service September 28, 2020 Assessment & Plan (1) Constipation: severe, with associated stercoral colitis. slowly improving. s/p dulcolax suppos on 2 days, and completed miralax prep (whole bottle of such). still needs to have maintenance, daily bowel movements. take miralax daily for maintenance. (2) Colitis: stercoral colitis along with diverticulitis. unasyn for latter. suppositories and miralax for former. (3) Diverticulitis: Possible large diverticulum with superimposed mild acute diverticulitis of sigmoid colon. Continue Unasyn. Outpatient colonoscopy in 8 weeks. Cont clears; advance to full liquids tomorrow. (4) On anticoagulant therapy: On apixaban at home for atrial fibrillation Holding Eliquis at this time in case of need for procedural intervention resume tomorrow if no procedures planned (5) Pulmonary hypertension: Noted on previous echocardiogram Holding home furosemide for now (6) Atrial fibrillation, permanent: Rate controlled Holding Eliquis as above in case of need for procedural intervention Continue triple AV steve agents (7) Sleep apnea: Continue CPAP 8cm water (8) Diabetes: Cont to hold home Metformin, glimepiride, and Jardiance Cont Lantus and NovoLog (9) Hypertension: continue home metoprolol, diltiazem controlled (10) Renal lesion: Incidentally noted on CT scan to have a 1.8 cm left renal lesion-radiology recommends a nonemergent contrast-enhanced renal protocol CT or MRI for further assessment -This can be done as an outpatient (11) Adrenal adenoma: Incidentally noted on CT scan to have a 2.7 cm left adrenal nodule which meets CT criteria for a fat-containing adenoma. Also with a 1.4 cm myelolipoma arising from the right adrenal gland Follow as an outpatient (12) UTI (urinary tract infection): 2nd group BP strep Unasyn will suffice plan 7 day course of IV/PO abx (13) DVT prophylaxis: Holding home Eliquis as above cont current IV fluids progressing Admission and Anticipated Discharge Date Admission Date: September 26, 2020 Subjective patient completed the full course of miralax yesterday. amazingly she had no bowel movement with this! she received another dulcolax suppository today and "had a large bowel movement" this afternoon. it was nonbloody and soft. still distended but overall feels better than previous. no abdominal pain. denies nausea/emesis. tolerating clears. Review of Systems Constitutional: no fever, no chills and no fatigue Respiratory: no cough, no dyspnea and no dyspnea on exertion Cardiovascular: no chest pain Physical Exam Constitutional: well developed and well nourished; no acute distress and no altered mental status ENMT: external ear and nose normal, oropharynx normal Respiratory: normal respiratory effort, lungs clear to auscultation Cardiovascular: RRR, no murmur, no edema Rate/Rhythm: regular rate and + irregularly irregular Heart Sounds: normal S1 and normal S2; no murmur Vessels: posterior tibial pulses present and dorsalis pedis pulses present; no JVD Gastrointestinal (Abdomen): Inspection/Auscultation: + abdomen distended (Mod- severe with tympany to percussion; same as yesterday) and normal bowel sounds Percussion/Palpation: abdomen nontender, no guarding and no hepatosplenomegaly Psychiatric: A+Ox3, euthymic affect Results & Data Results & Data ([facility]) Vital Signs (Past 12 Hours) Vital Signs Temp Pulse Pulse Resp BP Pulse Ox 09/28/20 20:26 66 09/28/20 20:22 66 09/28/20 16:00 36.6 C 65 16 128/80 96 PG Care Time/CCT Total # of Minutes Spent Total Time Spent with Patient: Total time spent is greater than 50% in coordination of care (as documented) at patient's floor/unit and/or counseling patient: Coding Level of Care Code 53884 Subseq Hosp Care Lvl 2 Diagnoses Constipation K59.00 Constipation type: unspecified constipation type Colitis K52.9 Diverticulitis K57.92 On anticoagulant therapy Z79.01 Pulmonary hypertension I27.20 Atrial fibrillation, permanent I48.21 Sleep apnea G47.30 Diabetes E11.9 Hypertension I10 Renal lesion N28.9 Adrenal adenoma D35.00 UTI (urinary tract infection) N39.0 DVT prophylaxis Z29.9 (1) Constipation Constipation type: unspecified constipation type Qualified Code(s): K59.00 - Constipation, unspecified
[2020-09-29] MEDS: AMPICILLIN/SULBACTAM SOD 3,000 MG in 0.9 % SODIUM CHLORIDE 100 ML IV SCH ×4 (02:52→20:05)
[2020-09-29 08:18] LABS: Basophils # (auto) 0.03 K/uL (0-0.2); Basophils % (auto) 0.2 %; Eosinophils # (auto) 0.09 K/uL (0-0.5); Eosinophils % (auto) 0.7 %; Hematocrit (blood only) 44.9 % (37-47); Hemoglobin 14.6 g/dL (12.0-16.0); Immature Granulocytes # (auto) 0.04 K/uL (0.00-0.02); Immature Granulocytes % (auto) 0.3 %; Lymphocytes # (auto) 1.33 K/uL (1.2-3.4); Lymphocytes % (auto) 10.3 %; Mean Corpuscular Hemoglobin 29.9 pg (25-34); Mean Corpuscular Hgb Conc 32.5 g/dL (32-36); Mean Corpuscular Volume 91.8 fL (80-100); Mean Platelet Volume 10.7 fL (7.4-10.4); Monocytes # (auto) 1.13 K/uL (0.11-0.59); Monocytes % (auto) 8.8 %; Neutrophils # (auto) 10.28 K/uL (1.4-6.5); Neutrophils % (auto) 79.7 %; Platelet Count 500 K/uL (130-400); RDW Standard Deviation 46.7 fL (36.4-46.3); Red Blood Count 4.89 M/uL (4.2-5.4)
[2020-09-29 08:47] LABS: BUN Creatinine Ratio 16.5 (10-20); Calcium 8.8 mg/dl (8.5-10.1); Creatinine Clr Calc Pharmacy 71.8 ml/min; Est GFR (African American) 94.5; Est GFR (Non-African American) 81.5; Magnesium 2.5 mg/dl (1.8-2.4)
[2020-09-29] MEDS: SODIUM CHLORIDE 0.9% 1000ML 1,000 ML IV SCH ×2 (08:57→19:11)
[2020-09-29] MEDS: METOPROLOL SUCC 50MG EXT REL TAB PO SCH (08:57)
[2020-09-29] MEDS: dilTIAZem HCL 240 MG CAPCR PO SCH (08:58)
[2020-09-29] MEDS: bisacodyL 10 MG SUPP PR SCH (08:59)
[2020-09-29] MEDS: INSULIN ASPART 100 UNITS/ML 3 ML PEN SC SCH ×4 (09:01→22:31)
--- NOTE | 2020-09-29 13:21 | XRay Report ---
CHEST AND ABDOMEN 2 VIEWS HISTORY: ongoing constipation; ??ileus COMPARISON: Abdomen and pelvis CT 09/26/2020. FINDINGS: No pneumothorax. Small bilateral pleural effusions are the heart remains enlarged. There is again noted a large hiatus hernia. No pneumoperitoneum. No pneumatosis. Distended colon containing a large amount of stool. There are associated air-fluid levels within the distended colon. The colon m easures up to 10.6 cm in diameter. This has progressed. Left lower quadrant calcifications are demons trated to be gluteal on the prior CT examination. IMPRESSION: 1. Severe colonic distention which has progressed to the level of the distal sigmoid colon with multi ple air-fluid levels within the colon. Finds are highly suspicious for a small bowel obstruction with the transition point at the distal sigmoid colon. GI or surgical consultation recommended for decomp ression. 2. Small bilateral pleural effusions. ACT 112: Negative or not required by law. Electronically signed by: Kj Cobb M.D. 09/29/2020 1:19 PM
--- NOTE | 2020-09-29 13:31 | Hospitalist Progress Note ---
Date of Service September 29, 2020 Assessment & Plan (1) Colonic obstruction: constipation, stercoral colitis, and ?diverticulitis now evolving into colonic obstruction. CT abd/pelvis showing such. Dr Mejia took patient to endo lab for urgent colonoscopy. MARKED stool in the rectum and sigmoid with large sigmoid diverticulum found. The diverticulum is impacted with stool causing stricture. Scope could not be passed further. Stool removed. Plan - NPO except golytely prep. IVF. repeat colonoscopy in am by Dr Mejia. (2) Constipation: severe, with associated stercoral colitis. see above. (3) Colitis: stercoral colitis along with diverticulitis. unasyn for latter. see above. (4) Diverticulitis: Large diverticulum with superimposed mild acute diverticulitis of sigmoid colon confirmed on c-scope and CT today. Continue Unasyn. see above. (5) On anticoagulant therapy: On apixaban at home for atrial fibrillation Holding Eliquis at this time. (6) Pulmonary hypertension: Noted on previous echocardiogram Holding home furosemide for now (7) Atrial fibrillation, permanent: Rates controlled Holding Eliquis Continue triple AV steve agents (8) Sleep apnea: Continue CPAP 8cm water (9) Diabetes: Cont to hold home Metformin, glimepiride, and Jardiance Cont Lantus and NovoLog Controlled (10) Hypertension: continue home metoprolol, diltiazem controlled (11) Renal lesion: Incidentally noted on CT scan to have a 1.8 cm left renal lesion-radiology recommends a nonemergent contrast-enhanced renal protocol CT or MRI for further assessment Perform as outpatient (12) Adrenal adenoma: Incidentally noted on CT scan to have a 2.7 cm left adrenal nodule which meets CT criteria for a fat-containing adenoma. Also with a 1.4 cm myelolipoma arising from the right adrenal gland Follow as an outpatient (13) UTI (urinary tract infection): 2nd group BP strep Unasyn will suffice plan 7 day course of IV/PO abx (14) Hemorrhoids: seen on c-scope today - no issues non-bleeding (15) DVT prophylaxis: Holding home Eliquis as above cont current IV fluids updated pt's this evening questions answered Admission and Anticipated Discharge Date Admission Date: September 26, 2020 Subjective saw patient after she had her abd xrays. patient reports large passage of stool/flatus this am BEFORE the x-rays and despite such x-rays show severe colonic dilatation. she continues with distension but no nausea/emesis. no dyspnea. was tolerating clears still. Review of Systems Constitutional: no fever Respiratory: no cough, no dyspnea and no dyspnea on exertion Cardiovascular: no chest pain Gastrointestinal: + bloating and + constipation; no abdominal pain, no nausea, no vomiting and no blood in stools Physical Exam Constitutional: well developed and well nourished; no acute distress and no altered mental status ENMT: external ear and nose normal, oropharynx normal Respiratory: normal respiratory effort, lungs clear to auscultation Cardiovascular: RRR, no murmur, no edema Rate/Rhythm: regular rate and + irregularly irregular Heart Sounds: normal S1 and normal S2; no murmur Vessels: posterior tibial pulses present and dorsalis pedis pulses present; no JVD Gastrointestinal (Abdomen): Inspection/Auscultation: + abdomen distended (severe w/ ongoing tympany to percussion; worse today ) and normal bowel sounds Percussion/Palpation: abdomen nontender, no guarding and no hepatosplenomegaly Psychiatric: A+Ox3, euthymic affect Results & Data Results & Data ([facility]) Vital Signs (Past 12 Hours) Vital Signs Temp Pulse Resp BP Pulse Ox 09/29/20 07:39 36.4 C L 73 16 137/96 97 Laboratory Results Laboratory Results - last 24 hr 09/28/20 09/28/20 09/29/20 17:23 20:28 07:50 WBC 12.90 H RBC 4.89 Hgb 14.6 Hct 44.9 MCV 91.8 MCH 29.9 MCHC 32.5 RDW Std Deviation 46.7 H RDW Coeff of Ama 14.0 Plt Count 500 H MPV 10.7 H Immature Gran % (Auto) 0.3 Neut % (Auto) 79.7 Lymph % (Auto) 10.3 [place] % (Auto) 8.8 Eos % (Auto) 0.7 Baso % (Auto) 0.2 Neut # (Auto) 10.28 H Lymph # (Auto) 1.33 [place] # (Auto) 1.13 H Eos # (Auto) 0.09 Baso # (Auto) 0.03 Immature Gran # (Auto) 0.04 H Sodium Potassium Chloride Carbon Dioxide Anion Gap BUN Creatinine Est Cr Clr Drug Dosing Est GFR ( Amer) Est GFR (Non-Af Amer) BUN/Creatinine Ratio Glucose POC Glucose 105 H 135 H Calcium Magnesium 09/29/20 09/29/20 09/29/20 07:50 08:36 12:06 WBC RBC Hgb Hct MCV MCH MCHC RDW Std Deviation RDW Coeff of Ama Plt Count MPV Immature Gran % (Auto) Neut % (Auto) Lymph % (Auto) [place] % (Auto) Eos % (Auto) Baso % (Auto) Neut # (Auto) Lymph # (Auto) [place] # (Auto) Eos # (Auto) Baso # (Auto) Immature Gran # (Auto) Sodium 138 Potassium 4.0 Chloride 107 Carbon Dioxide 23 Anion Gap 8.0 BUN 12 Creatinine 0.74 Est Cr Clr Drug Dosing 71.8 Est GFR ( Amer) 94.5 Est GFR (Non-Af Amer) 81.5 BUN/Creatinine Ratio 16.5 Glucose 127 H POC Glucose 117 H 118 H Calcium 8.8 Magnesium 2.5 H xrays of abdomen - concerning for colonic obstruction marked colonic dilatation up to 10cm in diameter PG Care Time/CCT Total # of Minutes Spent Total Time Spent with Patient: Total time spent is greater than 50% in coordination of care (as documented) at patient's floor/unit and/or counseling patient: Coding Level of Care Code 16391 Subseq Hosp Care Lvl 3 Diagnoses Colonic obstruction K56.609 Constipation K59.00 Constipation type: unspecified constipation type Colitis K52.9 Diverticulitis K57.92 On anticoagulant therapy Z79.01 Pulmonary hypertension I27.20 Atrial fibrillation, permanent I48.21 Sleep apnea G47.30 Diabetes E11.9 Hypertension I10 Renal lesion N28.9 Adrenal adenoma D35.00 UTI (urinary tract infection) N39.0 Hemorrhoids K64.9 DVT prophylaxis Z29.9 (1) Constipation Constipation type: unspecified constipation type Qualified Code(s): K59.00 - Constipation, unspecified
--- NOTE | 2020-09-29 13:56 | Pharmacy Report ---
Pharmacy Glycemic Short Note 2 - Date of Service September 29, 2020 - Glycemic Short BSG Results (Last 24 hours): 09/28/20 09/28/20 09/29/20 17:23 20:28 07:50 Glucose 127 H POC Glucose 105 H 135 H 09/29/20 09/29/20 08:36 12:06 Glucose POC Glucose 117 H 118 H OUTPATIENT ANTIDIABETIC REGIMEN: * glimeperide 2 mg, metformin ER 500 mg BID ASSESSMENT: 09/29 * Patient received 5 units of prandial insulin yesterday- BSGs ranged from 105- 135 mg/dL * Patient is well controlled with sliding scale only and will continue current parameters. * will consider signing off, however will continue to follow for today as patient's diet has been changing 09/27 * Patient is admitted for abdominal pain, questionable diverticulitis currently being treated with unasyn and is NPO * Has type II diabetes maintained on oral medications with reasonably well- controlled A1c for patient age (7.4%) * BSGs have been well controlled initially primarily in the 120s. Currently on novolog q6H with CF/CR set between weight based stress of 1 and 2. * No lantus currently ordered, fasting is within goal range. Will continue to monitor for need. PLAN FOR INPATIENT GLYCEMIC CONTROL: * Hold outpatient oral diabetes medications * Basal insulin-hold * Bolus insulin * NovoLog per scale ACHS or Q6hrs while NPO * Goal Range: Low 110 mg/dL - High 140 mg/dL * Correction Factor: 30 mg/dL/unit * Nutritional / Prandial insulin per carb ratio of 1 unit per 15 grams CHO consumed PLAN FOR DISCHARGE: * Patient's A1c 7.4% may be at goal given patient age and BSGs well controlled inpatient. Patient can likely resume her outpatient regimen if no issues identified.
--- NOTE | 2020-09-29 14:37 | CT Scan Report ---
CT SCAN OF THE ABDOMEN AND PELVIS WITHOUT IV CONTRAST CLINICAL HISTORY: Generalized abdominal pain. Constipation. COMPARISON STUDY: Abdominal CT dated 09/26/2020. Abdominal radiographs dated 09/29/2020. TECHNIQUE: CT scan of the abdomen and pelvis is performed from the lung bases to the proximal femora. Images are reviewed in the axial, sagittal, and coronal planes. IV contrast was not administered for this examination. Note that the examination was performed in suboptimal fashion without oral and IV contrast. A dose lowering technique was utilized adhering to the principles of ALARA. CT DOSE: 545.56 mGy.cm FINDINGS: Lung bases: The heart is normal in size and without pericardial effusion. There are small bilateral f at-containing Bochdalek hernias. There are small pleural effusions with associated atelectasis. These are new from previous. Liver: The unenhanced liver is normal in size, contour, and attenuation. There is no intrahepatic patti iary ductal dilatation. Gallbladder: There are small calcified gallstones with no CT evidence of acute cholecystitis. Spleen: Normal in size and attenuation. Pancreas: The unenhanced pancreas is atrophic and grossly unremarkable. Adrenal glands: A 2.7 cm left adrenal nodule meets CT criteria for a fat-containing adenoma. 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 Kidneys: The unenhanced kidneys demonstrate mild cortical atrophy and are without hydronephrosis. The re are no renal calculi identified. A 1.9 cm left renal cyst is seen on image #134. A 1.8 cm left yaya al lesion does not meet CT criteria for a simple cyst. This is seen on image #125. Abdominal vasculature: The abdominal aorta is normal in course and caliber noting mild atheroscleroti c calcification. Stomach and bowel: There is a large hiatal hernia, with the majority of the stomach located in the th orax. There is severe constipation with increasing colonic distention as compared to 09/26/2020. The cecum now measures up to 9.5 cm in diameter. There is colonic wall thickening with associated monserrat lonic inflammation and fluid seen throughout the colon. This likely represents stercoral colitis. The re is mild to moderate colonic diverticulosis. There is a large outpouching along the right aspect of the sigmoid colon above the bladder seen on image #349 with surrounding soft tissue infiltration. Th ere is no pneumatosis intestinalis or portal venous gas. The small bowel loops are normal in caliber. The appendix is well-visualized and normal. Peritoneum: A small volume of abdominopelvic ascites is new from previous. No intraperitoneal free ai r is seen. There is a large fat-containing umbilical hernia. Lymphadenopathy: None. Pelvic viscera: The bladder, uterus, and adnexa are normal as visualized. There are numerous calcifie d granulomas in the left gluteal soft tissues. Skeletal structures: The skeletal structures are osteopenic. There is moderate lumbosacral spondylosi s. Sclerotic change is seen in the sacroiliac joints. No lytic or blastic lesions are seen. IMPRESSION: 1. Severe constipation with evidence of stercoral colitis. This appears worsened as compared to 09/26 2. There is increasing colonic distention as compared to previous, likely representing distal colonic obstruction. This may be related to impacted stool within the sigmoid region. Stricture or mass lesi on is not excluded. Follow-up with colonoscopy is recommended for further assessment. 3. Again seen is a large outpouching along the right aspect of the sigmoid colon with mild surroundin g infiltration. This may represent a giant diverticulum with superimposed diverticulitis or possibly developing fistulous tract. This should also be assessed by colonoscopy. 4. The small bowel loops are normal in caliber. No intraperitoneal free air is identified. 5. A small volume of abdominopelvic ascites is new from previous, as are small pleural effusions. 6. A 1.8 cm left renal lesion does not meet CT criteria for simple cyst. Follow-up with a nonemergent contrast-enhanced renal protocol CT or MRI is recommended for further assessment. 7. Cholelithiasis. 8. Large hiatal hernia. 9. Additional findings as above. ACT 112: Negative or not required by law. Electronically signed by: Italo Winters M.D. 09/29/2020 2:35 PM
--- NOTE | 2020-09-29 14:48 | Medical Student Progress Note ---
Date of Service September 29, 2020 Assessment & Plan (1) Sleep apnea: Doing well. continue cpap at night (2) Hypertension: has been fairly normotensive during hospital stay continue diltiazem and metoprolol (3) Atrial fibrillation, permanent: rate controlled. Continue to hold eliquis in case of procedure continue metoprolol and diltiezam Admission and Anticipated Discharge Date Admission Date: September 26, 2020 Subjective Mrs Mc says she is doing well. Passing a lot of gas this morning and one BM. She continues to pass gas but no further BM. She finished a bottel of Miralx yesterday. None today. Abd still destneded. No abd pain, n/v, fever, night seats, chills. Tolerating clear liquid diet. Review of Systems Constitutional: no fever, no chills, no sweats and no fatigue Respiratory: no cough, no chest congestion, no dyspnea and no dyspnea on exertion Cardiovascular: no chest pain, no chest pain at rest, no chest pain with activity, no radiating jaw, neck or arm pain, no dyspnea at rest, no dyspnea on exertion, no orthopnea, no paroxysmal nocturnal dyspnea, no palpitations, no li ghtheadedness, no syncope, no edema and no calf pain Gastrointestinal: + bloating and + constipation; no abdominal pain, no nausea, no vomiting, no hematemesis, no cramping and no blood in stools Psychiatric: no behavioral changes, no depression, no anhedonia and no abnormal sleep pattern Physical Exam Constitutional: well developed and well nourished; no acute distress and not ill appearing Respiratory: normal respiratory effort; no respiratory distress, no labored breathing and no cough Auscultation: lungs clear to auscultation bilaterally; no crackles, no rhonchi and no wheezes Cardiovascular: Rate/Rhythm: regular rate and + irregularly irregular Vessels: no JVD Extremities: no calf tenderness, no pedal edema and no edema Gastrointestinal (Abdomen): Inspection/Auscultation: + abdomen distended and + hyperactive bowel sounds Percussion/Palpation: abdomen soft and + tympanic to percussion; abdomen nontender and no guarding Psychiatric: Orientation: alert and oriented x 3 Apperance: appropriately dressed Eye Contact: good eye contact Motor Behavior: steady gait and station Speech: normal rate/rhythm/volume of speech Affect: euthymic affect Results & Data ([facility]) Vital Signs (Past 12 Hours) Vital Signs Temp Pulse Resp BP Pulse Ox 09/29/20 07:39 36.4 C L 73 16 137/96 97
--- NOTE | 2020-09-29 15:15 | Gastroenterology Progress Note ---
Date of Service September 29, 2020 Assessment & Plan Admission and Anticipated Discharge Date Admission Date: September 26, 2020 Supervising Physician Co-Signing Physician Notes CT abd/pelvis with worsening abdominal distention Proceed with colonoscopy now Subjective She continues to complain of abdominal distention. Denies abdominal pain. Still passing gas, but no further BM's. She has tolerated clear liquids. I spoke with Dr. Cody today regarding abnormal X-ray. No further complaints. Review of Systems Review of Systems: All systems reviewed & are unremarkable except as noted in Subjective Physical Exam Constitutional: no acute distress and not ill appearing Gastrointestinal (Abdomen): Inspection/Auscultation: + abdomen distended Percussion/Palpation: abdomen soft; abdomen nontender, no guarding and abdomen not rigid Psychiatric: A+Ox3, euthymic affect Results & Data Results & Data ([facility]) Vital Signs (Past 12 Hours) Vital Signs Temp Pulse Resp BP Pulse Ox 09/29/20 07:39 36.4 C L 73 16 137/96 97 PG Care Time/CCT Total # of Minutes Spent Total Time Spent with Patient: Total time spent is greater than 50% in coordination of care (as documented) at patient's floor/unit and/or counseling patient: Coding Level of Care Code None
[2020-09-29] MEDS ORDERED: MINERAL OIL 30 ML UDC ONE (15:21)
[2020-09-29] MEDS ORDERED: LIDOCAINE HCL 2% 2 ML VIAL/AMP(20MG/ML) INFIL ONE (15:27)
[2020-09-29] MEDS ORDERED: PROPOFOL IV EMULSION 10 MG/ML 20 ML VIAL IV ONE ×3 (15:27→16:38)
--- NOTE | 2020-09-29 15:29 | Anesthesiology Consultation ---
Date of Service September 29, 2020 Assessment & Plan ASA ASA3 Proposed Anesthesia Anesthesia Type: MAC Risk / Benefits Reviewed With: PT / POA / Parent / Guardian, Accepts Plan and Informed Consent Obtained History Surgery Operation Date: 09/29/20 16:45 Proposed Procedures p Colonoscopy Dr. Roberto Mejia, DO Height/Weight Height: 5 ft 6 in Weight: 74.2 kg Allergies Allergy/AdvReac Type Severity Reaction Status Date / Time propoxyphene AdvReac Unknown Depression Verified 09/26/20 18:33 Medications Home Medications Medication Instructions Recorded Confirmed Last Taken apixaban 5 mg tablet 5 mg PO BID #60 tab 08/21/19 09/26/20 04/25/20 ferrous sulfate 325 mg (65 mg 325 mg PO QAM #30 tab 08/21/19 09/26/20 04/25/20 iron) tablet metformin 500 mg tablet,extended 500 mg PO BID tab 08/21/19 09/26/20 04/25/20 release 24hr metoprolol succinate 100 mg 100 mg PO QAM #30 tab 08/21/19 09/26/20 04/26/20 07:30 tablet,extended release 24 hr rosuvastatin 10 mg tablet 10 mg PO HS #90 tab 08/21/19 09/26/20 04/25/20 empagliflozin 10 mg tablet 10 mg PO QAM 10/27/19 09/26/20 04/25/20 furosemide 40 mg tablet 40 mg PO QAM #45 tab 10/27/19 09/26/20 Unknown diltiazem HCl 240 mg 240 mg PO QAM #90 cap 05/27/20 09/26/20 Unknown capsule,extended release 24 hr digoxin 125 mcg (0.125 mg) tablet 125 mcg PO QPM #90 tab 07/12/20 09/26/20 Unknown glimepiride 2 mg PO DAILY 09/26/20 09/26/20 Unknown potassium gluconate 595 mg PO DAILY 09/26/20 09/26/20 Unknown Active Medications Generic Name Dose Route Start Last Admin Trade Name Freq PRN Reason Stop Dose Admin Bisacodyl 10 mg 09/27/20 09:00 09/29/20 08:59 Bisacodyl 10 Mg Supp MS 10/27/20 08:59 10 mg DAILY ZELDA Administration Digoxin 0.125 mg 09/26/20 21:00 09/28/20 20:26 Digoxin 0.125 Mg Tab PO 10/26/20 20:59 0.125 mg QPM ZELDA Administration Diltiazem HCl 240 mg 09/27/20 09:00 09/29/20 08:58 Diltiazem Hcl 240 Mg Capcr PO 10/27/20 08:59 240 mg QAM ZELDA Administration Sodium Chloride 1,000 mls @ 80 mls/hr 09/26/20 20:00 09/29/20 08:57 Nss 1000ml IV 10/26/20 19:59 80 mls/hr .[id number] ZELDA Administration Ampicillin Sodium/Sulbactam 108 mls @ 200 mls/hr 09/27/20 20:00 09/29/20 15:01 Sodium 3,000 mg/ Sodium IV 10/06/20 19:59 200 mls/hr Chloride Q6H ZELDA Administration Protocol Insulin Aspart 0 units 09/27/20 16:30 09/29/20 13:06 Insulin Aspart 100 Units/Ml 3 Ml Pen SC 10/27/20 16:29 2 units ACHS ZELDA Administration Metoprolol Succinate 100 mg 09/27/20 09:00 09/29/20 08:57 Metoprolol Succ 50mg Ext Rel Tab PO 10/27/20 08:59 100 mg QAM ZELDA Administration Rosuvastatin Calcium 10 mg 09/26/20 21:00 09/28/20 20:26 Rosuvastatin Calcium 10 Mg Tab PO 10/26/20 20:59 10 mg HS ZELDA Administration NPO Date Last Intake of Fluids: 09/29/20 Time Last Intake of Fluids: 13:00 Date Last Intake of Solids: 09/27/20 Time Last Intake of Solids: 18:00 Past Medical History Medical History Adrenal adenoma Atrial fibrillation dx 01/2018. on Eliquis. Follows w/ Dr. Harvey. DM type 2 (diabetes mellitus, type 2) NIDDM Hypertension On anticoagulant therapy Pulmonary hypertension Renal lesion Scoliosis Sleep apnea CPAP Exercise / Class Metabolic Activity II 4-5 Yardwork/Stairs/Walk up hill Past Family History Family History Sister Colorectal cancer Other No family history of adverse response to anesthesia Past Surgical History Surgical History History of benign breast biopsy History of cataract surgery RT History of D&C History of tooth extraction Past Anesthesia History No Hx of Anesthesia Complications and No Family Hx of Anesthesia Complications History of PONV No Hx of PONV and No Hx of Motion Sickness Social History Smoking Status: Never smoker Hx Alcohol Use: No Alcohol type: wine alcohol intake frequency: holidays/special occasions only Hx Substance Use: No substance use type: does not use Review of Systems denies fever/cough/ colds/ chest pain/ SOB/ JAZMYNE denies JAZMYNE Physical Exam Vital Signs Last Vital Signs Temp 36.5 C 09/29/20 15:22 Pulse 76 09/29/20 15:22 Resp 18 09/29/20 15:22 BP 166/107 H 09/29/20 15:22 Pulse Ox 98 09/29/20 15:22 ENMT Mouth: no TMJ abnormality and no dentition abnormality Thyromental Distance: > or= 3.5 Finger Breadths Mallampati Class: II Neck neck extension not limited Respiratory normal respiratory effort; no respiratory distress Auscultation: lungs clear to auscultation bilaterally Cardiovascular Rate/Rhythm: regular rate and regular rhythm Neurologic moves all extremities Psychiatric Orientation: alert and oriented x 3 Testing Laboratory Results 09/29/20 07:50 09/29/20 07:50 Hemoglobin A1c 7.4 % (4.5-5.6) H 09/27/20 07:38 Urine Color Yellow 09/26/20 15:14 Urine Appearance Cloudy (Clear) A 09/26/20 15:14 Urine pH 5.0 (4.5-7.5) 09/26/20 15:14 Ur Specific [place] 1.040 (1.000-1.030) H 09/26/20 15:14 Urine Protein Negative (Negative) 09/26/20 15:14 Urine Glucose (UA) 3+ (Negative) H 09/26/20 15:14 Urine Ketones 1+ (Negative) H 09/26/20 15:14 Urine Nitrite Negative (Negative) 09/26/20 15:14 Ur Leukocyte Esterase Trace (Negative) H 09/26/20 15:14 Urine WBC (Auto) >30 /hpf (0-5) H 09/26/20 15:14 Urine RBC (Auto) 0-4 /hpf (0-4) 09/26/20 15:14 U Hyaline Cast (Auto) 1-5 /lpf (0-5) 09/26/20 15:14 U Epithel Cells (Auto) >30 /lpf (0-5) H 09/26/20 15:14 Urine Bacteria (Auto) Negative (Negative) 09/26/20 15:14 09/26/20 19:47 Aerobic Blood Culture - Preliminary Blood No growth in Aerobic bottle after 48 hours. Anaerobic Blood Culture - Preliminary No growth in Anaerobic bottle after 48 hours. 09/26/20 19:47 Aerobic Blood Culture - Preliminary Blood No growth in Aerobic bottle after 48 hours. Anaerobic Blood Culture - Preliminary No growth in Anaerobic bottle after 48 hours. 09/26/20 15:14 Urine Culture - Final Urine,Clean Catch Group B Beta Strep 09/29/20 09/29/20 12:06 08:36 POC Glucose 118 H 117 H
[2020-09-29] MEDS ORDERED: MIDAZOLAM HCL 1 MG/ML 2ML VIAL ONE (15:32)
--- NOTE | 2020-09-29 17:06 | GI REPORT ---
Patient Name: Suzanne Maddox Procedure Date: 09/29/2020 3:28 PM Date of : 1950 Admit Type: Inpatient Age: 69 Gender: Female Attending MD: Yrn Mejia DO Procedure: Colonoscopy Providers: Yrn Mejia DO Referring MD: Fernando Cody Indications: Decompression of acute non-toxic megacolon Medicines: Monitored Anesthesia Care Complications: No immediate complications. Estimated Blood Loss: Estimated blood loss: none. Procedure: Pre-Anesthesia Assessment: - Prior to the procedure, a History and Physical was performed, and patient medications and allergies were reviewed. The patient's tolerance of previous anesthesia was also reviewed. The risks and benefits of the procedure and the sedation options and risks were discussed with the patient. All questions were answered, and informed consent was obtained. Prior Anticoagulants: The patient has taken Eliquis (apixaban), last dose was 3 days prior to procedure. ASA Grade Assessment: III - A patient with severe systemic disease. After reviewing the risks and benefits, the patient was deemed in satisfactory condition to undergo the procedure. After I obtained informed consent, the scope was passed under direct vision. Throughout the procedure, the patient's blood pressure, pulse, and oxygen saturations were monitored continuously. The Colonoscope was introduced through the anus with the intention of advancing to the ileum. The scope was advanced to the transverse colon before the procedure was aborted. Medications were given. The Colonoscope was introduced through the and advanced to. The colonoscopy was performed with difficulty due to multiple diverticula in the colon, bowel stenosis, inadequate bowel prep and poor endoscopic visualization. Successful completion of the procedure was aided by lavage. The patient tolerated the procedure well. The quality of the bowel preparation was inadequate. No anatomical landmarks were photographed. Findings: Hemorrhoids were found on perianal exam. Copious quantities of semi-liquid solid stool was found in the entire colon, making visualization difficult. Lavage of the area was performed using copious amounts of normal saline, resulting in incomplete clearance with continued poor visualization. Many small and large-mouthed diverticula were found in the sigmoid colon. There was stenosis of the colon in association with the diverticular disease and a large fecal ball obstructing passage of stool proximally as well as passage of colonoscope. Maliha-diverticular erythema was seen. There was evidence of an impacted diverticulum. Biopsies were taken with a cold forceps for histology. Decompression was successful following destruction of fecal material with aid of rat-toothed forceps. Non-bleeding internal hemorrhoids were found during retroflexion. The hemorrhoids were medium-sized. Impression: - Preparation of the colon was inadequate. - Hemorrhoids found on perianal exam. - Stool in the entire examined colon. - Severe diverticulosis in the sigmoid colon. There was narrowing of the colon in association with the diverticular opening. Maliha-diverticular erythema was seen. There was evidence of an impacted diverticulum. Biopsied. - Non-bleeding internal hemorrhoids. Recommendation: - [facility] care. - Clear liquid diet. - Golytely bowel prep tonight - Repeat colonoscopy tomorrow because the examination was incomplete. - Continue present medications. Yrn Mejia, DO 09/29/2020 5:05:51 PM This report has been signed electronically. Note Initiated On: 09/29/2020 3:28 PM Number of Addenda: 0 I attest to the content of the Intraoperative Record and orders documented therein, exceptions below {[id number]}
[2020-09-29] MEDS: POLYETHYLENE (MIRALAX) 17 GM PACK PO SCH (17:16)
--- NOTE | 2020-09-29 17:19 | Anesthesiology Progress Note ---
Date of Service September 29, 2020 Anesthesia Post Procedure Vital Signs Vital Signs: Temp Pulse Pulse Pulse Resp BP BP 09/29/20 16:59 70 16 135/79 09/29/20 15:22 36.5 C 76 18 166/107 H 09/29/20 07:39 36.4 C L 73 16 137/96 09/28/20 23:40 36.7 C 71 16 139/85 09/28/20 20:26 66 09/28/20 20:22 66 Pulse Ox 09/29/20 16:59 98 09/29/20 15:22 98 09/29/20 07:39 97 09/28/20 23:40 96 09/28/20 20:26 09/28/20 20:22 Pain Intensity Abdomen: Pain Intensity: 0 Transfer of Care Handoff Completed per policy Notes Mental Status: alert / awake / arousable and participated in evaluation Patient Amnestic to Procedure: Yes Nausea / Vomiting: adequately controlled Pain: adequately controlled Airway Patency, RR, SpO2: stable & adequate BP & HR: stable & adequate Hydration State: stable & adequate Anesthetic Complications: no major complications apparent and Pt Satisfied with anesthetic care
[2020-09-29] MEDS ORDERED: LAVAGE SOLUTION 4000ML PO SCH (20:00)
--- NOTE | 2020-09-29 21:01 | Post Operative Brief Note ---
Immediate Post Op Note v1 Date of Surgery September 29, 2020 Pre & Post Diagnosis Operation Date: 09/29/20 16:45 Pre-Op Diagnosis: ABDOMINAL DISTENSION, DIVERTICULITIS Post-Op Diagnosis: Diverticulosis, Hemorrhoids, and Stricture I identified the patient and participated in the time-out.: Yes Procedure Operation Date: 09/29/20 16:45 Actual Procedures p Colonoscopy Biopsy Cytology - Yrn Mejia, DO Surgeon Curtis Gardner MD Drying Room Operator None Estimated Blood Loss 20 Findings Consistent with Post-Op Diagnosis
[2020-09-29] MEDS: ROSUVASTATIN CALCIUM 10 MG TAB PO SCH (22:33)
[2020-09-29] MEDS: DIGOXIN 0.125 MG TAB PO SCH (22:33)
[2020-09-30] MEDS: AMPICILLIN/SULBACTAM SOD 3,000 MG in 0.9 % SODIUM CHLORIDE 100 ML IV SCH ×4 (01:24→19:58)
[2020-09-30] MEDS ORDERED: Nursing to Pharmacy Communication SCH ×2 (04:30→18:30)
[2020-09-30] MEDS: INSULIN ASPART 100 UNITS/ML 3 ML PEN SC SCH ×4 (06:02→21:08)
[2020-09-30] MEDS: bisacodyL 10 MG SUPP PR SCH (07:49)
[2020-09-30] MEDS: POLYETHYLENE (MIRALAX) 17 GM PACK PO SCH (07:49)
--- NOTE | 2020-09-30 09:00 | History & Physical Bridge Note ---
Date of Service September 30, 2020 History & Physical Bridge Note I have examined the patient, reviewed the History & Physical and in the interval since the performance of the History & Physical I have noted the following changes of clinical significance: no changes noted Patient reports she completed her bowel preparation last night and has been NPO. She denies abdominal pain or rectal bleeding. She does report bloating. Proceed with repeat colon 09/30/2020. Supervising Physician Co-Signing Physician Notes Agree with MILES Ordoñez Abd: Soft, Less distended, +BS Continue supportive care and bowel regimen Continue antibiotics as per hospitalist team Proceed with colonoscopy today
--- NOTE | 2020-09-30 10:03 | Medical Student Progress Note ---
Date of Service September 30, 2020 Assessment & Plan (1) Sleep apnea: Doing well. continue cpap at night (2) Hypertension: has been fairly normotensive during hospital stay continue diltiazem and metoprolol (3) Atrial fibrillation, permanent: rate controlled. Continue to hold Eliquis continue metoprolol and diltiazem Admission and Anticipated Discharge Date Admission Date: September 26, 2020 Subjective Mrs Maddox says that she is doing well today. She feels her abdomen is less di stended. She had a colonoscopy done yesterday for decompression. However it was unsuccessful. She will have a repeat colonoscopy today with Prep. Took prep yesterday night. Currently NPO. She had 2 BMs yesterday before the colonoscopy, and she has an fecal incontenence episode at night time where she could not make it to the bathroom. Still passing gas, less than yesterday. No bloody stools. No abdominal pain, n/v. Rectal hemorrhoids feel irritated. Review of Systems Constitutional: no fever, no chills and no sweats Respiratory: no cough, no chest congestion and no dyspnea Cardiovascular: no chest pain, no chest pain at rest, no chest pain with ac tivity, no radiating jaw, neck or arm pain, no dyspnea and no syncope Gastrointestinal: + bloating, + constipation and + fecal incontinence; no abdominal pain, no nausea, no vomiting, no hematemesis, no cramping and no blood in stools Psychiatric: no depression, no hopelessness, no anhedonia and no confusion Physical Exam Constitutional: well developed and well nourished; no acute distress and not ill appearing Respiratory: normal respiratory effort; no respiratory distress, no labored breathing and no cough Auscultation: lungs clear to auscultation bilaterally; no crackles, no rhonchi and no wheezes Cardiovascular: Rate/Rhythm: regular rate and + irregularly irregular Vessels: no JVD Extremities: + edema (trace bilateral pedal edema ); no calf tenderness and no pedal edema Gastrointestinal (Abdomen): Inspection/Auscultation: + abdomen distended and + hypoactive bowel sounds Percussion/Palpation: abdomen soft, + hernia and + tympanic to percussion; abdomen nontender and no guarding Psychiatric: Orientation: alert and oriented x 3 Apperance: appropriately dressed Eye Contact: good eye contact Motor Behavior: steady gait and station Speech: normal rate/rhythm/volume of speech Affect: euthymic affect Results & Data ([facility]) Vital Signs (Past 12 Hours) Vital Signs Temp Pulse Pulse Pulse Resp BP BP 09/30/20 07:21 36.5 C 85 128/81 09/30/20 03:08 36.4 C L 87 16 119/71 09/29/20 23:00 36.9 C 99 H 18 134/81 09/29/20 22:33 100 H 09/29/20 22:32 100 H Pulse Ox 09/30/20 07:21 96 09/30/20 03:08 96 09/29/20 23:00 96 09/29/20 22:33 09/29/20 22:32
[2020-09-30] MEDS: SODIUM CHLORIDE 0.9% 1000ML 1,000 ML IV SCH (10:12)
--- NOTE | 2020-09-30 10:25 | Surgery Progress Note ---
Date of Service September 30, 2020 Assessment & Plan (1) Abnormal CT of the abdomen: Results of decompression colonoscopy again reviewed She underwent a bowel prep and has been tolerating that with plans for another colonoscopy today. Possible dilatation of stricture area Can then await pathology results of biopsies were taken May eventually need resection of this area She is showing evidence of possible beginning fistulization with the bladder and may need colorectal evaluation for that. Admission and Anticipated Discharge Date Admission Date: September 26, 2020 Subjective Feels better today No abdominal pain Less distended Has had multiple bowel movements with bowel prep No hematochezia Physical Exam Gastrointestinal (Abdomen): Inspection/Auscultation: + abdomen distended (Much less so today) and normal bowel sounds Percussion/Palpation: abdomen soft; abdomen nontender Results & Data ([facility]) Vital Signs (Past 12 Hours) Vital Signs Temp Pulse Pulse Pulse Resp BP BP 09/30/20 07:21 36.5 C 85 128/81 09/30/20 03:08 36.4 C L 87 16 119/71 09/29/20 23:00 36.9 C 99 H 18 134/81 09/29/20 22:33 100 H 09/29/20 22:32 100 H Pulse Ox 09/30/20 07:21 96 09/30/20 03:08 96 09/29/20 23:00 96 09/29/20 22:33 09/29/20 22:32 Laboratory Results 09/30/20 09/30/20 09/29/20 Range/Units 10:10 05:34 21:00 Sodium Pending Potassium Pending Chloride Pending Carbon Dioxide Pending Anion Gap Pending BUN Pending Creatinine Pending Est Cr Clr Drug Dosing Pending Est GFR ( Amer) Pending Est GFR (Non-Af Amer) Pending BUN/Creatinine Ratio Pending Glucose Pending POC Glucose 127 H 166 H (70-99) mg/dl Calcium Pending 09/29/20 09/29/20 Range/Units 17:52 12:06 Sodium Potassium Chloride Carbon Dioxide Anion Gap BUN Creatinine Est Cr Clr Drug Dosing Est GFR ( Amer) Est GFR (Non-Af Amer) BUN/Creatinine Ratio Glucose POC Glucose 112 H 118 H (70-99) mg/dl Calcium
[2020-09-30 10:57] LABS: BUN Creatinine Ratio 13.4 (10-20); Calcium 8.3 mg/dl (8.5-10.1); Creatinine Clr Calc Pharmacy 71.8 ml/min; Est GFR (African American) 94.5; Est GFR (Non-African American) 81.5; Potassium 3.5 mmol/L (3.5-5.1)
[2020-09-30] MEDS ORDERED: HYDROCORTISONE HC 2.5% CRM 30GM TUBE EXT PRN (10:58)
[2020-09-30] MEDS ORDERED: HYDROCORTISONE ACETATE 25 MG SUPP PR PRN (10:58)
--- NOTE | 2020-09-30 12:22 | Anesthesiology Consultation ---
Date of Service September 30, 2020 Assessment & Plan (1) Encounter for pre-operative examination: Chart Review Chart Review: Acceptable Risk for Surgery and Patient NOT seen in Pre Admission Testing Consults Requested none History Surgery Operation Date: 09/29/20 16:45 Proposed Procedures p Colonoscopy Dr. Roberto Graham Case, DO Operation Date: 09/30/20 16:00 Proposed Procedures p Colonoscopy Dr. Roberto Graham Case, DO Height/Weight Height: 5 ft 6 in Weight: 74.2 kg Allergies Allergy/AdvReac Type Severity Reaction Status Date / Time propoxyphene AdvReac Unknown Depression Verified 09/29/20 15:38 Medications Home Medications Medication Instructions Recorded Confirmed Last Taken apixaban 5 mg tablet 5 mg PO BID #60 tab 08/21/19 09/26/20 04/25/20 ferrous sulfate 325 mg (65 mg 325 mg PO QAM #30 tab 08/21/19 09/26/20 04/25/20 iron) tablet metformin 500 mg tablet,extended 500 mg PO BID tab 08/21/19 09/26/20 04/25/20 release 24hr metoprolol succinate 100 mg 100 mg PO QAM #30 tab 08/21/19 09/26/20 04/26/20 07:30 tablet,extended release 24 hr rosuvastatin 10 mg tablet 10 mg PO HS #90 tab 08/21/19 09/26/20 04/25/20 empagliflozin 10 mg tablet 10 mg PO QAM 10/27/19 09/26/20 04/25/20 furosemide 40 mg tablet 40 mg PO QAM #45 tab 10/27/19 09/26/20 Unknown diltiazem HCl 240 mg 240 mg PO QAM #90 cap 05/27/20 09/26/20 Unknown capsule,extended release 24 hr digoxin 125 mcg (0.125 mg) tablet 125 mcg PO QPM #90 tab 07/12/20 09/26/20 Unknown glimepiride 2 mg PO DAILY 09/26/20 09/26/20 Unknown potassium gluconate 595 mg PO DAILY 09/26/20 09/26/20 Unknown Active Medications Generic Name Dose Route Start Last Admin Trade Name Freq PRN Reason Stop Dose Admin Bisacodyl 10 mg 09/27/20 09:00 09/30/20 07:49 Bisacodyl 10 Mg Supp WI 10/27/20 08:59 Not Given DAILY ZELDA Digoxin 0.125 mg 09/26/20 21:00 09/29/20 22:33 Digoxin 0.125 Mg Tab PO 10/26/20 20:59 0.125 mg QPM ZELDA Administration Diltiazem HCl 240 mg 09/27/20 09:00 09/29/20 08:58 Diltiazem Hcl 240 Mg Capcr PO 10/27/20 08:59 240 mg QAM ZELDA Administration Sodium Chloride 1,000 mls @ 80 mls/hr 09/26/20 20:00 09/30/20 10:12 Nss 1000ml IV 10/26/20 19:59 80 mls/hr .[id number] ZELDA Administration Ampicillin Sodium/Sulbactam 108 mls @ 200 mls/hr 09/27/20 20:00 09/30/20 08:30 Sodium 3,000 mg/ Sodium IV 10/06/20 19:59 Infused Chloride Q6H ZELDA Infusion Protocol Insulin Aspart 0 units 09/30/20 06:00 09/30/20 06:02 Insulin Aspart 100 Units/Ml 3 Ml Pen SC 10/30/20 05:59 Not Given Q6 ZELDA Metoprolol Succinate 100 mg 09/27/20 09:00 09/29/20 08:57 Metoprolol Succ 50mg Ext Rel Tab PO 10/27/20 08:59 100 mg QAM ZELDA Administration Polyethylene Glycol 17 gm 09/29/20 12:45 09/30/20 07:49 Polyethylene (Miralax) 17 Gm Pack PO 10/29/20 12:44 Not Given DAILY ZELDA Rosuvastatin Calcium 10 mg 09/26/20 21:00 09/29/20 22:33 Rosuvastatin Calcium 10 Mg Tab PO 10/26/20 20:59 10 mg HS ZELDA Administration NPO Date Last Intake of Fluids: 09/30/20 Time Last Intake of Fluids: 00:10 Date Last Intake of Solids: 09/27/20 Time Last Intake of Solids: 18:00 Past Medical History Medical History Adrenal adenoma Atrial fibrillation dx 01/2018. on Eliquis. Follows w/ Dr. Harvey. DM type 2 (diabetes mellitus, type 2) NIDDM Hypertension On anticoagulant therapy Pulmonary hypertension Renal lesion Scoliosis Sleep apnea CPAP Past Family History Family History Sister Colorectal cancer Other No family history of adverse response to anesthesia Past Surgical History Surgical History History of benign breast biopsy History of cataract surgery RT History of D&C History of tooth extraction Social History Smoking Status: Never smoker Hx Alcohol Use: No Alcohol type: wine alcohol intake frequency: holidays/special occasions only Hx Substance Use: No substance use type: does not use Physical Exam Vital Signs Last Vital Signs Temp 36.5 C 09/30/20 07:21 Pulse 85 09/30/20 07:21 Resp 16 09/30/20 03:08 BP 128/81 09/30/20 07:21 Pulse Ox 96 09/30/20 07:21 Testing Laboratory Results 09/29/20 07:50 09/30/20 10:10 Hemoglobin A1c 7.4 % (4.5-5.6) H 09/27/20 07:38 Urine Color Yellow 09/26/20 15:14 Urine Appearance Cloudy (Clear) A 09/26/20 15:14 Urine pH 5.0 (4.5-7.5) 09/26/20 15:14 Ur Specific [place] 1.040 (1.000-1.030) H 09/26/20 15:14 Urine Protein Negative (Negative) 09/26/20 15:14 Urine Glucose (UA) 3+ (Negative) H 09/26/20 15:14 Urine Ketones 1+ (Negative) H 09/26/20 15:14 Urine Nitrite Negative (Negative) 09/26/20 15:14 Ur Leukocyte Esterase Trace (Negative) H 09/26/20 15:14 Urine WBC (Auto) >30 /hpf (0-5) H 09/26/20 15:14 Urine RBC (Auto) 0-4 /hpf (0-4) 09/26/20 15:14 U Hyaline Cast (Auto) 1-5 /lpf (0-5) 09/26/20 15:14 U Epithel Cells (Auto) >30 /lpf (0-5) H 09/26/20 15:14 Urine Bacteria (Auto) Negative (Negative) 09/26/20 15:14 09/26/20 19:47 Aerobic Blood Culture - Preliminary Blood No growth in Aerobic bottle after 48 hours. Anaerobic Blood Culture - Preliminary No growth in Anaerobic bottle after 48 hours. 09/26/20 19:47 Aerobic Blood Culture - Preliminary Blood No growth in Aerobic bottle after 48 hours. Anaerobic Blood Culture - Preliminary No growth in Anaerobic bottle after 48 hours. 09/26/20 15:14 Urine Culture - Final Urine,Clean Catch Group B Beta Strep 09/30/20 05:34 POC Glucose 127 H
[2020-09-30] MEDS ORDERED: PROPOFOL IV EMULSION 10 MG/ML 20 ML VIAL IV ONE ×3 (13:19→14:30)
[2020-09-30] MEDS ORDERED: LIDOCAINE HCL 2% 2 ML VIAL/AMP(20MG/ML) INFIL ONE (13:19)
--- NOTE | 2020-09-30 14:41 | GI REPORT ---
Patient Name: Suzanne Maddox Procedure Date: 09/30/2020 1:46 PM Date of : 1950 Admit Type: Inpatient Age: 69 Gender: Female Attending MD: Yrn Mejia DO Procedure: Colonoscopy Providers: Yrn Mejia DO Referring MD: Fernando Cody Indications: Abnormal CT of the GI tract Medicines: Monitored Anesthesia Care Complications: No immediate complications. Estimated Blood Loss: Estimated blood loss: none. Procedure: Pre-Anesthesia Assessment: - Prior to the procedure, a History and Physical was performed, and patient medications and allergies were reviewed. The patient's tolerance of previous anesthesia was also reviewed. The risks and benefits of the procedure and the sedation options and risks were discussed with the patient. All questions were answered, and informed consent was obtained. Prior Anticoagulants: The patient has taken Eliquis (apixaban), last dose was 4 days prior to procedure. ASA Grade Assessment: III - A patient with severe systemic disease. After reviewing the risks and benefits, the patient was deemed in satisfactory condition to undergo the procedure. After I obtained informed consent, the scope was passed under direct vision. Throughout the procedure, the patient's blood pressure, pulse, and oxygen saturations were monitored continuously. The Colonoscope was introduced through the anus and advanced to the terminal ileum. The colonoscopy was performed without difficulty. The patient tolerated the procedure well. The quality of the bowel preparation was poor. The terminal ileum, ileocecal valve, appendiceal orifice, and rectum were photographed. Findings: The perianal and digital rectal examinations were normal. A large amount of stool was found in the entire colon, interfering with visualization. Many small and large-mouthed diverticula were found in the sigmoid colon. There was narrowing of the colon in association with the diverticular opening. Maliha-diverticular erythema was seen. There was evidence of an impacted diverticulum. There was no evidence of diverticular bleeding. Biopsies were taken with a cold forceps for histology. Non-bleeding internal hemorrhoids were found during retroflexion. The hemorrhoids were small. Impression: - Preparation of the colon was poor. - Stool in the entire examined colon. - Severe diverticulosis in the sigmoid colon. There was narrowing of the colon in association with the diverticular opening. Maliha-diverticular erythema was seen. There was evidence of an impacted diverticulum. There was no evidence of diverticular bleeding. Biopsied. - Non-bleeding internal hemorrhoids. Recommendation: - [facility] to [facility] care. - Full liquid diet. - Continue present medications. - Miralax 1 capful (17 grams) in 8 ounces of water PO BID. - Await pathology results. - Although no acute need for surgical intervention, I believe she will need a sigmoid resection in the near future due to stricturing and deformity caused by diverticular disease. Yrn Graham Case, DO 09/30/2020 2:41:22 PM This report has been signed electronically. Note Initiated On: 09/30/2020 1:46 PM Number of Addenda: 0 I attest to the content of the Intraoperative Record and orders documented therein, exceptions below {[id number]}
--- NOTE | 2020-09-30 14:46 | Anesthesiology Progress Note ---
Date of Service September 30, 2020 Anesthesia Post Procedure Vital Signs Vital Signs: Temp Pulse Pulse Pulse Pulse Resp BP 09/30/20 14:33 90 16 09/30/20 12:59 36.6 C 87 16 09/30/20 07:21 36.5 C 85 09/30/20 03:08 36.4 C L 87 16 119/71 09/29/20 23:00 36.9 C 99 H 18 134/81 09/29/20 22:33 100 H 09/29/20 22:32 100 H 09/29/20 19:16 36.2 C L 91 H 18 09/29/20 17:27 71 16 09/29/20 17:14 69 16 09/29/20 16:59 70 16 09/29/20 15:22 36.5 C 76 18 BP Pulse Ox 09/30/20 14:33 132/70 98 09/30/20 12:59 151/66 H 97 09/30/20 07:21 128/81 96 09/30/20 03:08 96 09/29/20 23:00 96 09/29/20 22:33 09/29/20 22:32 09/29/20 19:16 137/85 96 09/29/20 17:27 154/87 H 981 H 09/29/20 17:14 154/87 H 100 09/29/20 16:59 135/79 98 09/29/20 15:22 166/107 H 98 Pain Intensity Abdomen: Pain Intensity: 0 Transfer of Care Handoff Completed per policy Notes Mental Status: alert / awake / arousable and participated in evaluation Nausea / Vomiting: adequately controlled Pain: adequately controlled Airway Patency, RR, SpO2: stable & adequate BP & HR: stable & adequate Hydration State: stable & adequate Anesthetic Complications: no major complications apparent and Pt Satisfied with anesthetic care
[2020-09-30] MEDS: METOPROLOL SUCC 50MG EXT REL TAB PO SCH (18:21)
[2020-09-30] MEDS: dilTIAZem HCL 240 MG CAPCR PO SCH (18:21)
[2020-09-30] MEDS: ROSUVASTATIN CALCIUM 10 MG TAB PO SCH (19:59)
[2020-09-30] MEDS: DIGOXIN 0.125 MG TAB PO SCH (19:59)
--- NOTE | 2020-09-30 21:23 | Hospitalist Progress Note ---
Date of Service September 30, 2020 Assessment & Plan (1) Colonic obstruction: colonic obstruction 2nd to diverticular stricture and impaction of very large sigmoid diverticulum. s/p colonoscopy x [address] Mejia. removal of stool during first colonoscopy. biopsy from yesterday's colonoscopy negative. colonoscopy today with similar findings although able to traverse the sigmoid and get the scope to the TI. prep was poor. plan - lower fluid rate, full liquids, labs am. elective sigmoidectomy in the future. appreciate gen surg and GI assistance. (2) Constipation: severe, with associated stercoral colitis. diverticulitis sigmoid colon as well. see above. cont unasyn. (3) Colitis: stercoral colitis along with diverticulitis. unasyn for latter. see above. (4) Diverticulitis: Large diverticulum with superimposed mild acute diverticulitis of sigmoid colon confirmed on c-scope and CT. Continue Unasyn. see above. (5) On anticoagulant therapy: On apixaban at home for atrial fibrillation. Holding Eliquis at this time. (6) Pulmonary hypertension: Noted on previous echocardiogram resume lasix at d/c (7) Atrial fibrillation, permanent: Rates controlled Holding Eliquis Continue triple AV steve agents (8) Sleep apnea: Continue CPAP 8cm water (9) Diabetes: Cont to hold home Metformin, glimepiride, and Jardiance Cont Lantus and NovoLog Controlled (10) Hypertension: continue home metoprolol, diltiazem controlled (11) Renal lesion: Incidentally noted on CT scan to have a 1.8 cm left renal lesion-radiology recommends a nonemergent contrast-enhanced renal protocol CT or MRI for further assessment Perform as outpatient will inform patient (12) Adrenal adenoma: Incidentally noted on CT scan to have a 2.7 cm left adrenal nodule which meets CT criteria for a fat-containing adenoma. Also with a 1.4 cm myelolipoma arising from the right adrenal gland Follow as an outpatient (13) UTI (urinary tract infection): 2nd group BP strep Unasyn will suffice plan 7 day course of IV/PO abx (augmentin in tal of unasyn ultimately) (14) Hemorrhoids: internal non-bleeding (15) DVT prophylaxis: Holding home Eliquis as above cont current IV fluids until tomorrow am, then stop, and resume lasix then updated pt's this evening by phone questions answered home this weekend Admission and Anticipated Discharge Date Admission Date: September 26, 2020 Subjective saw patient prior to her colonoscopy. had 1 BM with her golytely prep. passed decent flatus with this and feels that abd bloating today is best it has been the entire stay. no abdominal pain. no BRBPR. no respiratory symptoms. overall feeling ok. ambulating. Review of Systems Constitutional: no fever Respiratory: no cough and no dyspnea Cardiovascular: no chest pain Gastrointestinal: no abdominal pain, no nausea and no vomiting Physical Exam Constitutional: well developed and well nourished; no acute distress and no al tered mental status ENMT: external ear and nose normal, oropharynx normal Respiratory: normal respiratory effort, lungs clear to auscultation Cardiovascular: RRR, no murmur, no edema Rate/Rhythm: regular rate and + irregularly irregular Heart Sounds: normal S1 and normal S2; no murmur Vessels: posterior tibial pulses present and dorsalis pedis pulses present; no JVD Gastrointestinal (Abdomen): Inspection/Auscultation: + abdomen distended (improved today, but still moderate in amount ) and normal bowel sounds Percussion/Palpation: abdomen nontender, no guarding and no hepatosplenomegaly Psychiatric: A+Ox3, euthymic affect Results & Data Results & Data ([facility]) Vital Signs (Past 12 Hours) Vital Signs Temp Pulse Pulse Pulse Resp BP Pulse Ox 09/30/20 19:59 86 09/30/20 15:47 36.2 C L 93 H 18 137/80 96 09/30/20 15:03 90 16 145/77 H 97 09/30/20 14:48 86 16 158/69 H 97 09/30/20 14:33 90 16 132/70 98 09/30/20 12:59 36.6 C 87 16 151/66 H 97 Laboratory Results Laboratory Results - last 24 hr 09/30/20 09/30/20 09/30/20 05:34 10:10 12:18 Sodium 142 Potassium 3.5 Chloride 111 H Carbon Dioxide 25 Anion Gap 7.0 BUN 10 Creatinine 0.74 Est Cr Clr Drug Dosing 71.8 Est GFR ( Amer) 94.5 Est GFR (Non-Af Amer) 81.5 BUN/Creatinine Ratio 13.4 Glucose 128 H POC Glucose 127 H 111 H Calcium 8.3 L 09/30/20 09/30/20 17:13 20:56 Sodium Potassium Chloride Carbon Dioxide Anion Gap BUN Creatinine Est Cr Clr Drug Dosing Est GFR ( Amer) Est GFR (Non-Af Amer) BUN/Creatinine Ratio Glucose POC Glucose 99 114 H Calcium PG Care Time/CCT Total # of Minutes Spent Total Time Spent with Patient: Total time spent is greater than 50% in coordination of care (as documented) at patient's floor/unit and/or counseling patient: Coding Level of Care Code 74723 Subseq Hosp Care Lvl 2 Diagnoses Colonic obstruction K56.609 Constipation K59.00 Constipation type: unspecified constipation type Colitis K52.9 Diverticulitis K57.92 On anticoagulant therapy Z79.01 Pulmonary hypertension I27.20 Atrial fibrillation, permanent I48.21 Sleep apnea G47.30 Diabetes E11.9 Hypertension I10 Renal lesion N28.9 Adrenal adenoma D35.00 UTI (urinary tract infection) N39.0 Hemorrhoids K64.9 DVT prophylaxis Z29.9 (1) Constipation Constipation type: unspecified constipation type Qualified Code(s): K59.00 - Constipation, unspecified
[2020-10-01] MEDS: AMPICILLIN/SULBACTAM SOD 3,000 MG in 0.9 % SODIUM CHLORIDE 100 ML IV SCH ×3 (02:48→13:11)
--- NOTE | 2020-10-01 06:36 | Surgery Progress Note ---
Date of Service October 01, 2020 Assessment & Plan (1) Colonic obstruction: -c-scope on 09/30/20 revealed stricture deformity in sigmoid colon, likely from diverticular disease: -currently pt. asymptomatic but may require sigmoid resection on elective basis in the future Admission and Anticipated Discharge Date Admission Date: September 26, 2020 Supervising Physician Co-Signing Physician Notes I personally saw and evaluated the patient with Cesario Blanchard PA-C and agree with the assessment and plan. 69 yo female with diverticular stricture -Colonoscopy from 09/30 reviewed -She is tolerating diet and continues to have bowel function -She may benefit from elective sigmoidectomy, but no plans for surgical intervention this admission -Ok to d/c from surgical standpoint and follow up with [facility] surgery as they have been following her Subjective Pt. denies N/V or worsening abdominal pain. She is tolerating liquids. She notes her abdomen is distended, but is markedly improved since her admission. Physical Exam Constitutional: well developed and well nourished; no acute distress Neck: trachea midline, no thyromegaly Respiratory: normal respiratory effort; no respiratory distress and no labored breathing Cardiovascular: Rate/Rhythm: regular rate and regular rhythm Gastrointestinal (Abdomen): Percussion/Palpation: abdomen soft; abdomen nontender mild distention noted, no pain with palpation Results & Data ([facility]) Vital Signs (Past 12 Hours) Vital Signs Temp Pulse Pulse Resp BP Pulse Ox 09/30/20 23:59 36.2 C L 64 16 126/76 95 09/30/20 19:59 86 PG Care Time/CCT Total # of Minutes Spent Total Time Spent with Patient: Total time spent is greater than 50% in coordination of care (as documented) at patient's floor/unit and/or counseling patient: Coding Level of Care Code 92872 Subseq Hosp Care Lvl 1 Diagnoses Colonic obstruction K56.609
[2020-10-01 06:48] LABS: Hematocrit (blood only) 38.2 % (37-47); Hemoglobin 12.5 g/dL (12.0-16.0); Mean Corpuscular Hemoglobin 29.8 pg (25-34); Mean Corpuscular Hgb Conc 32.7 g/dL (32-36); Mean Corpuscular Volume 91.2 fL (80-100); Mean Platelet Volume 10.2 fL (7.4-10.4); Platelet Count 404 K/uL (130-400); RDW Coefficient of Variation 14.2 % (11.5-14.5); RDW Standard Deviation 47.3 fL (36.4-46.3); Red Blood Count 4.19 M/uL (4.2-5.4); White Blood Count 6.66 K/uL (4.8-10.8)
[2020-10-01 07:27] LABS: BUN Creatinine Ratio 9.4 (10-20); Calcium 7.9 mg/dl (8.5-10.1); Creatinine Clr Calc Pharmacy 84.4 ml/min; Est GFR (African American) 104.6; Est GFR (Non-African American) 90.2; Magnesium 2.3 mg/dl (1.8-2.4); Potassium 3.4 mmol/L (3.5-5.1)
[2020-10-01] MEDS: SODIUM CHLORIDE 0.9% 1000ML 1,000 ML IV SCH (07:53)
[2020-10-01] MEDS: dilTIAZem HCL 240 MG CAPCR PO SCH (08:24)
[2020-10-01] MEDS: POLYETHYLENE (MIRALAX) 17 GM PACK PO SCH (08:24)
[2020-10-01] MEDS: METOPROLOL SUCC 50MG EXT REL TAB PO SCH (08:25)
[2020-10-01] MEDS: bisacodyL 10 MG SUPP PR SCH (08:26)
[2020-10-01] MEDS: INSULIN ASPART 100 UNITS/ML 3 ML PEN SC SCH ×2 (09:03→13:12)
[2020-10-01] MEDS ORDERED: POTASSIUM CHLORIDE CRTAB 20 MEQ TABCR PO ONE (10:00)
--- NOTE | 2020-10-01 12:34 | Pharmacy Report ---
Glycemic Control Progress Note - Date of Service October 01, 2020 - Scope Glycemic Pharmacist consulted for glycemic control to write orders per [facility] inpatient glycemic control protocol. - Objective Accuchecks BSG(last 24 hours):: 09/30/20 09/30/20 09/30/20 12:18 17:13 20:56 Glucose POC Glucose 111 H 99 114 H 10/01/20 10/01/20 10/01/20 06:37 08:19 12:04 Glucose 106 H POC Glucose 105 H 125 H HbA1c:: Hemoglobin A1c 7.4 % (4.5-5.6) H 09/27/20 07:38 - Recent Pertinent Medications The patient is currently receiving: * Basal insulin: Lantus -- units every -- hours * Correctional Insulin: Novolog Correction per scale ACHS Goal Range: Low 110 mg/dL - High 140 mg/dL Correction Factor: 30 mg/dL/unit * Prandial insulin: Per carb ratio of 1 unit per 15 grams CHO consumed - Outpatient Anti-Diabetic Meds Amaryl 2 mg daily metformin 500 mg ER BID - Assessment & Plan ASSESSMENT: * See progress note from 09/27/20 for more background info, in short: * Pt receiving SQ basal bolus insulin regimen for hyperglycemia secondary to baseline DM (outpatient regimen on hold). Patient started on diet today - full liquid. * Patient is currently receiving an average of 1 units of insulin per day * 0 units of basal insulin * 1 units of prandial/correctional insulin * BSGs ranging 99 - 127 mg/dl over the past 24hrs * Changes needed to insulin regimen: * AM Fasting BSG = 106 mg/dl. This is in goal range for patient based on inpatient targets and co-morbidities. Continue to hold basal for now. As patient's diet progresses she may require around 10 units of basal insulin. * Post-prandial BSGs are in range. Weight-based stress of 2 ordered. * Total daily dose = ? units. Will change with diet ordered * Additional notes / comments: continue to hold oral medications PLAN FOR INPATIENT GLYCEMIC CONTROL: * HOLDING Lantus * Continuing correction factor of 30 mg/dl/unit * TIGHTENING carb ratio to 1 unit per 10 grams CHO consumed * Continuing goal range of Low 110 mg/dL - High 140 mg/dL RECOMMENDATIONS FOR DISCHARGE: * Patient's HbA1C is well controlled for her age. * recommend discontinuation of Amaryl as sulfonylureas are not preferred agents in the elderly. * recommend increasing metformin to maximally tolerated dose such as 1000 mg BID Thank you.
[2020-10-01] MEDS ORDERED: FUROSEMIDE 40 MG TAB PO ONE (13:17)
--- NOTE | 2020-10-01 15:56 | Discharge Summary ---
Date of Service date of admission - September 26, 2020 date of discharge - October 01, 2020 Admission HPI Per Admitting Provider This patient is a 69-year-old pleasant female with a history of permanent atrial fibrillation on Eliquis, pulmonary hypertension by echo with RVSP of 60, sleep apnea on CPAP, hypertension, dyslipidemia, nonsustained ventricular tachycardia, and type 2 diabetes. Patient came to the ED today following visit for constipation last night and re-read of CT scan today with concern for fistula versus large diverticulum of the sigmoid colon with possible associated diverticulitis. She also noted to have significant colonic distention. Patient's last BM was 1 week ago. She normally goes 3-5 days with BM, and has had constipation prior that was relieved with Senna, enemas, and Miralax. Patient did receive Magnesium Citrate last night and this morning. Patient abdomen is distended, taut, she reports no pain and is passing flatus. She has no nausea or vomiting and no change in bladder habits. She does have a mild leukocytosis at 15 (she is normally 10-12K), lactate is 2.0. GI consult and Gen Surg Consult were placed in the ER and GI suggested a bisacodyl suppository which was given with no relief/results of bowel movement. When I saw the gama ent, she reported that the abdominal pain she was experiencing last night was now significantly improved despite the significant distention of her abdomen. She has never had a colonoscopy in her lifetime. She denies any fevers or chills. She reported she was making plenty of urine. She will be admitted to the hospital given her severe constipation and significant colonic distention for serial abdominal exams and consultation with gastroenterology for possible colonoscopy as well as surgical consultation. Principal Diagnosis colonic obstruction 2nd to large sigmoid diverticulum, diverticular stricture, fecal impaction, and sigmoid diverticulitis Discharge Exam Constitutional well developed and well nourished; no acute distress and no altered mental status ENMT external ear and nose normal, oropharynx normal Respiratory normal respiratory effort, lungs clear to auscultation Cardiovascular RRR, no murmur, no edema Rate/Rhythm: regular rate and + irregularly irregular Heart Sounds: normal S1 and normal S2; no murmur Vessels: posterior tibial pulses present and dorsalis pedis pulses present; no JVD Gastrointestinal (Abdomen) Inspection/Auscultation: + abdomen distended (Much improved; mild; had been severe) and normal bowel sounds Percussion/Palpation: abdomen nontender, no guarding and no hepatosplenomegaly Psychiatric A+Ox3, euthymic affect Discharge Data Allergies Allergy/AdvReac Type Severity Reaction Status Date / Time propoxyphene AdvReac Unknown Depression Verified 09/29/20 15:38 Consultations Consult Gastroenterology - Dr Pool Case Consult General Surgery - Dr Curtis Gardner Procedures Performed Operation Date: 09/29/20 16:45 Actual Procedures Colonoscopy Biopsy Cytology - Yrn Graham Case, DO - Preparation of the colon was inadequate. - Hemorrhoids found on perianal exam. - Stool in the entire examined colon. - Severe diverticulosis in the sigmoid colon. There was narrowing of the colon in association with the diverticular opening. [place]-diverticular erythema was seen. There was evidence of an impacted diverticulum. Biopsied. - Non-bleeding internal hemorrhoids. Operation Date: 09/30/20 16:00 Actual Procedures Colonoscopy Biopsy Cytology - Yrn Graham Case, DO - Preparation of the colon was poor. - Stool in the entire examined colon. - Severe diverticulosis in the sigmoid colon. There was narrowing of the colon in association with the diverticular opening. [place]-diverticular erythema was seen. There was evidence of an impacted diverticulum. There was no evidence of diverticular bleeding. Biopsied. - Non-bleeding internal hemorrhoids. Ordered Studies 09/26/20 CT abd pelvis wo con Stat IMPRESSION: 1. Severe constipation with evidence of stercoral colitis. 2. There is mild to moderate colonic diverticulosis. 3. There is a large outpouching along the right aspect of the sigmoid colon with mild surrounding infiltration. This may represent a giant diverticulum with superimposed mild acute diverticulitis or possibly developing fistulous tract. Nonemergent follow-up with colonoscopy is recommended for further assessment. 4. There is no bowel obstruction. No intraperitoneal free air is identified. 5. A 1.8 cm left renal lesion does not meet CT criteria for simple cyst. Follow- up with a nonemergent contrast-enhanced renal protocol CT or MRI is recommended for further assessment. 6. Cholelithiasis. 7. Large hiatal hernia. 09/29/20 CT abd pelvis wo con - IMPRESSION: 1. Severe constipation with evidence of stercoral colitis. This appears worsened as compared to 09/26/2020 2. There is increasing colonic distention as compared to previous, likely representing distal colonic obstruction. This may be related to impacted stool within the sigmoid region. Stricture or mass lesion is not excluded. Follow-up with colonoscopy is recommended for further assessment. 3. Again seen is a large outpouching along the right aspect of the sigmoid colon with mild surrounding infiltration. This may represent a giant diverticulum with superimposed diverticulitis or possibly developing fistulous tract. This should also be assessed by colonoscopy. 4. The small bowel loops are normal in caliber. No intraperitoneal free air is identified. 5. A small volume of abdominopelvic ascites is new from previous, as are small pleural effusions. 6. A 1.8 cm left renal lesion does not meet CT criteria for simple cyst. Follow- up with a nonemergent contrast-enhanced renal protocol CT or MRI is recommended for further assessment. 7. Cholelithiasis. 8. Large hiatal hernia. Hospital Course (1) Colonic obstruction: Colonic obstruction was 2nd to diverticular stricture and fecal impaction of very large sigmoid diverticulum. s/p colonoscopy x [address] Mejia. Significant removal of stool during first colonoscopy. Biopsy from colonoscopy negative. Seen by general surgery - elective sigmoid resection recommended in the near future following discharge. Patient was treated with bowel rest and IV antibiotics. Following her colonoscopies she was resumed on a diet and this was advanced slowly without difficulty. She was passing stool/flatus spontaneously before discharge. She will complete several more days of antibiotics after discharge, and will f/u with Dr Gardner from [facility] to discuss sigmoid resection. Low fiber diet for 7-10 days also advised. (2) Constipation: severe, with associated stercoral colitis. diverticulitis of the sigmoid colon was present as well. see above. (3) Colitis: stercoral colitis along with diverticulitis. bowel prep x 2. IV antibiotics. see above. (4) Diverticulitis: Large diverticulum with superimposed mild acute diverticulitis of sigmoid colon confirmed on colonoscopy and CT. A diverticular stricture was seen during the colonoscopy as well. See above. Elective sigmoid resection advised for the near future. (5) On anticoagulant therapy: On apixaban at home for atrial fibrillation. Apixaban resumed at discharge. (6) Pulmonary hypertension: Noted on previous echocardiogram. No hypoxia or oxygen requirement while here. (7) Atrial fibrillation, permanent: Rates controlled with triple AV steve agents. Continue such along with apixaban. (8) Sleep apnea: Continue CPAP 8cm water. (9) Diabetes: Continue Metformin, glimepiride, and Jardiance at discharge. Required lantus/novolog during the stay. (10) Hypertension: continue home metoprolol, diltiazem controlled during the hospitalization (11) Renal lesion: Incidentally noted on CT scan to have a 1.8 cm left renal lesion-radiology recommends a nonemergent contrast-enhanced renal protocol CT or MRI for further assessment. Perform as outpatient. (12) Adrenal adenoma: Incidentally noted on CT scan to have a 2.7 cm left adrenal nodule which meets CT criteria for a fat-containing adenoma. Also with a 1.4 cm myelolipoma arising from the right adrenal gland. Follow as an outpatient. (13) UTI (urinary tract infection): 2nd group B strep. Received IV antibiotics and will complete PO antibiotics at home. (14) Hemorrhoids: internal non-bleeding Total Time Total Time Spent Total Time Spent (In Minutes): 45 Total Time Includes: Examination of the Patient, Discharge Planning, Medication Reconciliation and Communication With Other Providers Discharge Plan Discharge Items Patient Disposition: Home - Self-Care Reason For Visit: ABDOMINAL DISTENSION, CONSTIPATION Discharge Diagnosis: 1. Severe abdominal distension (bloating) and constipation due to partial blockage in the last portion of the colon 2. Partial blockage was due to a large diverticulum (diverticular disease) that had a large amount of impacted stool in it 3. Diverticulitis/colitis due to #2 4. Need for sigmoid colon resection surgery in the very near future Activity: As commented below Activity Comment: gradually increase activity over the next 5 days Non-emergency contact: Primary Care Provider, Surgeon and Fagoting Machine Operator Call non-emergency contact if: you have any medication questions, your symptoms worsen and you have a fever Follow-up/Referrals: Yrn Mejia DO [Physician] - (can schedule a follow-up visit on an as needed basis with Dr Mejia, [facility]) Curtis Gardner MD [Physician] - (see Dr Gardner THIS COMING WEEK to discuss timing of surgery on your colon) Rickey Maddox [Primary Care Provider] - Diet: Low Fiber Addtl Attending Provider Instructions: You presented with severe abdominal distension/bloating due to severe constipation. CAT scan of the abdomen, and colonoscopy x 2 both showed evidence of a large diverticulum in your sigmoid colon that was impacted with stool. You also had what looked like a diverticular stricture (narrowing). Thus, diverticular disease was the cause of your problem. After 2 bowel preps (clean-outs) and the colonoscopies you are now moving your bowels well. Your distension/bloating is resolving. Both Dr Mejia and the surgeons feel that you will need surgery to remove the sigmoid colon which is the last part of the colon. You will need to have this surgery in the very near future. We also found a urinary tract infection, colitis/diverticulitis (due to the diverticular disease/constipation), and a cyst on your left kidney. Recommendations: 1. take amoxicillin-clavulanate antibiotic 1 pill twice daily for 7 days. Start TONIGHT. This is for your urinary infection and the colitis. 2. take etqe-ogf-gvasvyo miralax (glycolax) 1 serving twice daily mixed in water or juice; do this every day. 3. LOW FIBER DIET FOR THE NEXT 10 days -- see "low fiber" handout. 4. gradually increase the amount of solids in your diet over the next 2-3 days. 5. talk to your family doctor about seeing a UROLOGIST for the kidney cyst on the left side. You likely will need additional pictures of this. 6. you also have a nodule in your left adrenal gland which sits on TOP of the left kidney. This can also be addressed by your family doctor. 7. see Dr Gardner from [facility] THIS WEEK. 8. Continue to wear your mask any time you leave your home, practice social distancing (no large get-togethers), and continue to wash your hands frequently to reduce the chances of getting covid-19. 9. OK TO RESUME your eliquis TOMORROW morning, 10/02/20. Return to [facility] if: * you have fevers over 100 degrees * you have worsening abdominal pain * you have inability to move your bowels or pass gas * you have nausea and/or vomiting * any other concerns Pending Studies at Discharge: Yes Studies:: biopsies from the colon Stand-Alone Forms: My [facility], Smoking Cessation Medications and DC Order Prescriptions: New polyethylene glycol 3350 [Miralax] 17 gram Powder In Packet 17 g PO BID Qty: 60 RF: 5 Continued diltiazem HCl 240 mg capsule,extended release 24hr 240 mg PO QAM Qty: 90 RF: 3 digoxin 125 mcg (0.125 mg) tablet 125 mcg PO QPM Qty: 90 RF: 3 apixaban 5 mg tablet 5 mg PO BID Qty: 60 RF: 0 metoprolol succinate 100 mg tablet extended release 24 hr 100 mg PO QAM Qty: 30 RF: 0 metformin 500 mg tablet extended release 24hr 500 mg PO BID RF: 0 rosuvastatin 10 mg tablet 10 mg PO HS Qty: 90 RF: 0 Jardiance 10 mg tablet 10 mg PO QAM RF: 0 furosemide 40 mg tablet 40 mg PO QAM Qty: 45 RF: 0 glimepiride 4 mg tablet 2 mg PO DAILY RF: 0 potassium gluconate 595 mg (99 mg) Tablet 595 mg PO DAILY RF: 0 Discontinued ferrous sulfate 325 mg (65 mg iron) tablet 325 mg PO QAM Qty: 30 RF: 0 Discharge Orders: Discharge Order (Routine); Ordered 10/01/20 Ordered By: Fernando Loza/Other Patient Handouts: Low-Fiber Diet Admission Data Admit Date/Time: 09/26/20 19:52 Attending Provider: Fernando Cody Admit Provider: Sharmin Santoro Primary Care Provider: Rickey Maddox Other Providers: Yrn Mejia ; Curtis Gardner ; Sharmin Santoro Other Interventions: Discharge Summary Assessment (RN) Last Done: 10/01/20 08:17 Coding Level of Care Code D/C Day Management >30 mins Diagnoses Colonic obstruction K56.609 Constipation K59.00 Constipation type: unspecified constipation type Colitis K52.9 Diverticulitis K57.92 On anticoagulant therapy Z79.01 Pulmonary hypertension I27.20 Atrial fibrillation, permanent I48.21 Sleep apnea G47.30 Diabetes E11.9 Hypertension I10 Renal lesion N28.9 Adrenal adenoma D35.00 UTI (urinary tract infection) N39.0 Hemorrhoids K64.9
[2020-10-01] MEDS ORDERED: AMOXICILLIN/CLAVULANATE 875 MG TAB PO SCH (17:00)
== END 2020-10-01 18:07 | disposition home or self-care (01) | DRG 392 ==
LOC: ED 14:51 → SUATTDRO 19:52 → 3N 19:52